=== PATIENT | male | born 1980 | race Asian ===

== ENCOUNTER 2018-05-13 06:58 | Inpatient (IN) | payer OTHER ==
[2018-05-13] MEDS ORDERED: SODIUM CHLORIDE 1,000 ML IV STA ×3 (07:19→11:41)
--- NOTE | 2018-05-13 07:23 | PDOC ---
History of Present Illness - General History Source: Patient Exam Limitations: No Limitations - History of Present Illness Initial Comments: 05/13/18 07:17 Patient is a 37 year old male with PMH of alcohol dependence presents to ED with complaints of right quadrant abdominal pain that radiates to the back. Pain started yesterday and got worse when the patient went to a birthday constitution party. The pain is associated with vomiting and nausea is sharp and constant. He denies fever, chills, diarrhea, constipation, dysuria, chest pain. Patient says "everything is fine, just give me something for the pain". He denies drinking alcohol prior to presentation. His last drink was 3 weeks ago. He has been taking Advil and ibuprofen for pain. He had a similar pain in the past but it was never this intense PMH: alcohol dependence PSH: none Meds: Ibuprofen, advil Allergies: none Social: last drink was 3 weeks ago, denies tobacco use, denies marijuana, denies IV drug use <Gale Blankenship - Last Filed: 05/13/18 09:59> <Jennifer Garcia - Last Filed: 05/13/18 13:13> - General Chief Complaint: Nausea/Vomiting Stated Complaint: NAUSEA,VOMITING Time Seen by Provider: 05/13/18 07:05 Past History - Past Medical History Anemia: No Asthma: Yes (Not on medication) Cardiac Disorders: No CVA: No COPD: No CHF: No Diabetes: No GI Disorders: No Disorders: No HTN: No Hypercholesterolemia: No Kidney Stones: No Liver Disease: No Seizures: No Thyroid Disease: No - Surgical History Abdominal Surgery: No Appendectomy: No Cardiac Surgery: No Cholecystectomy: No Lung Surgery: No Neurologic Surgery: No Orthopedic Surgery: No - Reproductive History Testicular Surgery: No - Suicide/Smoking/Psychosocial Hx Smoking History: Never smoked Have you smoked in the past 12 months: No Information on smoking cessation initiated: No Hx Alcohol Use: No Drug/Substance Use Hx: No Substance Use Type: Alcohol Hx Substance Use Treatment: Yes ([facility]) <Gale Blankenship - Last Filed: 05/13/18 09:59> <Jennifer Garcia - Last Filed: 05/13/18 13:13> - Past Medical History Allergies/Adverse Reactions: Allergies Allergy/AdvReac Type Severity Reaction Status Date / Time No Known Allergies Allergy Verified 05/13/18 07:05 Home Medications: Ambulatory Orders Albuterol Sulfate Inhaler - [Ventolin Hfa Inhaler -] 2 inh PO Q6H 08/12/15 Review of Systems - Review of Systems Able to Perform ROS?: Yes Constitutional: No: Chills, Fever HEENTM: No: Nose Congestion, Difficulty Swallowing Respiratory: No: Cough, Shortness of Breath Cardiac (ROS): No: Chest Pain ABD/GI: Yes: See HPI, Nausea, Vomiting, Abdominal cramping (Right sided abdominal pain) : Yes: Flank Pain. No: Dysuria, Hematuria Musculoskeletal: Yes: Back Pain. No: Joint Pain, Muscle Pain <Gale Blankenship - Last Filed: 05/13/18 09:59> *Physical Exam - Vital Signs Last Vital Signs Temp Pulse Resp BP Pulse Ox 97.6 F 77 18 154/72 99 05/13/18 07:05 05/13/18 07:05 05/13/18 07:05 05/13/18 07:05 05/13/18 07:05 - Physical Exam General Appearance: Yes: Appropriately Dressed, Mild Distress (Patient sitting in bed holding abdomen) HEENT: positive: EOMI, CHRIST, Normal Voice. negative: Pharyngeal Erythema, Tonsillar Exudate, Tonsillar Erythema Neck: positive: Trachea midline, Supple Respiratory/Chest: positive: Lungs Clear, Normal Breath Sounds. negative: Crackles, Rales, Wheezing Cardiovascular: positive: Regular Rhythm, Regular Rate, S1, S2. negative: JVD, Murmur Gastrointestinal/Abdominal: positive: Normal Bowel Sounds, Soft. negative: Guarding, Rebound, Tenderness Musculoskeletal: negative: CVA Tenderness, Vertebral Tenderness Extremity: positive: Normal Capillary Refill Neurologic: positive: loom checker II-XII NML intact, Fully Oriented, Alert, Normal Mood/ Affect, Normal Response <Gale Blankenship - Last Filed: 05/13/18 09:59> - Vital Signs Last Vital Signs Temp Pulse Resp BP Pulse Ox 98.0 F 68 18 159/104 100 05/13/18 12:44 05/13/18 12:44 05/13/18 07:05 05/13/18 12:44 05/13/18 12:44 <Jennifer Garcia - Last Filed: 05/13/18 13:13> Procedures - Bedside Ultrasound Bedside Ultrasound: Gallbladder Other: Kidney, bladder Remarks: 05/13/18 08:34 GB: normal in size, no wall thickening, no stones. Duct normal in size. Kidney: Hyperechoic focus in R kidney pelvis; possible stone will get spiral CT. L kidney normal in size. No hydronephrosis in R or L kidney. Bladder: Bladder is full. Hyperechoic focus in prostatic urethra; possible stone <Gale Blankenship - Last Filed: 05/13/18 09:59> ED Treatment Course - LABORATORY CBC & Chemistry Diagram: 05/13/18 08:00 05/13/18 08:00 <Gale Blankenship - Last Filed: 05/13/18 09:59> - LABORATORY CBC & Chemistry Diagram: 05/13/18 08:00 05/13/18 09:48 - ADDITIONAL ORDERS Additional order review: Laboratory Results 05/13/18 05/13/18 05/13/18 11:36 09:48 09:48 Sodium Potassium Chloride Carbon Dioxide Anion Gap BUN Creatinine Creat Clearance w eGFR Random Glucose Lactic Acid 2.1 H Calcium Total Bilirubin AST ALT Alkaline Phosphatase Total Protein Albumin Lipase Cancelled Urine Color Urine Appearance Urine pH Ur Specific [place] Urine Protein Urine Glucose (UA) Urine Ketones Urine Blood Urine Nitrite Urine Bilirubin Urine Urobilinogen Ur Leukocyte Esterase Opiates Screen Methadone Screen Barbiturate Screen Phencyclidine Screen Ur Amphetamines Screen MDMA (Ecstasy) Screen Benzodiazepines Screen Cocaine Screen U Marijuana (THC) Screen Alcohol, Quantitative < 5.0 05/13/18 05/13/18 05/13/18 09:48 09:48 09:48 Sodium 134 L Potassium 3.7 Chloride 102 Carbon Dioxide 22 D Anion Gap 10 BUN 17 Creatinine 0.9 Creat Clearance w eGFR > 60 Random Glucose 163 H D Lactic Acid Calcium 8.9 Total Bilirubin 0.4 AST 17 D ALT 39 D Alkaline Phosphatase 76 Total Protein 7.8 Albumin 4.2 Lipase 135 Urine Color Yellow Urine Appearance Clear Urine pH 8.0 Ur Specific [place] 1.024 Urine Protein Negative Urine Glucose (UA) 2+ H Urine Ketones 1+ H Urine Blood Negative Urine Nitrite Negative Urine Bilirubin Negative Urine Urobilinogen Negative Ur Leukocyte Esterase Negative Opiates Screen Negative Methadone Screen Negative Barbiturate Screen Negative Phencyclidine Screen Negative Ur Amphetamines Screen Negative MDMA (Ecstasy) Screen Negative Benzodiazepines Screen Negative Cocaine Screen Negative U Marijuana (THC) Screen Negative Alcohol, Quantitative 05/13/18 05/13/18 05/13/18 08:15 08:00 08:00 Sodium Potassium Chloride Carbon Dioxide Anion Gap BUN Creatinine Creat Clearance w eGFR Random Glucose Lactic Acid 2.8 H* Calcium Total Bilirubin AST ALT Alkaline Phosphatase Total Protein Albumin Lipase Cancelled Urine Color Urine Appearance Urine pH Ur Specific [place] Urine Protein Urine Glucose (UA) Urine Ketones Urine Blood Urine Nitrite Urine Bilirubin Urine Urobilinogen Ur Leukocyte Esterase Opiates Screen Methadone Screen Barbiturate Screen Phencyclidine Screen Ur Amphetamines Screen MDMA (Ecstasy) Screen Benzodiazepines Screen Cocaine Screen U Marijuana (THC) Screen Alcohol, Quantitative Cancelled 05/13/18 08:00 Sodium Cancelled Potassium Cancelled Chloride Cancelled Carbon Dioxide Cancelled Anion Gap Cancelled BUN Cancelled Creatinine Cancelled Creat Clearance w eGFR Cancelled Random Glucose Cancelled Lactic Acid Calcium Cancelled Total Bilirubin Cancelled AST Cancelled ALT Cancelled Alkaline Phosphatase Cancelled Total Protein Cancelled Albumin Cancelled Lipase Cancelled Urine Color Urine Appearance Urine pH Ur Specific [place] Urine Protein Urine Glucose (UA) Urine Ketones Urine Blood Urine Nitrite Urine Bilirubin Urine Urobilinogen Ur Leukocyte Esterase Opiates Screen Methadone Screen Barbiturate Screen Phencyclidine Screen Ur Amphetamines Screen MDMA (Ecstasy) Screen Benzodiazepines Screen Cocaine Screen U Marijuana (THC) Screen Alcohol, Quantitative 05/13/18 08:00 RBC 4.84 MCV 86.3 MCHC 34.1 RDW 14.3 MPV 8.2 Neutrophils % 89.5 H Lymphocytes % 7.4 L Monocytes % 2.6 L Eosinophils % 0.0 Basophils % 0.5 - Medications Given in the ED: ED Medications Discontinued Medications Generic Name Dose Route Start Last Admin Trade Name Zahida PRN Reason Stop Dose Admin Acetaminophen 1,000 mg 05/13/18 07:52 05/13/18 08:10 Ofirmev Injection - IVPB 05/13/18 07:53 1,000 mg ONCE ONE Administration Al Hydroxide/Mg Hydroxide 30 ml 05/13/18 07:52 05/13/18 08:49 Mylanta Oral Suspension - PO 05/13/18 07:53 30 ml ONCE ONE Administration Diphenhydramine HCl 25 mg 05/13/18 12:21 05/13/18 12:33 Benadryl Injection - IVPUSH 05/13/18 12:22 25 mg ONCE ONE Administration Sodium Chloride 1,000 mls @ 1,000 mls/hr 05/13/18 07:19 05/13/18 08:00 Normal Saline - IV 05/13/18 08:18 1,000 mls/hr ASDIR STA Administration Famotidine/Sodium Chloride 20 mg in 50 mls @ 100 mls/hr 05/13/18 07:53 08:10 Pepcid 20 Mg Premixed Ivpb - IVPB 05/13/18 08:22 100 mls/hr ONCE ONE Administration Sodium Chloride 1,000 mls @ 1,000 mls/hr 05/13/18 09:42 05/13/18 09:52 Normal Saline - IV 05/13/18 10:41 1,000 mls/hr ASDIR STA Administration Sodium Chloride 1,000 mls @ 1,000 mls/hr 05/13/18 11:41 05/13/18 12:12 Normal Saline - IV 05/13/18 12:40 1,000 mls/hr ASDIR STA Administration Famotidine/Sodium Chloride 20 mg in 50 mls @ 100 mls/hr 05/13/18 11:42 12:12 Pepcid 20 Mg Premixed Ivpb - IVPB 05/13/18 12:11 100 mls/hr ONCE ONE Administration Piperacillin Sod/Tazobactam 50 mls @ 100 mls/hr 05/13/18 11:47 05/13/18 12:33 Sod 3.375 gm/ Dextrose IVPB 05/13/18 12:16 100 mls/hr ONCE ONE Administration Protocol Morphine Sulfate 4 mg 05/13/18 09:43 05/13/18 09:54 Morphine Injection - IVPUSH 05/13/18 09:44 4 mg ONCE ONE Administration Morphine Sulfate 4 mg 05/13/18 11:42 05/13/18 12:12 Morphine Injection - IVPUSH 05/13/18 11:43 4 mg ONCE ONE Administration Ondansetron HCl 4 mg 05/13/18 07:52 05/13/18 08:10 Zofran Injection IVPUSH 05/13/18 07:53 4 mg ONCE ONE Administration <Jennifer Garcia - Last Filed: 05/13/18 13:13> Medical Decision Making - Medical Decision Making 05/13/18 08:06 Patient is a 37 year old male with PMH of alcohol dependence presenting to ED with complaints of R sided abdominal pain and vomiting. DDX: pancreatitis, appendicitis, cholecystitis, nephrolithiasis, gastritis, PUD CBC, CMP, lipase, alcohol level, UA and Uds ordered. Patient was given a bolus of NS and Tylenol for pain control. Elevated WBC at 13. Lactate elevated at 2.8 Ultrasound done at bedside. Gallbladder appeared normal in size, no stones. No ductal dilatation. Kidney: no hydronephrosis of R or L kidney. Possible stone in R kidney ( hyperechoic focus) Bladder: hyperechoic focus in prostatic urethra Can rule out cholecystitis. Spiral CT: <Gale Blankenship - Last Filed: 05/13/18 09:59> *DC/Admit/Observation/Transfer <Gale Blankenship - Last Filed: 05/13/18 09:59> - Discharge Dispostion Decision to Admit order: Yes Decision to Admit order Date/Time: Decision to Admit Order Category Date Time Status Decision to Admit to Hospital Routine Admission 05/13/18 11:46 Active <Jennifer Garcia - Last Filed: 05/13/18 13:13> Diagnosis at time of Disposition: Appendicitis
[2018-05-13] MEDS ORDERED: MAG HYDROX/AL HYDROX/SIMETH 30 ML UNIT-DOSE CUP PO ONE (07:52)
[2018-05-13] MEDS ORDERED: ACETAMINOPHEN 1000 MG/100 ML VIAL (NON FORMULARY) IVPB ONE (07:52)
[2018-05-13] MEDS ORDERED: ONDANSETRON 4 MG/2 ML VIAL IVPUSH ONE (07:52)
[2018-05-13] MEDS ORDERED: FAMOTIDINE 20 MG/50 ML IVPB 20 MG/50 ML MG IVPB ONE ×4 (07:53→12:01)
[2018-05-13] MEDS ORDERED: ONDANSETRON 4 MG/2 ML VIAL ONE (08:06)
[2018-05-13] MEDS ORDERED: ACETAMINOPHEN INJECTION 100 ML IVPB ONE (08:06)
[2018-05-13] MEDS ORDERED: MAG HYDROX/AL HYDROX/SIMETH 30 ML UNIT-DOSE CUP ONE (08:06)
[2018-05-13 08:29] LABS: BASO % 0.5 % (0-2.0); HEMATOCRIT 41.8 % (35.4-49); HEMOGLOBIN 14.2 GM/dL (11.7-16.9); LYMPH % 7.4 % (8-40); MCH 29.5 pg (25.7-33.7); MCHC 34.1 g/dl (32.0-35.9); MEAN CELL VOLUME 86.3 fl (80-96); MEAN PLT VOLUME 8.2 fl (7.5-11.1); MONO % 2.6 % (3.8-10.2); NEUT % 89.5 % (42.8-82.8); PLATELET COUNT 320 K/MM3 (134-434); RBC 4.84 M/mm3 (4.00-5.60); RDW 14.3 % (11.9-15.9); WHITE BLOOD COUNT 13.6 K/mm3 (4.0-10.0)
--- NOTE | 2018-05-13 08:44 | PDOC ---
Attending Attestation - HPI HPI: 05/13/18 08:55 The patient is a 37 year old male with a significant past medical history of alcohol dependence who presents to the emergency department for evaluation of a 1 day history of abdominal pain. The patient reports moderate right sided abdominal pain since yesterday evening. Pt describes the right sided pain as severe, radiating to the lower abdomen and back. He reports associated symptoms of decreased PO intake and 11 episodes of non-bloody emesis since last night. Pt states his abdominal pain worsened after vomiting secondary to eating food at a birthday republican. He endorses 1 episode of the aforementioned symptoms several months ago. The patient states his last alcohol consumption was 3 weeks ago. Of note, the patient reports taking advil this morning with alleviation to his symptoms. The patient denies history of gallstones, abdominal surgeries, chest pain, shortness of breath, headache, fever, chills, diarrhea, and constipation. Denies urinary frequency/urgency, dysuria, and hematuria. Allergies: NKDA Social History: Hx of alcohol dependence. No reported cigarette or drug use. Surgical History: Pt denies. <Мария Carranza - Last Filed: 05/13/18 08:55> - Resident Resident Name: Gale Blankenship - ED Attending Attestation I have performed the following: I have examined & evaluated the patient, The case was reviewed & discussed with the resident, I agree w/resident's findings & plan, Exceptions are as noted - Physicial Exam PE: 05/13/18 08:38 awake alert lungs clear bilaterally. heart rrr no mrg. abd soft mild ruq ttp. neg pierce's no rebound no guarding. no cva tenderness.ext wwp no edema. skin warm and dry. nuero alert oriented x 3. - Medical Decision Making 05/13/18 08:44 37 yo male with h/o etoh abuse. here with right upper quadrant pain, no mod factors. n/v. vomiting several times since yesterday. last etoh was 3 weeks ago. denies any other drug use. differential cholelithiasis, renal colic, gastritois, pancreatitis. plan zofran , fliuds, pain control. bedside us ruq and renal. possible ct if nondiagnostic. 05/13/18 09:57 focused ED ultrasound renal indication: flank right upper quad abd pain bilateral kidneys scanned in two planes. no hydronephrosis noted. intrarenal calcification/ hyperechoic focus noted possible calculus. bladder distended. impressions: right kidney with hyperechoic focus possible stone, no hydronephrosis. full bladder. focused ED ultrasound abd gallbladder, indication ruq pain gallbladder scanned in two planes. no cholelithiasis, normal wall no edema. no pericholecystic fluid, neg pierce's. cbd normal ( <4mm) impression: normal gallbladder. plan ct a/p r/o stone. pt still with pain, given morphine 4 mg. <Jennifer Garcia - Last Filed: 05/13/18 12:22> Heart Score/ECG Review #1 General ECG Interpretation: Sinus Rhythm (68), Normal Rate, Normal Intervals, No acute ischemic changes <Jennifer Garcia - Last Filed: 05/13/18 12:22> Attestations - Attestations Documentation prepared by Мария Carranza, acting as diagnostic medical sonographer for Jennifer Garcia MD. <Мария Carranza - Last Filed: 05/13/18 08:55>
[2018-05-13] MEDS ORDERED: morphine CARPU-JECT 4 MG/1 ML DISP.SYRIN IVPUSH ONE ×2 (09:43→11:42)
[2018-05-13] MEDS ORDERED: morphine SULFATE 4 MG/ML VIAL ONE (09:53)
[2018-05-13 10:19] LABS: URINE APPEARANCE CLEAR; URINE BILIRUBIN NEGATIVE (<2.0 mg/dL); URINE COLOR YELLOW; URINE GLUCOSE (UA) 2+ (NEGATIVE); URINE KETONE 1+ (NEGATIVE); URINE LEUK ESTERASE NEGATIVE (NEGATIVE); URINE NITRITE NEGATIVE (NEGATIVE); URINE PROTEIN NEGATIVE (NEGATIVE); URINE UROBILINOGEN NEGATIVE mg/dL (0.2-1.0)
[2018-05-13 10:46] LABS: ALBUMIN 4.2 g/dl (3.4-5.0); ALK PHOS 76 U/L (45-117); ANION GAP 10 (8-16); BILIRUBIN,TOTAL 0.4 mg/dL (0.2-1.0); BLOOD UREA NITROGEN 17 mg/dL (7-18); CALCIUM 8.9 mg/dL (8.5-10.1); CHLORIDE 102 mmol/L (98-107); CO2 22 mmol/L (21-32); CREATININE 0.9 mg/dL (0.7-1.3); GLUCOSE,RANDOM 163 mg/dL (74-106); LIPASE 135 U/L (73-393); POTASSIUM 3.7 mmol/L (3.5-5.1); SGOT/AST 17 U/L (15-37); SGPT/ALT 39 U/L (12-78); SODIUM 134 mmol/L (136-145); TOT PROT 7.8 g/dl (6.4-8.2)
[2018-05-13 10:53] LABS: COCAINE, UR NEGATIVE ng/ml (CUTOFF=300); METHADONE, UR NEGATIVE ng/ml (CUTOFF=300); OPIATES, URI NEGATIVE ng/ml (CUTOFF=300); PHENCYCLIDINE,URINE NEGATIVE ng/ml (CUTOFF=25); URINE AMPHETAMINES NEGATIVE ng/ml (CUTOFF=500); URINE BARBITURATES NEGATIVE ng/ml (CUTOFF=200); URINE BENZODIAZEPINES NEGATIVE ng/ml (CUTOFF=200)
[2018-05-13] MEDS ORDERED: PIPERACILLIN/TAZOB 3.375 GM 3.375 GM in DEXTROSE 5%-WATER - 50 ML IVPB ONE (11:47)
[2018-05-13] MEDS ORDERED: PIPERACILLIN/TAZOB 3.375 GM 3.375 GM/50 ML BAG IVPB ONE (12:01)
[2018-05-13] MEDS ORDERED: MORPHINE SULFATE 2 MG/ML VIAL ONE (12:01)
[2018-05-13 13:13] LABS: INR 1.14 (0.82-1.09); PROTHROMBIN TIME (PATIENT) 12.9 SEC (9.7-13.0)
[2018-05-13 13:16] LABS: ACTIVATED PTT 32.6 SECONDS (25.2-36.5)
--- NOTE | 2018-05-13 13:34 | HP ---
Admitting History and Physical - Admission Chief Complaint: abdominal pain History of Present Illness: This is a 37 year old male with pmhx of heavy alcohol dependence, stopped 3 weeks ago, pre diabetes, asthma who presented to the ED with abdominal pain and vomiting. Pt reports pain started yesterday, RUQ and then he went to a democrat. He returned and started vomiting with pain referring to bilateral back. By 6am he decided to come to ED. Denies fever, chills, sob, chest pain, bloody emesis. History Source: Patient Limitations to Obtaining History: No Limitations - Past Medical History Pulmonary: Yes: Asthma Endocrine: Yes: Diabetes Mellitus - Smoking History Smoking history: Never smoked Have you smoked in the past 12 months: No - Alcohol/Substance Use Hx Alcohol Use: No History of Substance Use: reports: None - Social History Usual Living Arrangement: Yes: With Spouse ADL: Independent Occupation: CPA History of Recent Travel: No Home Medications - Allergies Allergies/Adverse Reactions: Allergies Allergy/AdvReac Type Severity Reaction Status Date / Time No Known Allergies Allergy Verified 05/13/18 07:05 - Home Medications Home Medications: Ambulatory Orders Albuterol Sulfate Inhaler - [Ventolin Hfa Inhaler -] 2 inh PO Q6H 08/12/15 Family Disease History - Family Disease History Family Disease History: CA: Mother (Breast Ca- ) Review of Systems - Review of Systems Constitutional: reports: No Symptoms Eyes: reports: No Symptoms HENT: reports: No Symptoms Neck: reports: No Symptoms Cardiovascular: reports: No Symptoms Respiratory: reports: No Symptoms Gastrointestinal: reports: Abdominal Pain, Vomiting Genitourinary: reports: No Symptoms Musculoskeletal: reports: Back Pain Integumentary: reports: No Symptoms Neurological: reports: No Symptoms Endocrine: reports: No Symptoms Hematology/Lymphatic: reports: No Symptoms Physical Examination Vital Signs: Vital Signs Temperature 98.0 F 05/13/18 12:44 Pulse Rate 68 05/13/18 12:44 Respiratory Rate 18 05/13/18 07:05 Blood Pressure 159/104 05/13/18 12:44 O2 Sat by Pulse Oximetry (%) 100 05/13/18 12:44 Constitutional: Yes: Well Nourished Eyes: Yes: Conjunctiva Clear HENT: Yes: Atraumatic Neck: Yes: Supple Cardiovascular: Yes: Regular Rate and Rhythm, S1, S2 Respiratory: Yes: Regular, CTA Bilaterally Gastrointestinal: Yes: Soft, Other (RUQ tenderness, RLQ tenderness to deep palpation) Renal/: Yes: WNL Musculoskeletal: Yes: Back Pain Extremities: Yes: WNL Edema: No Neurological: Yes: Alert, Oriented, Cran Nerves II-XII Intact Labs: CBC, BMP 05/13/18 08:00 05/13/18 09:48 Imaging - Results Cat Scan: Report Reviewed (acute early appendicitis) Problem List - Problems (1) Appendicitis Code(s): K37 - UNSPECIFIED APPENDICITIS Assessment/Plan Assessment: 37 year male admitted with abdominal pain Plan: 1. Acute appendicitis - NPO - Zosyn in ED - For OR today for appendectomy - Defer abx until discuss findings with surgery - Cont IVF 2. Lactic acidosis - Due to above - Continue IVF 3. Leukocytosis - Due to above vs vomiting 4. DVT - SCDS Visit type - Emergency Visit Emergency Visit: Yes Care time: The patient presented to the Emergency Department on the above date and was hospitalized for further evaluation of their emergent condition. - New Patient This patient is new to me today: Yes Date on this admission: 05/13/18 - Critical Care Critical Care patient: No Hospitalist Screening - Colonoscopy Questionnaire Colonoscopy Questionnaire: Colonoscopy Questionnaire - Patient: 50 - 75 years old and never had a screening colonoscopy: Unknown History of colon or rectal polyps, or CA: Unknown History of IBD, Crohn's disease or UC: Unknown History of abdominal radiation therapy as a child: Unknown - Relative: 1 with colon or rectal CA, or polyps at age 60 or younger: Unknown Colon or rectal CA diagnosed at age 45 or younger: Unknown Multiple relatives with colon or rectal CA: Unknown - Outcome: Screening Result: Negative Screen
[2018-05-13] MEDS ORDERED: MIDAZOLAM HCL 2 MG/2 ML SINGLE DOSE VIAL ONE (13:40)
[2018-05-13] MEDS ORDERED: ROCURONIUM BROMIDE 50 MG/5 ML VIAL ONE (13:41)
[2018-05-13] MEDS ORDERED: LIDOCAINE HCL/PF 2% SDV 5ML VIAL ONE (13:41)
[2018-05-13] MEDS ORDERED: PROPOFOL 20 ML ONE (13:41)
[2018-05-13] MEDS ORDERED: BUPIVACAINE HCL/PF 0.5% (5MG/ML) 10 ML VIAL ONE (13:46)
[2018-05-13] MEDS ORDERED: morphine CARPU-JECT 2 MG/1 ML DISP.SYRIN IVPUSH PRN (13:48)
[2018-05-13] MEDS ORDERED: ONDANSETRON 4 MG/2 ML VIAL IVPUSH PRN ×3 (13:49→15:44)
[2018-05-13] MEDS ORDERED: MORPHINE SULFATE 2 MG/ML VIAL IVPUSH PRN (13:50)
[2018-05-13] MEDS ORDERED: PROMETHAZINE HCL 25 MG/1 ML VIAL IVPUSH PRN (13:51)
[2018-05-13] MEDS ORDERED: LACTATED RINGERS SOLUTION 1,000 ML IV SCH (14:00)
[2018-05-13] MEDS ORDERED: SODIUM CHLORIDE 1,000 ML IV SCH (14:00)
[2018-05-13] MEDS ORDERED: DEXAMETHASONE SOD PHOSPHATE 4 MG/1 ML VIAL ONE (14:24)
[2018-05-13] MEDS ORDERED: BUPIVACAINE HCL/PF 0.5% (5MG/ML) 10 ML VIAL IJ ONE ×2 (14:38)
[2018-05-13] MEDS ORDERED: GLYCOPYRROLATE 0.2 MG/1 ML VIAL ONE (14:50)
[2018-05-13] MEDS ORDERED: KETOROLAC TROMETHAMINE 30 MG/1 ML VIAL ONE (14:50)
[2018-05-13] MEDS ORDERED: NEOSTIGMINE METHYLSULFATE 0.5 MG/ML - 10 ML MDV ONE (14:51)
[2018-05-13] MEDS ORDERED: oxyCODONE HCL 5 MG TABLET PO PRN (15:30)
[2018-05-13] MEDS ORDERED: ALBUTEROL SO4 8 GM HFA INHALER IH PRN (15:31)
--- NOTE | 2018-05-13 15:33 | OP ---
Operative Note - Note: Operative Date: 05/13/18 Pre-Operative Diagnosis: acute appendicitis Operation: lap appendectomy Findings: acute appendicitis Post-Operative Diagnosis: Same as Pre-op Surgeon: Kalpesh Godwin Field Operations Supervisor: Latisha Arteaga Anesthesiologist/AIR PURIFIER SERVICER: Del Chambers Anesthesia: General Specimens Removed: appendix Estimated Blood Loss (mls): 20 Drains & Tubes with Location: 10 mm LOBO
--- NOTE | 2018-05-13 15:34 | SURG ---
Surgery Lighting Specialist Note Lighting Specialist: Latisha Arteaga PA-C Date of Service: 05/13/18 Diagnosis: acute appendicitis Procedure: laparoscopic appendectomy I was present for the entirety of the operative procedure. For further detail, please refer to operative report. Visit type - Case Type Case Type: ED Admission - Emergency Emergency Visit: Yes Care time: The patient presented to the Emergency Department on the above date and was hospitalized for further evaluation of their emergent condition. - New patient This patient is new to me today: Yes Date on this admission: 05/13/18
[2018-05-13] MEDS: LACTATED RINGERS SOLUTION 1,000 ML IV SCH (15:56)
[2018-05-13] MEDS: ACETAMINOPHEN 325 MG TABLET (FP) PO SCH (18:34)
[2018-05-13 19:34] VITALS: BMI 27.3
[2018-05-13] MEDS: HEPARIN NA (PORCINE) 5,000 UNITS/ML 1ML VIAL SQ SCH (22:23)
[2018-05-13] MEDS ORDERED: KETOROLAC TROMETHAMINE 30 MG/1 ML VIAL IVPUSH PRN (22:28)
[2018-05-14] MEDS: ACETAMINOPHEN 325 MG TABLET (FP) PO SCH ×4 (00:11→12:33)
[2018-05-14] MEDS: oxyCODONE HCL 5 MG TABLET PO PRN ×5 (00:31→22:12)
[2018-05-14] MEDS: LACTATED RINGERS SOLUTION 1,000 ML IV SCH (01:08)
[2018-05-14 08:34] LABS: BASO % 0.1 % (0-2.0); HEMATOCRIT 36.9 % (35.4-49); HEMOGLOBIN 12.6 GM/dL (11.7-16.9); LYMPH % 5.9 % (8-40); MCH 29.2 pg (25.7-33.7); MCHC 34.2 g/dl (32.0-35.9); MEAN CELL VOLUME 85.4 fl (80-96); MEAN PLT VOLUME 7.8 fl (7.5-11.1); MONO % 5.6 % (3.8-10.2); NEUT % 88.4 % (42.8-82.8); PLATELET COUNT 274 K/MM3 (134-434); RBC 4.32 M/mm3 (4.00-5.60); RDW 14.2 % (11.9-15.9); WHITE BLOOD COUNT 19.5 K/mm3 (4.0-10.0)
--- NOTE | 2018-05-14 08:35 | EKG ---
Test Reason : Blood Pressure : / mmHG Vent. Rate : 068 BPM Atrial Rate : 068 BPM P-R Int : 126 ms QRS Dur : 108 ms QT Int : 406 ms P-R-T Axes : 046 059 040 degrees QTc Int : 431 ms NORMAL SINUS RHYTHM NORMAL ECG WHEN COMPARED WITH ECG OF 20-APR-2018 21:36, VENT. RATE HAS DECREASED BY 42 BPM Confirmed by RACHEL ALBERTO MD ([id number]) on 05/14/2018 8:34:53 AM Referred By: Confirmed By:RACHEL ALBERTO MD
[2018-05-14 09:05] LABS: CHLORIDE 99 mmol/L (98-107); POTASSIUM 3.5 mmol/L (3.5-5.1); SODIUM 133 mmol/L (136-145)
--- NOTE | 2018-05-14 09:13 | PN ---
Progress Note, Physician Chief Complaint: day #1 s/p lap AP - Current Medication List Current Medications: Active Medications Acetaminophen (Tylenol -) 650 mg PO Q6H [facility] Stop: 05/14/18 12:01 Last Admin: 05/14/18 06:46 Dose: 650 mg Albuterol Sulfate (Ventolin Hfa Inhaler -) 2 puff IH Q6H PRN PRN Reason: SHORT OF BREATH/WHEEZING Heparin Sodium (Porcine) (Heparin -) 5,000 unit SQ BID PAUL Last Admin: 05/13/18 22:23 Dose: 5,000 unit Sodium Chloride (Normal Saline -) 1,000 mls @ 83 mls/hr IV ASDIR PAUL Ondansetron HCl (Zofran Injection) 4 mg IVPUSH Q6H PRN PRN Reason: NAUSEA Oxycodone HCl (Roxicodone -) 5 mg PO Q6H PRN PRN Reason: PAIN LEVEL 1-5 Last Admin: 05/13/18 18:32 Dose: 5 mg Oxycodone HCl (Roxicodone -) 10 mg PO Q6H PRN PRN Reason: PAIN LEVEL 6-10 Last Admin: 05/14/18 06:23 Dose: 10 mg - Objective Vital Signs: Vital Signs Temperature 98.9 F 05/14/18 09:05 Pulse Rate 104 H 05/14/18 09:05 Respiratory Rate 20 05/14/18 09:05 Blood Pressure 107/55 05/14/18 09:05 O2 Sat by Pulse Oximetry (%) 97 05/14/18 09:06 Labs: CBC, BMP 05/14/18 07:58 INR, PTT INR 1.14 (0.82-1.09) 05/13/18 12:46 Assessment/Plan No anesthetic issues; pain well controlled, no N/V, ambulating well. Minor c/o urinary frequency, pt to discuss w/ surgical team
[2018-05-14] MEDS ORDERED: SODIUM CHLORIDE 1,000 ML IV SCH ×2 (09:15→11:47)
[2018-05-14 09:17] LABS: ALBUMIN 3.8 g/dl (3.4-5.0); ALK PHOS 63 U/L (45-117); ANION GAP 9 (8-16); BILIRUBIN,TOTAL 0.8 mg/dL (0.2-1.0); BLOOD UREA NITROGEN 11 mg/dL (7-18); CALCIUM 8.9 mg/dL (8.5-10.1); CO2 25 mmol/L (21-32); CREATININE 1.1 mg/dL (0.7-1.3); GLUCOSE,RANDOM 126 mg/dL (74-106); MAGNESIUM 1.9 mg/dL (1.8-2.4); PHOSPHOROUS 2.8 mg/dL (2.5-4.9); SGOT/AST 14 U/L (15-37); SGPT/ALT 32 U/L (12-78); TOT PROT 7.4 g/dl (6.4-8.2)
[2018-05-14] MEDS: HEPARIN NA (PORCINE) 5,000 UNITS/ML 1ML VIAL SQ SCH ×2 (09:18→17:44)
--- NOTE | 2018-05-14 11:23 | PN ---
Progress Note (short form) - Note Progress Note: Attending Surgeon POD#1 No c/o; tolerated clear liquids; ambulating and voiding VSS T max 101.9 abdo-soft and non tender; port sites c/d/i LOBO-seropurulent WBC 19.2 IMP: s/p lap appendectomy PLAN. Continue present tx.; will start antibiotics given presence of fecalith at time of surgery(transection of the appendix) and sero purulent drainageg and elevated WBBC; will get ID Consult as well. Kalpesh Godwin MD FACS
[2018-05-14] MEDS ORDERED: CEFTRIAXONE 2 GM in DEXTROSE 5%-WATER 100 ML IVPB ONE (11:45)
--- NOTE | 2018-05-14 11:54 | PN ---
Physical Exam: SUBJECTIVE: Patient seen and examined. He has abdominal tenderness, has no passed gas, is urinating. Per RN states he has urinary hesitancy, no pain. OBJECTIVE: Vital Signs Period Temp Pulse Resp BP Sys/Farfan Pulse Ox Last 24 Hr 98 F-101.7 F 68-112 18-20 103-159/55-104 97-100 PE Neuro: alert, awake, cn 2-12intact Pulm: diminished basilar crackles CV: s1 s2 rrr no mrg Abd: distended, LLQ drain cloudy drainage, lower pubic site tenderness x3 incision sites cdi Ext: warm, no le edema Laboratory Results - last 24 hr 05/13/18 05/13/18 05/13/18 11:36 12:46 12:50 WBC RBC Hgb Hct MCV MCH MCHC RDW Plt Count MPV Absolute Neuts (auto) Neutrophils % Lymphocytes % Monocytes % Eosinophils % Basophils % Nucleated RBC % PT with INR 12.90 INR 1.14 PTT (Actin FS) 32.6 Sodium Potassium Chloride Carbon Dioxide Anion Gap BUN Creatinine Creat Clearance w eGFR Random Glucose Lactic Acid 2.1 H Calcium Phosphorus Magnesium Total Bilirubin AST ALT Alkaline Phosphatase Total Protein Albumin Blood Type A POSITIVE Antibody Screen Negative 05/14/18 05/14/18 05/14/18 07:58 07:58 07:58 WBC 19.5 H RBC 4.32 Hgb 12.6 Hct 36.9 MCV 85.4 MCH 29.2 MCHC 34.2 RDW 14.2 Plt Count 274 MPV 7.8 Absolute Neuts (auto) 17.3 Neutrophils % 88.4 H Lymphocytes % 5.9 L D Monocytes % 5.6 D Eosinophils % 0.0 Basophils % 0.1 Nucleated RBC % 0 PT with INR INR PTT (Actin FS) Sodium 133 L Potassium 3.5 Chloride 99 Carbon Dioxide 25 Anion Gap 9 BUN 11 Creatinine 1.1 Creat Clearance w eGFR > 60 Random Glucose 126 H D Lactic Acid 1.6 Calcium 8.9 Phosphorus 2.8 Magnesium 1.9 Total Bilirubin 0.8 AST 14 L ALT 32 Alkaline Phosphatase 63 D Total Protein 7.4 Albumin 3.8 Blood Type Antibody Screen Active Medications Generic Name Dose Route Start Last Admin Trade Name Freq PRN Reason Stop Dose Admin Acetaminophen 650 mg 05/13/18 18:00 05/14/18 06:46 Tylenol - PO 05/14/18 12:01 650 mg Q6H PAUL Administration Albuterol Sulfate 2 puff 05/13/18 15:31 Ventolin Hfa Inhaler - IH Q6H PRN SHORT OF BREATH/WHEEZING Heparin Sodium (Porcine) 5,000 unit 05/14/18 14:00 Heparin - SQ TID PAUL Ceftriaxone Sodium 2 gm/ 100 mls @ 200 mls/hr 05/14/18 11:45 Dextrose IVPB 05/14/18 12:14 ONCE ONE Metronidazole 500 mg in 100 mls @ 100 mls/hr 05/14/18 18:00 Flagyl 500mg Premixed Ivpb - IVPB Q8H-IV PAUL Sodium Chloride 1,000 mls @ 60 mls/hr 05/14/18 11:47 Normal Saline - IV ASDIR PAUL Ceftriaxone Sodium 2 gm/ 50 mls @ 100 mls/hr 05/15/18 10:00 Dextrose IVPB DAILY APUL Ondansetron HCl 4 mg 05/13/18 15:44 Zofran Injection IVPUSH Q6H PRN NAUSEA Oxycodone HCl 5 mg 05/13/18 15:30 05/13/18 18:32 Roxicodone - PO 5 mg Q6H PRN Administration PAIN LEVEL 1-5 Oxycodone HCl 10 mg 05/13/18 15:30 05/14/18 06:23 Roxicodone - PO 10 mg Q6H PRN Administration PAIN LEVEL 6-10 Assessment: 37 year male admitted with abdominal pain Plan: 1. Acute appendicitis - s/p appendectomy 05/13, fecaliths found - Maintain drain - Start Ceftriaxone 2mg daily, flagyl q8hr - Clear liquid diet - Continue gentle hydration - Obtain blood cx if persistent fever - D/w surgery 2. Lactic acidosis - Resolved 3. Leukocytosis - See above 4. DVT - Heparin sq Problem List - Problems (1) Appendicitis Code(s): K37 - UNSPECIFIED APPENDICITIS Visit type - Emergency Visit Emergency Visit: Yes Care time: The patient presented to the Emergency Department on the above date and was hospitalized for further evaluation of their emergent condition. - New Patient This patient is new to me today: No - Critical Care Critical Care patient: No
[2018-05-14] MEDS ORDERED: DEXTROSE 5%-WATER 100 ML IVPB ONE (11:58)
--- NOTE | 2018-05-14 12:13 | OP ---
DATE OF OPERATION: 05/13/2018 PREOPERATIVE DIAGNOSIS: Acute appendicitis. POSTOPERATIVE DIAGNOSIS: Acute appendicitis. PROCEDURE: Laparoscopic appendectomy. SURGEON: Kalpesh Godwin MD ACCOUNTING ASSOCIATE: PANKAJ Gleason ANESTHESIA: General. OPERATIVE FINDINGS: Acute suppurative appendicitis. The rest of the findings are unremarkable. PROCEDURE: The patient was placed on the operating room table in supine position. After the induction of general anesthesia, the patient's abdomen was prepped with ChloraPrep and draped in sterile fashion. Pneumoperitoneum was established above the umbilicus using a Veress needle to an intraabdominal pressure of 15 mmHg. A 5-mm port was placed at the umbilicus and laparoscopy carried out. The previously-noted findings were observed. An additional 12-mm suprapubic and left lower quadrant 5-mm port were placed. The appendix was identified and grasped and the mesoappendix serially divided using the LigaSure device. Additional blunt dissection was carried out to identify the base of the appendix at the convergence of the 3 tinea. At this point, a 60-mm purple load EndoGIA was fired across the base of the appendix. The appendix was then placed in an EndoCatch and brought out through the suprapubic port. Pneumoperitoneum was reestablished and copious irrigation carried out with normal saline. There was some purulent fluid in the right lower quadrant, which was suctioned as well. Staple line was noted to be hemostatic and then a 10-mm Varun-Hodge drain was placed in the right lower quadrant and brought out through the left lower quadrant 5-mm port site. The drain was secured to the skin with 2-0 silk suture and connected to bulb suction. Pneumoperitoneum was released after all port sites were removed under laparoscopic vision without evidence of bleeding from the port sites. All port sites were infiltrated with 0.5% Marcaine and the defect in the suprapubic fascia was closed with a single 0 Vicryl [id number] suture. The skin incisions were closed with 4-0 Vicryl in a subcuticular fashion, followed by Steri-Strips and dry sterile dressings. The procedure was terminated at this point and the patient aroused from general anesthesia and transferred to the postanesthesia care unit in stable condition, awake and alert. ESTIMATED BLOOD LOSS: 15 mL. REPLACEMENTS: Crystalloid. DRAINS: One 10-mm Varun-Hodge. SPECIMEN: Appendix to pathology. I, Kalpesh Godwin, was physically present in the operating room from the time the patient was placed on the operating room table until he was transferred to the postanesthesia care unit in my company. MD IDRIS Smith/[id number] MTDD
[2018-05-14] MEDS ORDERED: oxyCODONE HCL 5 MG TABLET PO PRN (12:33)
[2018-05-14] MEDS: SODIUM CHLORIDE 1,000 ML IV SCH (13:01)
[2018-05-14 13:56] LABS: URINE APPEARANCE CLEAR; URINE BILIRUBIN NEGATIVE (<2.0 mg/dL); URINE COLOR STRAW; URINE GLUCOSE (UA) 1+ (NEGATIVE); URINE KETONE NEGATIVE (NEGATIVE); URINE LEUK ESTERASE NEGATIVE (NEGATIVE); URINE NITRITE NEGATIVE (NEGATIVE); URINE PROTEIN NEGATIVE (NEGATIVE); URINE UROBILINOGEN NEGATIVE mg/dL (0.2-1.0)
[2018-05-14] MEDS ORDERED: HEPARIN NA (PORCINE) 5,000 UNITS/ML 1ML VIAL SQ SCH (14:00)
[2018-05-14] MEDS: ACETAMINOPHEN 1000 MG/100 ML VIAL (NON FORMULARY) IVPB PRN (18:44)
[2018-05-15] MEDS: ACETAMINOPHEN 1000 MG/100 ML VIAL (NON FORMULARY) IVPB PRN (00:55)
[2018-05-15] MEDS: HEPARIN NA (PORCINE) 5,000 UNITS/ML 1ML VIAL SQ SCH ×3 (02:32→17:45)
[2018-05-15] MEDS: oxyCODONE HCL 5 MG TABLET PO PRN ×4 (02:33→21:45)
[2018-05-15] MEDS: SODIUM CHLORIDE 1,000 ML IV SCH ×2 (05:28→17:45)
[2018-05-15 07:15] LABS: BASO % 0.4 % (0-2.0); EOS % 0.1 % (0-4.5); HEMATOCRIT 34.5 % (35.4-49); HEMOGLOBIN 11.6 GM/dL (11.7-16.9); LYMPH % 10.4 % (8-40); MCH 29.1 pg (25.7-33.7); MCHC 33.6 g/dl (32.0-35.9); MEAN CELL VOLUME 86.7 fl (80-96); MEAN PLT VOLUME 7.9 fl (7.5-11.1); MONO % 6.1 % (3.8-10.2); PLATELET COUNT 215 K/MM3 (134-434); RBC 3.98 M/mm3 (4.00-5.60); RDW 14.5 % (11.9-15.9); WHITE BLOOD COUNT 15.1 K/mm3 (4.0-10.0)
[2018-05-15 07:52] LABS: ALBUMIN 3.1 g/dl (3.4-5.0); ALK PHOS 53 U/L (45-117); ANION GAP 6 (8-16); BILIRUBIN,TOTAL 0.9 mg/dL (0.2-1.0); BLOOD UREA NITROGEN 7 mg/dL (7-18); CALCIUM 8.2 mg/dL (8.5-10.1); CHLORIDE 101 mmol/L (98-107); CO2 29 mmol/L (21-32); GLUCOSE,RANDOM 108 mg/dL (74-106); POTASSIUM 3.2 mmol/L (3.5-5.1); SGOT/AST 12 U/L (15-37); SGPT/ALT 24 U/L (12-78); SODIUM 136 mmol/L (136-145); TOT PROT 6.3 g/dl (6.4-8.2)
[2018-05-15] MEDS ORDERED: DEXTROSE 5%-WATER 100 ML IVPB ONE (09:02)
[2018-05-15] MEDS ORDERED: cefTRIAXone SODIUM 1 GM VIAL ONE (09:02)
[2018-05-15] MEDS: ACETAMINOPHEN 325 MG TABLET (FP) PO PRN ×2 (09:10→17:46)
[2018-05-15] MEDS ORDERED: CEFTRIAXONE 2 GM in DEXTROSE 5%-WATER 100 ML IVPB SCH (10:00)
--- NOTE | 2018-05-15 10:03 | PN ---
Progress Note (short form) - Note Progress Note: POD #2 Alert. Doing well. Ambulating unassisted. Voiding spontaneously. Tolerating clears. Using his incentive spirometer as directed. Had Tm 101F at 1:10AM. Denies n/v/c, CP or SOB. Last Vital Signs Temp Pulse Resp BP Pulse Ox 98.5 F 97 H 20 97/54 97 05/15/18 06:00 05/15/18 06:00 05/15/18 06:00 05/15/18 06:00 05/14/18 21:00 WBC TREND 05/13/18 05/14/18 05/15/18 08:00 07:58 06:10 WBC 13.6 H 19.5 H 15.1 H BMP 05/15/18 06:10 Gen: alert. nad Abd: softly distended. All surgical ports intact No hematoma. LOBO 155mL/24hr ( seropurulent). BSx4 LE: soft. nt bilat Problem List - Problems (1) Appendicitis Assessment/Plan: POD #2 s/p Lap appy (during surgery, noted that appendocolith present during stapling off base of appendix. Cont oob and ambulate Monitor LOBO output and consistency Hypokalemic --> replete K Advance diet as tolerated Pain management PRN f/u cultures Tylenol 650mg PO for fever > 100.3F Code(s): K37 - UNSPECIFIED APPENDICITIS
[2018-05-15] MEDS ORDERED: PIPERACILLIN/TAZOB 3.375 GM 3.375 GM in DEXTROSE 5%-WATER - 50 ML IVPB SCH (12:45)
[2018-05-15] MEDS ORDERED: POTASSIUM CHLORIDE ORAL LIQUID 20 MEQ/15 ML PO ONE (13:00)
[2018-05-15] MEDS ORDERED: PIPERACILLIN/TAZOBACTAM 3.375 GM VIAL IVPB ONE ×2 (13:03→17:33)
[2018-05-15] MEDS ORDERED: DEXTROSE 5%-WATER - 50 ML IVPB ONE ×2 (13:03→17:33)
--- NOTE | 2018-05-15 14:24 | CON.ID ---
Consult Consult Specialty:: infectious diseases Reason for Consultation:: fevers - History of Present Illness Chief Complaint: abd distension History of Present Illness: 37 year old male with pmhx of heavy alcohol dependence, stopped 3 weeks ago, pre diabetes, asthma who presented admitted with abdominal pain and vomiting which was associated with vomiting . Denies fever, chills, sob, chest pain, bloody emesis. patient was seen by surgery and patient underwent lap jada and drainage tube present post op patient having abd distension and has not passed any gases and spiking fevers which inspite of ceftriaxone and flagyl not being controlled currently he has abd distension and pain with fevers - History Source History Provided By: Patient Limitations to Obtaining History: No Limitations - Past Medical History Pulmonary: Yes: Asthma Endocrine: Yes: Diabetes Mellitus - Alcohol/Substance Use Hx Alcohol Use: No History of Substance Use: reports: None - Smoking History Smoking history: Never smoked Have you smoked in the past 12 months: No - Social History ADL: Independent Occupation: CPA History of Recent Travel: No Home Medications - Allergies Allergies/Adverse Reactions: Allergies Allergy/AdvReac Type Severity Reaction Status Date / Time No Known Allergies Allergy Verified 05/13/18 07:05 - Home Medications Home Medications: Ambulatory Orders Albuterol Sulfate Inhaler - [Ventolin Hfa Inhaler -] 2 inh PO Q6H 08/12/15 Family Disease History - Family Disease History Family Disease History: CA: Mother (Breast Ca- ) Review of Systems - Review of Systems Constitutional: reports: No Symptoms Eyes: reports: No Symptoms HENT: reports: No Symptoms Neck: reports: No Symptoms Cardiovascular: reports: No Symptoms Respiratory: reports: No Symptoms Gastrointestinal: reports: Abdominal Pain, Bloating, Other (hig pitched bowel sounds) Genitourinary: reports: No Symptoms Musculoskeletal: reports: No Symptoms Integumentary: reports: No Symptoms Neurological: reports: No Symptoms Endocrine: reports: No Symptoms Hematology/Lymphatic: reports: No Symptoms Psychiatric: reports: No Symptoms Physical Exam Vital Signs: Vital Signs Temperature 101.8 F H 05/15/18 10:00 Pulse Rate 123 H 05/15/18 10:00 Respiratory Rate 20 05/15/18 10:00 Blood Pressure 130/75 05/15/18 10:00 O2 Sat by Pulse Oximetry (%) 100 05/15/18 09:00 Constitutional: Yes: Well Nourished, Calm, Mild Distress Eyes: Yes: Conjunctiva Clear HENT: Yes: Atraumatic, Normocephalic Neck: Yes: Supple, Trachea Midline Cardiovascular: Yes: Regular Rate and Rhythm Respiratory: Yes: Regular, Poor Air Entry (bases) Gastrointestinal: Yes: Distention, Hyperactive Bowel Sounds, Tenderness, Other Musculoskeletal: Yes: WNL Extremities: Yes: WNL Wound/Incision: Yes: Clean/Dry, Other (drain in place) Neurological: Yes: Alert, Oriented Psychiatric: Yes: Alert, Oriented Labs: CBC, BMP 05/15/18 06:10 05/15/18 06:10 Imaging - Results Chest X-ray: Report Reviewed, Image Reviewed Cat Scan: Report Reviewed, Image Reviewed Assessment/Plan 1. Acute appendicitis 2. Lactic acidosis 3. Leukocytosis 4 fever plan imaging studies will change abx to zosyn npo iv fluids monitor symptomatically
--- NOTE | 2018-05-15 15:23 | PN ---
Physical Exam: SUBJECTIVE: Patient seen and examined. Pt reports pain at incision site, + BM, no flatulence, abdominal distention. Denies rigors today. Events: - Febrile t max 102.9 - Blood cx pending , UA negative OBJECTIVE: Vital Signs Period Temp Pulse Resp BP Sys/Farfan Pulse Ox Last 24 Hr 98.3 F-102.9 F 93-123 20-24 97-130/52-75 97-100 PE Neuro: alert, awake, cn 2-12intact Pulm: diminished CV: s1 s2 rrr no mrg Abd: distended, firm, LLQ drain cloudy drainage, abdominal tenderness x3 incision sites cdi , hyperactive bowel sounds RUQ/LUQ Ext: warm, no le edema Laboratory Results - last 24 hr 05/15/18 05/15/18 05/15/18 06:10 06:10 06:10 WBC 15.1 H RBC 3.98 L Hgb 11.6 L Hct 34.5 L MCV 86.7 MCH 29.1 MCHC 33.6 RDW 14.5 Plt Count 215 D MPV 7.9 Absolute Neuts (auto) 12.6 Neutrophils % 83.0 H Lymphocytes % 10.4 D Monocytes % 6.1 Eosinophils % 0.1 D Basophils % 0.4 D Nucleated RBC % 0 Sodium 136 Potassium 3.2 L Chloride 101 Carbon Dioxide 29 Anion Gap 6 L BUN 7 Creatinine 1.0 Creat Clearance w eGFR > 60 Random Glucose 108 H Lactic Acid 0.8 Calcium 8.2 L Total Bilirubin 0.9 AST 12 L ALT 24 D Alkaline Phosphatase 53 D Total Protein 6.3 L Albumin 3.1 L Active Medications Generic Name Dose Route Start Last Admin Trade Name Zahida PRN Reason Stop Dose Admin Acetaminophen 1,000 mg 05/14/18 18:28 05/15/18 00:55 Ofirmev Injection - IVPB 1,000 mg Q6H PRN Administration FEVER Acetaminophen 650 mg 05/14/18 18:29 05/15/18 09:10 Tylenol - PO 650 mg Q6H PRN Administration PAIN LEVEL 1 - 3 Albuterol Sulfate 2 puff 05/13/18 15:31 Ventolin Hfa Inhaler - IH Q6H PRN SHORT OF BREATH/WHEEZING Heparin Sodium (Porcine) 5,000 unit 05/14/18 15:28 05/15/18 09:07 Heparin - SQ 5,000 unit Q8H-IV PAUL Administration Ceftriaxone Sodium 2 gm/ 100 mls @ 200 mls/hr 05/15/18 10:00 05/15/18 09:07 Dextrose IVPB 200 mls/hr DAILY PAUL Administration Metronidazole 500 mg in 100 mls @ 100 mls/hr 05/14/18 13:00 05/15/18 09:09 Flagyl 500mg Premixed Ivpb - IVPB 100 mls/hr Q8H-IV PAUL Administration Sodium Chloride 1,000 mls @ 100 mls/hr 05/14/18 12:32 05/15/18 05:28 Normal Saline - IV 100 mls/hr ASDIR PAUL Administration Piperacillin Sod/Tazobactam 50 mls @ 100 mls/hr 05/15/18 19:00 Sod 3.375 gm/ Dextrose IVPB Q8H-IV PAUL Protocol Ondansetron HCl 4 mg 05/13/18 15:44 Zofran Injection IVPUSH Q6H PRN NAUSEA Oxycodone HCl 5 mg 05/14/18 12:33 05/15/18 06:58 Roxicodone - PO 5 mg Q4H PRN Administration PAIN LEVEL 4 - 6 Oxycodone HCl 10 mg 05/14/18 17:09 05/15/18 13:08 Roxicodone - PO 10 mg Q4H PRN Administration PAIN LEVEL 7 - 10 Assessment: 37 year male admitted with abdominal pain Plan: 1. Sepsis due to acute appendicitis - s/p appendectomy 05/13, fecaliths found - Maintain drain - Concern for intra abdominal obstruction, obtain flat and upright abd xray per surgery - Broaden abx to zosyn - Continue IVF - Discussed with ID 2. Lactic acidosis - WNL 3. Leukocytosis - Improving 4. Hypokalemia - Replete 40meq kcl 5. DVT - Heparin sq Problem List - Problems (1) Appendicitis Code(s): K37 - UNSPECIFIED APPENDICITIS Visit type - Emergency Visit Emergency Visit: Yes ED Registration Date: 05/13/18 Care time: The patient presented to the Emergency Department on the above date and was hospitalized for further evaluation of their emergent condition. - New Patient This patient is new to me today: No - Critical Care Critical Care patient: No
[2018-05-15] MEDS: PIPERACILLIN/TAZOB 3.375 GM 3.375 GM in DEXTROSE 5%-WATER - 50 ML IVPB SCH (19:57)
[2018-05-16] MEDS ORDERED: DEXTROSE 5%-WATER - 50 ML IVPB ONE ×3 (01:47→16:57)
[2018-05-16] MEDS ORDERED: PIPERACILLIN/TAZOBACTAM 3.375 GM VIAL IVPB ONE ×3 (01:47→16:56)
[2018-05-16] MEDS: HEPARIN NA (PORCINE) 5,000 UNITS/ML 1ML VIAL SQ SCH ×3 (02:01→17:16)
[2018-05-16] MEDS: ACETAMINOPHEN 325 MG TABLET (FP) PO PRN ×2 (02:02→10:20)
[2018-05-16] MEDS: oxyCODONE HCL 5 MG TABLET PO PRN ×3 (02:02→10:20)
[2018-05-16] MEDS: PIPERACILLIN/TAZOB 3.375 GM 3.375 GM in DEXTROSE 5%-WATER - 50 ML IVPB SCH ×3 (02:02→17:17)
--- NOTE | 2018-05-16 07:58 | PN ---
Progress Note (short form) - Note Progress Note: POD #3 Alert. Doing well. Ambulating unassisted. Voiding spontaneously. States he feels much better today compared to yesterday. AXR yesterday showed possible LEFT colon obstruction. Reverted back to NPO. This morning had 1 episode of diarrhea (non-bloody) and passing a lot of flatus. Denies n/v/f/c, CP or SOB. Last Vital Signs Temp Pulse Resp BP Pulse Ox 97.9 F 62 20 143/71 99 05/16/18 05:55 05/16/18 05:55 05/16/18 05:55 05/16/18 05:55 05/15/18 21:00 Microbiology 05/14/18 13:43 Blood - Peripheral Venous Blood Culture - Preliminary NO GROWTH AFTER 24 HOURS, INCUBATION TO CONT PE Gen: alert. nad. ABD: Softly distended. All surgical ports c/d/i. Typmpanic throughout. No rebound/guarding. LOBO 60mL seropurulent/24hrs LE: SCDs bilat. Soft. NT bilat Problem List - Problems (1) Appendicitis Assessment/Plan: POD #3 s/p Lap appy Cont NPO / IVF Cont OOB and ambulate IVABX per ID f/u UA Repeat AXR ordered (comparative study) f/u repeat K to see if hypokalemia resolved from yesterday Tylenol for fever > 100.3F Incentive spirometer Surgery Team to cont following. Code(s): K37 - UNSPECIFIED APPENDICITIS
[2018-05-16 08:16] LABS: BASO % 0.3 % (0-2.0); EOS % 0.2 % (0-4.5); HEMATOCRIT 36.1 % (35.4-49); HEMOGLOBIN 11.9 GM/dL (11.7-16.9); LYMPH % 10.8 % (8-40); MCH 28.8 pg (25.7-33.7); MCHC 32.9 g/dl (32.0-35.9); MEAN CELL VOLUME 87.4 fl (80-96); MONO % 7.1 % (3.8-10.2); NEUT % 81.6 % (42.8-82.8); PLATELET COUNT 269 K/MM3 (134-434); RBC 4.12 M/mm3 (4.00-5.60); RDW 14.5 % (11.9-15.9); WHITE BLOOD COUNT 15.1 K/mm3 (4.0-10.0)
[2018-05-16 08:37] LABS: ANION GAP 9 (8-16); BLOOD UREA NITROGEN 9 mg/dL (7-18); CALCIUM 8.8 mg/dL (8.5-10.1); CHLORIDE 103 mmol/L (98-107); CO2 26 mmol/L (21-32); CREATININE 0.9 mg/dL (0.7-1.3); GLUCOSE,RANDOM 108 mg/dL (74-106); POTASSIUM 3.5 mmol/L (3.5-5.1); SODIUM 138 mmol/L (136-145)
[2018-05-16] MEDS ORDERED: PIPERACILLIN/TAZOB 3.375 GM 3.375 GM in DEXTROSE 5%-WATER - 50 ML IVPB SCH (10:00)
--- NOTE | 2018-05-16 11:09 | PN ---
Physical Exam: SUBJECTIVE: Patient seen and examined at bedside. Passing gas. Watery BM this morning. Pain well-controlled with PO meds. Hungry. OBJECTIVE: Vital Signs Period Temp Pulse Resp BP Sys/Farfan Pulse Ox Last 24 Hr 97.9 F-102.4 F 11-111 16-20 108-143/60-81 99 GENERAL: The patient is awake, alert, and fully oriented, in no acute distress. LUNGS: Breath sounds equal, clear to auscultation bilaterally, no wheezes, no crackles, no accessory muscle use. HEART: Regular rate and rhythm, S1, S2 ABDOMEN: Soft, mildly distended, diffusely tender, hypoactive bowel sounds; gauze covering trochanter sites with scant sanguinous drainage; LOBO drain with ~ 25 serous drainage EXTREMITIES: 2+ pulses, warm, well-perfused, no edema. NEUROLOGICAL: Cranial nerves II through XII grossly intact. Normal speech, gait not observed. Laboratory Results - last 24 hr 05/16/18 05/16/18 07:15 07:15 WBC 15.1 H RBC 4.12 Hgb 11.9 Hct 36.1 MCV 87.4 MCH 28.8 MCHC 32.9 RDW 14.5 Plt Count 269 D MPV 8.0 Absolute Neuts (auto) 12.3 Neutrophils % 81.6 Lymphocytes % 10.8 Monocytes % 7.1 Eosinophils % 0.2 D Basophils % 0.3 Nucleated RBC % 0 Sodium 138 Potassium 3.5 Chloride 103 Carbon Dioxide 26 Anion Gap 9 BUN 9 Creatinine 0.9 Creat Clearance w eGFR > 60 Random Glucose 108 H Calcium 8.8 Active Medications Generic Name Dose Route Start Last Admin Trade Name Zahida PRN Reason Stop Dose Admin Acetaminophen 1,000 mg 05/14/18 18:28 05/15/18 00:55 Ofirmev Injection - IVPB 1,000 mg Q6H PRN Administration FEVER Acetaminophen 650 mg 05/14/18 18:29 05/16/18 10:20 Tylenol - PO 650 mg Q6H PRN Administration PAIN LEVEL 1 - 3 Albuterol Sulfate 2 puff 05/13/18 15:31 Ventolin Hfa Inhaler - IH Q6H PRN SHORT OF BREATH/WHEEZING Heparin Sodium (Porcine) 5,000 unit 05/14/18 15:28 05/16/18 10:21 Heparin - SQ 5,000 unit Q8H-IV PAUL Administration Sodium Chloride 1,000 mls @ 100 mls/hr 05/14/18 12:32 05/15/18 17:45 Normal Saline - IV 100 mls/hr ASDIR PAUL Administration Piperacillin Sod/Tazobactam 50 mls @ 100 mls/hr 05/15/18 19:00 05/16/18 10:57 Sod 3.375 gm/ Dextrose IVPB 100 mls/hr Q8H-IV PAUL Administration Protocol Ondansetron HCl 4 mg 05/13/18 15:44 Zofran Injection IVPUSH Q6H PRN NAUSEA Oxycodone HCl 5 mg 05/14/18 12:33 05/15/18 06:58 Roxicodone - PO 5 mg Q4H PRN Administration PAIN LEVEL 4 - 6 Oxycodone HCl 10 mg 05/14/18 17:09 05/16/18 10:20 Roxicodone - PO 10 mg Q4H PRN Administration PAIN LEVEL 7 - 10 ASSESSMENT/PLAN: 37 year-old male with no significant PMH admitted for acute appendicitis. Sepsis due to acute appendicitis, s/p lap appy 05/13 --Tm 101.5, leukocytosis persists --continue Zosyn --xray today again shows dilated colon, possible distal left obstruction; surgery aware --ID following Lactic acidosis --resolved Hypokalemia --resolved FEN Fluids: NS @ 100mL/hr Electrolytes: replete as indicated Nutrition: NPO DVT prophylaxis: subq heparin, oob, ambulation Dispo: continues to require inpatient care. Full code. Visit type - Emergency Visit Emergency Visit: Yes ED Registration Date: 05/13/18 Care time: The patient presented to the Emergency Department on the above date and was hospitalized for further evaluation of their emergent condition. - New Patient This patient is new to me today: Yes Date on this admission: 05/16/18 - Critical Care Critical Care patient: No
[2018-05-16] MEDS: SODIUM CHLORIDE 1,000 ML IV SCH ×2 (13:15→18:25)
--- NOTE | 2018-05-16 14:22 | PN ---
Progress Note, Physician History of Present Illness: still spiking fevers abd distension less less discomfort - Current Medication List Current Medications: Active Medications Acetaminophen (Ofirmev Injection -) 1,000 mg IVPB Q6H PRN PRN Reason: FEVER Last Admin: 05/15/18 00:55 Dose: 1,000 mg Acetaminophen (Tylenol -) 650 mg PO Q6H PRN PRN Reason: PAIN LEVEL 1 - 3 Last Admin: 05/16/18 10:20 Dose: 650 mg Albuterol Sulfate (Ventolin Hfa Inhaler -) 2 puff IH Q6H PRN PRN Reason: SHORT OF BREATH/WHEEZING Heparin Sodium (Porcine) (Heparin -) 5,000 unit SQ Q8H-IV PAUL Last Admin: 05/16/18 10:21 Dose: 5,000 unit Sodium Chloride (Normal Saline -) 1,000 mls @ 100 mls/hr IV ASDIR PAUL Last Admin: 05/16/18 13:15 Dose: Not Given Piperacillin Sod/Tazobactam (Sod 3.375 gm/ Dextrose) 50 mls @ 100 mls/hr IVPB Q8H-IV PAUL; Protocol Last Admin: 05/16/18 10:57 Dose: 100 mls/hr Morphine Sulfate (Morphine Sulfate) 4 mg IVPUSH Q4H PRN PRN Reason: PAIN LEVEL 6-10 Ondansetron HCl (Zofran Injection) 4 mg IVPUSH Q6H PRN PRN Reason: NAUSEA - Objective Vital Signs: Vital Signs Temperature 99.2 F 05/16/18 13:45 Pulse Rate 98 H 05/16/18 13:45 Respiratory Rate 18 05/16/18 13:45 Blood Pressure 122/76 05/16/18 13:45 O2 Sat by Pulse Oximetry (%) 97 05/16/18 10:00 Constitutional: Yes: Calm, Mild Distress Cardiovascular: Yes: Regular Rate and Rhythm Respiratory: Yes: Regular, CTA Bilaterally Gastrointestinal: Yes: Soft, Hypoactive Bowel Sounds Musculoskeletal: Yes: WNL Extremities: Yes: WNL Neurological: Yes: Alert, Oriented Psychiatric: Yes: Alert, Oriented Labs: CBC, BMP 05/16/18 07:15 05/16/18 07:15 INR, PTT INR 1.14 (0.82-1.09) 05/13/18 12:46 Assessment/Plan 1. Acute appendicitis 2. Lactic acidosis 3. Leukocytosis 4 fever plan continue abx still spiking fevers continue to monitor rest as per the team
[2018-05-16] MEDS: morphine SULFATE 4 MG/ML VIAL IVPUSH PRN ×2 (15:10→21:17)
[2018-05-16] MEDS: ACETAMINOPHEN 1000 MG/100 ML VIAL (NON FORMULARY) IVPB PRN (17:42)
[2018-05-17] MEDS ORDERED: DEXTROSE 5%-WATER - 50 ML IVPB ONE ×3 (02:03→17:33)
[2018-05-17] MEDS ORDERED: PIPERACILLIN/TAZOBACTAM 3.375 GM VIAL IVPB ONE ×3 (02:03→17:33)
[2018-05-17] MEDS: PIPERACILLIN/TAZOB 3.375 GM 3.375 GM in DEXTROSE 5%-WATER - 50 ML IVPB SCH ×3 (02:17→17:39)
[2018-05-17] MEDS: HEPARIN NA (PORCINE) 5,000 UNITS/ML 1ML VIAL SQ SCH ×3 (02:17→17:39)
[2018-05-17] MEDS: morphine SULFATE 4 MG/ML VIAL IVPUSH PRN ×3 (02:23→13:32)
[2018-05-17] MEDS: SODIUM CHLORIDE 1,000 ML IV SCH ×2 (05:09→13:34)
[2018-05-17 07:05] LABS: BASO % 0.3 % (0-2.0); EOS % 0.5 % (0-4.5); HEMATOCRIT 33.9 % (35.4-49); HEMOGLOBIN 11.5 GM/dL (11.7-16.9); LYMPH % 14.3 % (8-40); MCH 29.3 pg (25.7-33.7); MCHC 33.9 g/dl (32.0-35.9); MEAN CELL VOLUME 86.6 fl (80-96); MEAN PLT VOLUME 7.8 fl (7.5-11.1); NEUT % 76.9 % (42.8-82.8); PLATELET COUNT 278 K/MM3 (134-434); RBC 3.91 M/mm3 (4.00-5.60); RDW 14.2 % (11.9-15.9); WHITE BLOOD COUNT 12.5 K/mm3 (4.0-10.0)
[2018-05-17 07:26] LABS: ANION GAP 9 (8-16); BLOOD UREA NITROGEN 11 mg/dL (7-18); CALCIUM 8.2 mg/dL (8.5-10.1); CHLORIDE 103 mmol/L (98-107); CO2 25 mmol/L (21-32); GLUCOSE,RANDOM 105 mg/dL (74-106); MAGNESIUM 2.2 mg/dL (1.8-2.4); POTASSIUM 3.3 mmol/L (3.5-5.1); SODIUM 137 mmol/L (136-145)
[2018-05-17 07:31] LABS: ALK PHOS 59 U/L (45-117); BILIRUBIN,TOTAL 0.6 mg/dL (0.2-1.0); CREATININE 0.8 mg/dL (0.7-1.3); SGOT/AST 11 U/L (15-37); SGPT/ALT 20 U/L (12-78); TOT PROT 6.8 g/dl (6.4-8.2)
--- NOTE | 2018-05-17 12:40 | PATH ---
Surgical Pathology Report Patient Name: MIC ROBERTS [facility]. Rec. #: [id number] /Age/Gender: 1980 (Age: 37) / M Account: [id number] Location: [address] [place] [address]/[facility] Taken: 05/13/2018 Received: 05/15/2018 Reported: 05/17/2018 Physicians: Kalpesh Godwin MD Specimen(s) Received APPENDIX Clinical History Acute appendicitis Final Diagnosis APPENDIX, APPENDECTOMY: ACUTE APPENDICITIS AND PERIAPPENDICITIS. Electronically Signed Tatiana Noel M.D. Gross Description Received in formalin, labeled "appendix," is a 5 cm. in length vermiform appendix with a stapled margin of resection and moderate attached fat. The serosa is pratt-preciado with focal exudate. Sectioning reveals brown fecal material within the lumen. The wall of the appendix averages 0.1 cm. in thickness. Snout Puller sections are submitted in one cassette. /05/15/2018 saudi/05/15/2018
--- NOTE | 2018-05-17 12:44 | PN ---
Progress Note, Physician History of Present Illness: patient starting to improve still low grade fevers xray seen and results noted starting to have some gi function scatter air filled loops - Current Medication List Current Medications: Active Medications Acetaminophen (Ofirmev Injection -) 1,000 mg IVPB Q6H PRN PRN Reason: FEVER Last Admin: 05/16/18 17:42 Dose: 1,000 mg Acetaminophen (Tylenol -) 650 mg PO Q6H PRN PRN Reason: PAIN LEVEL 1 - 3 Last Admin: 05/16/18 10:20 Dose: 650 mg Albuterol Sulfate (Ventolin Hfa Inhaler -) 2 puff IH Q6H PRN PRN Reason: SHORT OF BREATH/WHEEZING Heparin Sodium (Porcine) (Heparin -) 5,000 unit SQ Q8H-IV PAUL Last Admin: 05/17/18 09:32 Dose: 5,000 unit Sodium Chloride (Normal Saline -) 1,000 mls @ 100 mls/hr IV ASDIR PAUL Last Admin: 05/17/18 05:09 Dose: 100 mls/hr Piperacillin Sod/Tazobactam (Sod 3.375 gm/ Dextrose) 50 mls @ 100 mls/hr IVPB Q8H-IV PAUL; Protocol Last Admin: 05/17/18 09:31 Dose: 100 mls/hr Morphine Sulfate (Morphine Sulfate) 4 mg IVPUSH Q4H PRN PRN Reason: PAIN LEVEL 6-10 Last Admin: 05/17/18 07:39 Dose: 4 mg Ondansetron HCl (Zofran Injection) 4 mg IVPUSH Q6H PRN PRN Reason: NAUSEA - Objective Vital Signs: Vital Signs Temperature 97.0 F L 05/17/18 10:00 Pulse Rate 69 05/17/18 10:00 Respiratory Rate 20 05/17/18 10:00 Blood Pressure 160/77 05/17/18 10:00 O2 Sat by Pulse Oximetry (%) 97 05/16/18 21:00 Constitutional: Yes: No Distress, Calm Cardiovascular: Yes: Regular Rate and Rhythm Respiratory: Yes: Regular, CTA Bilaterally Gastrointestinal: Yes: Soft, Distention, Hypoactive Bowel Sounds Musculoskeletal: Yes: WNL Extremities: Yes: WNL Wound/Incision: Yes: Clean/Dry Neurological: Yes: Alert, Oriented Psychiatric: Yes: Alert, Oriented Labs: CBC, BMP 05/17/18 06:00 05/17/18 06:00 INR, PTT INR 1.14 (0.82-1.09) 05/13/18 12:46 Assessment/Plan 1. Acute appendicitis 2. Lactic acidosis 3. Leukocytosis 4 fever plan continue abx fevers trending down continue to monitor still not opened up rest as per the team
--- NOTE | 2018-05-17 14:27 | PN ---
Physical Exam: SUBJECTIVE: Patient seen and examined at bedside. Passing gas, has had 5 semi- formed stools. Hungry. OBJECTIVE: Vital Signs Period Temp Pulse Resp BP Sys/Farfan Pulse Ox Last 24 Hr 97.0 F-101.5 F 69-103 16-20 117-160/62-83 97 GENERAL: The patient is awake, alert, and fully oriented, in no acute distress. LUNGS: Breath sounds equal, clear to auscultation bilaterally, no wheezes, no crackles, no accessory muscle use. HEART: Regular rate and rhythm, S1, S2 ABDOMEN: Soft, not distended, hypoactive bowel sounds on left, normoactive on right; gauze covering trochanter sites with scant sanguinous drainage; LOBO drain with ~10 thin, serous drainage EXTREMITIES: 2+ pulses, warm, well-perfused, no edema. NEUROLOGICAL: Cranial nerves II through XII grossly intact. Normal speech, gait not observed. Laboratory Results - last 24 hr 05/17/18 05/17/18 06:00 06:00 WBC 12.5 H RBC 3.91 L Hgb 11.5 L Hct 33.9 L MCV 86.6 MCH 29.3 MCHC 33.9 RDW 14.2 Plt Count 278 MPV 7.8 Absolute Neuts (auto) 9.6 Neutrophils % 76.9 Lymphocytes % 14.3 D Monocytes % 8.0 Eosinophils % 0.5 D Basophils % 0.3 Nucleated RBC % 0 Sodium 137 Potassium 3.3 L Chloride 103 Carbon Dioxide 25 Anion Gap 9 BUN 11 Creatinine 0.8 Creat Clearance w eGFR > 60 Random Glucose 105 Calcium 8.2 L Magnesium 2.2 Total Bilirubin 0.6 AST 11 L ALT 20 Alkaline Phosphatase 59 Total Protein 6.8 Albumin 3.0 L Active Medications Generic Name Dose Route Start Last Admin Trade Name Freq PRN Reason Stop Dose Admin Acetaminophen 1,000 mg 05/14/18 18:28 05/16/18 17:42 Ofirmev Injection - IVPB 1,000 mg Q6H PRN Administration FEVER Acetaminophen 650 mg 05/14/18 18:29 05/16/18 10:20 Tylenol - PO 650 mg Q6H PRN Administration PAIN LEVEL 1 - 3 Albuterol Sulfate 2 puff 05/13/18 15:31 Ventolin Hfa Inhaler - IH Q6H PRN SHORT OF BREATH/WHEEZING Heparin Sodium (Porcine) 5,000 unit 05/14/18 15:28 05/17/18 09:32 Heparin - SQ 5,000 unit Q8H-IV PAUL Administration Sodium Chloride 1,000 mls @ 100 mls/hr 05/14/18 12:32 05/17/18 13:34 Normal Saline - IV 100 mls/hr ASDIR PAUL Administration Piperacillin Sod/Tazobactam 50 mls @ 100 mls/hr 05/15/18 19:00 05/17/18 09:31 Sod 3.375 gm/ Dextrose IVPB 100 mls/hr Q8H-IV PAUL Administration Protocol Morphine Sulfate 4 mg 05/16/18 12:30 05/17/18 13:32 Morphine Sulfate IVPUSH 4 mg Q4H PRN Administration PAIN LEVEL 6-10 Ondansetron HCl 4 mg 05/13/18 15:44 Zofran Injection IVPUSH Q6H PRN NAUSEA ASSESSMENT/PLAN 37 year-old male with no significant PMH admitted for acute appendicitis. Sepsis due to acute appendicitis, s/p lap appy 05/13 --Tm 100.1, WBC trending down --continue Zosyn --ID following r/o distal left obstruction --05/17: xray today again shows dilated colon, possible distal left obstruction --passing flatus, 5 semi-formed stools in past 24 hours --no vomiting --surgery aware Lactic acidosis --resolved Hypokalemia --repleted FEN Fluids: NS @ 100mL/hr Electrolytes: replete as indicated Nutrition: NPO DVT prophylaxis: subq heparin, oob, ambulation Dispo: continues to require inpatient care. Full code. Visit type - Emergency Visit Emergency Visit: Yes ED Registration Date: 05/13/18 Care time: The patient presented to the Emergency Department on the above date and was hospitalized for further evaluation of their emergent condition. - New Patient This patient is new to me today: No - Critical Care Critical Care patient: No
[2018-05-17] MEDS ORDERED: oxyCODONE HCL 5 MG TABLET PO PRN (14:29)
[2018-05-17] MEDS: POTASSIUM CHLORIDE TABS 20 MEQ TABLET.ER (FP) PO SCH ×2 (16:07→21:29)
[2018-05-17] MEDS ORDERED: KETOROLAC TROMETHAMINE 30 MG/1 ML VIAL IVPUSH PRN (16:51)
[2018-05-18] MEDS ORDERED: DEXTROSE 5%-WATER - 50 ML IVPB ONE ×3 (01:34→16:38)
[2018-05-18] MEDS ORDERED: PIPERACILLIN/TAZOBACTAM 3.375 GM VIAL IVPB ONE ×3 (01:34→16:38)
[2018-05-18] MEDS: PIPERACILLIN/TAZOB 3.375 GM 3.375 GM in DEXTROSE 5%-WATER - 50 ML IVPB SCH ×3 (02:19→17:30)
[2018-05-18] MEDS: HEPARIN NA (PORCINE) 5,000 UNITS/ML 1ML VIAL SQ SCH ×3 (02:19→17:31)
[2018-05-18] MEDS: SODIUM CHLORIDE 1,000 ML IV SCH ×2 (04:23→13:00)
[2018-05-18 07:37] LABS: BASO % 0.5 % (0-2.0); EOS % 0.9 % (0-4.5); HEMOGLOBIN 11.2 GM/dL (11.7-16.9); LYMPH % 12.7 % (8-40); MCH 29.3 pg (25.7-33.7); MEAN CELL VOLUME 86.1 fl (80-96); MEAN PLT VOLUME 7.7 fl (7.5-11.1); MONO % 10.2 % (3.8-10.2); NEUT % 75.7 % (42.8-82.8); PLATELET COUNT 285 K/MM3 (134-434); RBC 3.83 M/mm3 (4.00-5.60); RDW 14.2 % (11.9-15.9)
[2018-05-18 08:06] LABS: ANION GAP 12 (8-16); BLOOD UREA NITROGEN 11 mg/dL (7-18); CALCIUM 8.5 mg/dL (8.5-10.1); CHLORIDE 103 mmol/L (98-107); CO2 22 mmol/L (21-32); CREATININE 0.7 mg/dL (0.7-1.3); GLUCOSE,RANDOM 94 mg/dL (74-106); MAGNESIUM 2.1 mg/dL (1.8-2.4); POTASSIUM 3.6 mmol/L (3.5-5.1); SODIUM 137 mmol/L (136-145)
--- NOTE | 2018-05-18 09:53 | PN ---
Progress Note (short form) - Note Progress Note: Attending Surgeon POD #5 No c/o; passing flatus and more formed bowel movements VSS AF; no temp spikes abdo-soft; flat and non tender; LOBO serous WBC-trending down IMP: improving PLAN: Trial of clear liquids and continue present tx. Kalpesh Godwin MD FACS
--- NOTE | 2018-05-18 14:53 | PN ---
Physical Exam: SUBJECTIVE: Patient seen and examined at bedside. Pain is minimal. Continues to pass flatus. BMs are still watery with bits of formed stool. OBJECTIVE: Vital Signs Period Temp Pulse Resp BP Sys/Farfan Pulse Ox Last 24 Hr 98.8 F-99.6 F 84-93 18-20 109-147/66-89 97 GENERAL: The patient is awake, alert, and fully oriented, in no acute distress. LUNGS: Breath sounds equal, clear to auscultation bilaterally, no wheezes, no crackles, no accessory muscle use. HEART: Regular rate and rhythm, S1, S2 ABDOMEN: Soft, not distended, normoactive bowel sounds; LOBO drain with ~10cc serous fluid; trochanter site edges well-approximated, no bleeding, no erythema , no warmth EXTREMITIES: 2+ pulses, warm, well-perfused, no edema. NEUROLOGICAL: Cranial nerves II through XII grossly intact. Normal speech Laboratory Results - last 24 hr 05/18/18 05/18/18 06:40 06:40 WBC 11.0 H RBC 3.83 L Hgb 11.2 L Hct 33.0 L MCV 86.1 MCH 29.3 MCHC 34.0 RDW 14.2 Plt Count 285 MPV 7.7 Absolute Neuts (auto) 8.3 Neutrophils % 75.7 Lymphocytes % 12.7 Monocytes % 10.2 Eosinophils % 0.9 Basophils % 0.5 Nucleated RBC % 0 Sodium 137 Potassium 3.6 Chloride 103 Carbon Dioxide 22 Anion Gap 12 BUN 11 Creatinine 0.7 Creat Clearance w eGFR > 60 Random Glucose 94 Calcium 8.5 Magnesium 2.1 Active Medications Generic Name Dose Route Start Last Admin Trade Name Zahida PRN Reason Stop Dose Admin Acetaminophen 650 mg 05/14/18 18:29 05/16/18 10:20 Tylenol - PO 650 mg Q6H PRN Administration PAIN LEVEL 1 - 3 Albuterol Sulfate 2 puff 05/13/18 15:31 Ventolin Hfa Inhaler - IH Q6H PRN SHORT OF BREATH/WHEEZING Heparin Sodium (Porcine) 5,000 unit 05/14/18 15:28 05/18/18 10:02 Heparin - SQ 5,000 unit Q8H-IV PAUL Administration Sodium Chloride 1,000 mls @ 100 mls/hr 05/14/18 12:32 05/18/18 04:23 Normal Saline - IV 100 mls/hr ASDIR PAUL Administration Piperacillin Sod/Tazobactam 50 mls @ 100 mls/hr 05/15/18 19:00 05/18/18 10:02 Sod 3.375 gm/ Dextrose IVPB 100 mls/hr Q8H-IV PAUL Administration Protocol Ketorolac Tromethamine 30 mg 05/17/18 16:51 Toradol Injection - IVPUSH 05/22/18 16:50 Q8H PRN PAIN LEVEL 1-5 Ondansetron HCl 4 mg 05/13/18 15:44 Zofran Injection IVPUSH Q6H PRN NAUSEA ASSESSMENT/PLAN 37 year-old male with no significant PMH admitted for acute appendicitis. Sepsis due to acute appendicitis, s/p lap appy 05/13 --afebrile >24 hours, WBC continues to trend down --continue Zosyn --ID following r/o distal left obstruction --05/17: xray shows dilated colon, possible distal left obstruction --passing flatus, watery stools --advanced to clears Lactic acidosis --resolved Hypokalemia --resolved FEN Fluids: NS @ 75 mL/hr Electrolytes: replete as indicated Nutrition: clears DVT prophylaxis: subq heparin, oob, ambulation Dispo: continues to require inpatient care. Full code. Visit type - Emergency Visit Emergency Visit: Yes ED Registration Date: 05/13/18 Care time: The patient presented to the Emergency Department on the above date and was hospitalized for further evaluation of their emergent condition. - New Patient This patient is new to me today: No - Critical Care Critical Care patient: No - Discharge Referral Referred to [facility] Med P.C.: No
--- NOTE | 2018-05-18 15:32 | PN ---
Progress Note, Physician History of Present Illness: stable still with distension has started on liquids improving wbc trending down - Current Medication List Current Medications: Active Medications Acetaminophen (Tylenol -) 650 mg PO Q6H PRN PRN Reason: PAIN LEVEL 1 - 3 Last Admin: 05/16/18 10:20 Dose: 650 mg Albuterol Sulfate (Ventolin Hfa Inhaler -) 2 puff IH Q6H PRN PRN Reason: SHORT OF BREATH/WHEEZING Heparin Sodium (Porcine) (Heparin -) 5,000 unit SQ Q8H-IV PAUL Last Admin: 05/18/18 10:02 Dose: 5,000 unit Sodium Chloride (Normal Saline -) 1,000 mls @ 100 mls/hr IV ASDIR PAUL Last Admin: 05/18/18 04:23 Dose: 100 mls/hr Piperacillin Sod/Tazobactam (Sod 3.375 gm/ Dextrose) 50 mls @ 100 mls/hr IVPB Q8H-IV PAUL; Protocol Last Admin: 05/18/18 10:02 Dose: 100 mls/hr Ketorolac Tromethamine (Toradol Injection -) 30 mg IVPUSH Q8H PRN PRN Reason: PAIN LEVEL 1-5 Stop: 05/22/18 16:50 Ondansetron HCl (Zofran Injection) 4 mg IVPUSH Q6H PRN PRN Reason: NAUSEA - Objective Vital Signs: Vital Signs Temperature 99.6 F 05/18/18 14:16 Pulse Rate 84 05/18/18 14:16 Respiratory Rate 18 05/18/18 14:16 Blood Pressure 127/79 05/18/18 14:16 O2 Sat by Pulse Oximetry (%) 97 05/17/18 21:00 Constitutional: Yes: No Distress, Calm Cardiovascular: Yes: Regular Rate and Rhythm Respiratory: Yes: Regular, CTA Bilaterally Gastrointestinal: Yes: Soft, Hypoactive Bowel Sounds Musculoskeletal: Yes: WNL Extremities: Yes: WNL Neurological: Yes: Alert, Oriented Psychiatric: Yes: Alert, Oriented Labs: CBC, BMP 05/18/18 06:40 05/18/18 06:40 INR, PTT INR 1.14 (0.82-1.09) 05/13/18 12:46 Assessment/Plan 1. Acute appendicitis 2. Lactic acidosis 3. Leukocytosis 4 fever plan continue abx fevers trending down continue to monitor see if patient tolerates rest as per the team
[2018-05-19] MEDS ORDERED: DEXTROSE 5%-WATER - 50 ML IVPB ONE ×2 (00:54→09:34)
[2018-05-19] MEDS ORDERED: PIPERACILLIN/TAZOBACTAM 3.375 GM VIAL IVPB ONE ×3 (00:54→16:00)
[2018-05-19] MEDS: HEPARIN NA (PORCINE) 5,000 UNITS/ML 1ML VIAL SQ SCH ×3 (01:58→17:46)
[2018-05-19] MEDS: PIPERACILLIN/TAZOB 3.375 GM 3.375 GM in DEXTROSE 5%-WATER - 50 ML IVPB SCH ×3 (01:58→17:45)
[2018-05-19] MEDS: SODIUM CHLORIDE 1,000 ML IV SCH ×2 (01:58→13:05)
[2018-05-19 07:20] LABS: BASO % 0.6 % (0-2.0); EOS % 1.5 % (0-4.5); HEMATOCRIT 34.9 % (35.4-49); HEMOGLOBIN 11.9 GM/dL (11.7-16.9); LYMPH % 15.6 % (8-40); MCH 29.4 pg (25.7-33.7); MCHC 34.1 g/dl (32.0-35.9); MEAN CELL VOLUME 86.2 fl (80-96); MEAN PLT VOLUME 7.7 fl (7.5-11.1); MONO % 10.5 % (3.8-10.2); NEUT % 71.8 % (42.8-82.8); PLATELET COUNT 336 K/MM3 (134-434); RBC 4.05 M/mm3 (4.00-5.60); RDW 14.3 % (11.9-15.9); WHITE BLOOD COUNT 11.6 K/mm3 (4.0-10.0)
[2018-05-19 08:18] LABS: ALK PHOS 64 U/L (45-117); ANION GAP 12 (8-16); BILIRUBIN,TOTAL 0.7 mg/dL (0.2-1.0); BLOOD UREA NITROGEN 9 mg/dL (7-18); CALCIUM 8.4 mg/dL (8.5-10.1); CHLORIDE 105 mmol/L (98-107); CO2 24 mmol/L (21-32); CREATININE 0.8 mg/dL (0.7-1.3); GLUCOSE,RANDOM 109 mg/dL (74-106); MAGNESIUM 2.2 mg/dL (1.8-2.4); POTASSIUM 3.7 mmol/L (3.5-5.1); SGOT/AST 31 U/L (15-37); SGPT/ALT 46 U/L (12-78); SODIUM 141 mmol/L (136-145); TOT PROT 6.9 g/dl (6.4-8.2)
--- NOTE | 2018-05-19 12:56 | PN ---
Physical Exam: SUBJECTIVE: Patient seen and examined. Wants to eat. Passing flatus, BMs still watery. OBJECTIVE: Vital Signs Period Temp Pulse Resp BP Sys/Farfan Pulse Ox Last 24 Hr 98.5 F-99.9 F 81-90 18-20 124-133/64-81 98 GENERAL: The patient is awake, alert, and fully oriented, in no acute distress. LUNGS: Breath sounds equal, clear to auscultation bilaterally, no wheezes, no crackles, no accessory muscle use. HEART: Regular rate and rhythm, S1, S2 ABDOMEN: Soft, not distended, normoactive bowel sounds; LOBO drain with ~10cc seropurulent fluid; trochanter site edges well-approximated, no bleeding, no erythema, no warmth EXTREMITIES: 2+ pulses, warm, well-perfused, no edema. NEUROLOGICAL: Cranial nerves II through XII grossly intact. Normal speech Laboratory Results - last 24 hr 05/19/18 05/19/18 06:30 06:30 WBC 11.6 H RBC 4.05 Hgb 11.9 Hct 34.9 L MCV 86.2 MCH 29.4 MCHC 34.1 RDW 14.3 Plt Count 336 MPV 7.7 Absolute Neuts (auto) 8.3 Neutrophils % 71.8 Lymphocytes % 15.6 D Monocytes % 10.5 H Eosinophils % 1.5 Basophils % 0.6 Nucleated RBC % 0 Sodium 141 Potassium 3.7 Chloride 105 Carbon Dioxide 24 Anion Gap 12 BUN 9 Creatinine 0.8 Creat Clearance w eGFR > 60 Random Glucose 109 H Calcium 8.4 L Magnesium 2.2 Total Bilirubin 0.7 AST 31 D ALT 46 D Alkaline Phosphatase 64 Total Protein 6.9 Albumin 3.0 L Active Medications Generic Name Dose Route Start Last Admin Trade Name Freq PRN Reason Stop Dose Admin Acetaminophen 650 mg 05/14/18 18:29 05/16/18 10:20 Tylenol - PO 650 mg Q6H PRN Administration PAIN LEVEL 1 - 3 Albuterol Sulfate 2 puff 05/13/18 15:31 Ventolin Hfa Inhaler - IH Q6H PRN SHORT OF BREATH/WHEEZING Heparin Sodium (Porcine) 5,000 unit 05/14/18 15:28 05/19/18 09:52 Heparin - SQ 5,000 unit Q8H-IV PAUL Administration Sodium Chloride 1,000 mls @ 100 mls/hr 05/14/18 12:32 05/19/18 01:58 Normal Saline - IV 100 mls/hr ASDIR PAUL Administration Piperacillin Sod/Tazobactam 50 mls @ 100 mls/hr 05/15/18 19:00 05/19/18 09:52 Sod 3.375 gm/ Dextrose IVPB 100 mls/hr Q8H-IV PAUL Administration Protocol Ketorolac Tromethamine 30 mg 05/17/18 16:51 Toradol Injection - IVPUSH 05/22/18 16:50 Q8H PRN PAIN LEVEL 1-5 Ondansetron HCl 4 mg 05/13/18 15:44 Zofran Injection IVPUSH Q6H PRN NAUSEA ASSESSMENT/PLAN 37 year-old male with no significant PMH admitted for acute appendicitis. Sepsis due to acute appendicitis, s/p lap appy 05/13 --afebrile >24 hours, WBC 11.6k --continue Zosyn --ID following r/o distal left obstruction --today's abdominal xray improved --passing flatus, watery stools --advanced to full liquids Lactic acidosis --resolved Hypokalemia --resolved FEN Fluids: PO intake adequate Electrolytes: replete as indicated Nutrition: full liquids DVT prophylaxis: subq heparin, oob, ambulation Dispo: continues to require inpatient care. Full code. Visit type - Emergency Visit Emergency Visit: Yes ED Registration Date: 05/13/18 Care time: The patient presented to the Emergency Department on the above date and was hospitalized for further evaluation of their emergent condition. - New Patient This patient is new to me today: No - Critical Care Critical Care patient: No
--- NOTE | 2018-05-19 13:16 | PN ---
Progress Note, Physician History of Present Illness: starting to feel better abd distension decreasing flatus started still with some discomfort - Current Medication List Current Medications: Active Medications Acetaminophen (Tylenol -) 650 mg PO Q6H PRN PRN Reason: PAIN LEVEL 1 - 3 Last Admin: 05/16/18 10:20 Dose: 650 mg Albuterol Sulfate (Ventolin Hfa Inhaler -) 2 puff IH Q6H PRN PRN Reason: SHORT OF BREATH/WHEEZING Heparin Sodium (Porcine) (Heparin -) 5,000 unit SQ Q8H-IV PAUL Last Admin: 05/19/18 09:52 Dose: 5,000 unit Piperacillin Sod/Tazobactam (Sod 3.375 gm/ Dextrose) 50 mls @ 100 mls/hr IVPB Q8H-IV PAUL; Protocol Last Admin: 05/19/18 09:52 Dose: 100 mls/hr Ketorolac Tromethamine (Toradol Injection -) 30 mg IVPUSH Q8H PRN PRN Reason: PAIN LEVEL 1-5 Stop: 05/22/18 16:50 Ondansetron HCl (Zofran Injection) 4 mg IVPUSH Q6H PRN PRN Reason: NAUSEA - Objective Vital Signs: Vital Signs Temperature 100.1 F H 05/19/18 13:07 Pulse Rate 89 05/19/18 13:07 Respiratory Rate 17 05/19/18 13:07 Blood Pressure 123/80 05/19/18 13:07 O2 Sat by Pulse Oximetry (%) 98 05/19/18 09:00 Constitutional: Yes: Calm, Mild Distress Cardiovascular: Yes: Regular Rate and Rhythm Respiratory: Yes: Regular, CTA Bilaterally Gastrointestinal: Yes: Soft, Hypoactive Bowel Sounds, Tenderness Musculoskeletal: Yes: WNL Extremities: Yes: WNL Neurological: Yes: Alert, Oriented Psychiatric: Yes: Alert, Oriented Labs: CBC, BMP 05/19/18 06:30 05/19/18 06:30 INR, PTT INR 1.14 (0.82-1.09) 05/13/18 12:46 Assessment/Plan 1. Acute appendicitis 2. Lactic acidosis 3. Leukocytosis 4 fever plan continue abx fevers trending down continue to monitor see if patient tolerates rest as per the team wbc still on the higher side
[2018-05-19] MEDS: LACTOBACILLUS ACIDOPHILUS 1 TABLET PO SCH (16:11)
[2018-05-20] MEDS ORDERED: PIPERACILLIN/TAZOBACTAM 3.375 GM VIAL IVPB ONE ×2 (01:15→10:10)
[2018-05-20] MEDS ORDERED: DEXTROSE 5%-WATER - 50 ML IVPB ONE ×2 (01:15→10:10)
[2018-05-20] MEDS: HEPARIN NA (PORCINE) 5,000 UNITS/ML 1ML VIAL SQ SCH ×2 (01:53→10:38)
[2018-05-20] MEDS: PIPERACILLIN/TAZOB 3.375 GM 3.375 GM in DEXTROSE 5%-WATER - 50 ML IVPB SCH ×2 (01:53→10:39)
--- NOTE | 2018-05-20 05:16 | PN ---
Progress Note, Physician Chief Complaint: Abdominal pain History of Present Illness: 37 yo male with PMH alcohol dependence, pre diabetes, asthma who presented to the ED with abdominal pain and vomiting. He reports diarrhea is resolved. having normal bowel movements and passing flatus. Abdominal pain is managable and tolerating diet. He reports minor skeletal aches and pains. - Current Medication List Current Medications: Active Medications Acetaminophen (Tylenol -) 650 mg PO Q6H PRN PRN Reason: PAIN LEVEL 1 - 3 Last Admin: 05/16/18 10:20 Dose: 650 mg Albuterol Sulfate (Ventolin Hfa Inhaler -) 2 puff IH Q6H PRN PRN Reason: SHORT OF BREATH/WHEEZING Heparin Sodium (Porcine) (Heparin -) 5,000 unit SQ Q8H-IV PAUL Last Admin: 05/20/18 01:53 Dose: 5,000 unit Piperacillin Sod/Tazobactam (Sod 3.375 gm/ Dextrose) 50 mls @ 100 mls/hr IVPB Q8H-IV PAUL; Protocol Last Admin: 05/20/18 01:53 Dose: 100 mls/hr Ketorolac Tromethamine (Toradol Injection -) 30 mg IVPUSH Q8H PRN PRN Reason: PAIN LEVEL 1-5 Stop: 05/22/18 16:50 Lactobacillus Acidophilus (Bacid -) 1 tab PO DAILY PAUL Last Admin: 05/19/18 16:11 Dose: 1 tab Ondansetron HCl (Zofran Injection) 4 mg IVPUSH Q6H PRN PRN Reason: NAUSEA - Objective Vital Signs: Vital Signs Temperature 98.7 F 05/20/18 02:00 Pulse Rate 78 05/20/18 02:00 Respiratory Rate 18 05/20/18 02:00 Blood Pressure 128/64 05/20/18 02:00 O2 Sat by Pulse Oximetry (%) 98 05/19/18 21:00 Vital Signs Period Temp Pulse Resp BP Sys/Farfan Pulse Ox Last 24 Hr 98.0 F-100.1 F 78-89 17-18 105-136/64-82 98 Intake & Output 05/19/18 05/20/18 05/20/18 23:59 07:59 15:59 Intake Total 1050 50 480 Output Total 10 10 Balance 1040 40 480 Weight 179 lb 0.6 oz Intake: IV 1000 Normal Saline - 1,000 ml 1000 @ 100 mls/hr IV ASDIR PAUL Rx#:[id number] IVPB 50 50 Oral 480 Output: Drainage 10 10 Left Abdomen 10 10 Other: Voiding Method Toilet Toilet Toilet # Unmeasured Voids Void 1 1 Bowel Movement Yes No # Bowel Movements 1 Weight Measurement Method Standing Scale Constitutional: Yes: Well Nourished, No Distress, Calm Eyes: Yes: Conjunctiva Clear, EOM Intact HENT: Yes: Atraumatic, Normocephalic Neck: Yes: Supple, Trachea Midline Cardiovascular: Yes: Regular Rate and Rhythm, S1, S2 Respiratory: Yes: Regular, CTA Bilaterally Gastrointestinal: Yes: Normal Bowel Sounds, Soft, Other (LLQ drain, serous output). No: Tenderness, Tenderness, Epigastrium Genitourinary: No: CVA Tenderness - Left, CVA Tenderness - Right Extremities: No: Cool, Cyanosis Edema: No Peripheral Pulses WNL: Yes Peripheral Pulses: Left Doralis Pedis: 2+, Right Dorsalis Pedis: 2+ Integumentary: No: Jaundice Wound/Incision: Yes: Clean/Dry, Well Approximated, Steri Strips, Open to air Neurological: Yes: Alert, Oriented Psychiatric: Yes: Alert, Oriented Labs: CBC, BMP 05/19/18 06:30 05/19/18 06:30 INR, PTT INR 1.14 (0.82-1.09) 05/13/18 12:46 Problem List - Problems (1) Postoperative ileus Assessment/Plan: 37 yo male POD#7 s/p laparoscopic appendectomy, resolved postoperative ileus, tolerating diet, ambulating, passing usual BM and flatus, no more diarrhea. low grade temp 100. Reported feeling much better. encouraged probiotic LOBO Teaching Augmentin PO per ID Discharge planning f/u in 1 week to [address] Godwin Code(s): K91.89 - OTH POSTPROCEDURAL COMPLICATIONS AND DISORDERS OF DGSTV SYS; K56.7 - ILEUS, UNSPECIFIED (2) Appendicitis Code(s): K37 - UNSPECIFIED APPENDICITIS Qualifiers: Appendicitis type: acute appendicitis (3) EtOH dependence Code(s): F10.20 - ALCOHOL DEPENDENCE, UNCOMPLICATED (4) Bronchial asthma Code(s): J45.909 - UNSPECIFIED ASTHMA, UNCOMPLICATED Qualifiers: Asthma severity: mild (5) Depression Code(s): F32.9 - MAJOR DEPRESSIVE DISORDER, SINGLE EPISODE, UNSPECIFIED Qualifiers: Depression Type: unspecified Qualified Code(s): F32.9 - Major depressive disorder, single episode, unspecified
--- NOTE | 2018-05-20 10:15 | PN ---
Physical Exam: SUBJECTIVE: Patient seen and examined OBJECTIVE: Vital Signs Period Temp Pulse Resp BP Sys/Farfan Pulse Ox Last 24 Hr 98.1 F-100.1 F 78-89 17-18 111-136/64-82 98 GENERAL: The patient is awake, alert, and fully oriented, in no acute distress. HEAD: Normal with no signs of trauma. EYES: PERRL, extraocular movements intact, sclera anicteric, conjunctiva clear. No ptosis. ENT: Ears normal, nares patent, oropharynx clear without exudates, moist mucous membranes. NECK: Trachea midline, full range of motion, supple. LUNGS: Breath sounds equal, clear to auscultation bilaterally, no wheezes, no crackles, no accessory muscle use. HEART: Regular rate and rhythm, S1, S2 without murmur, rub or gallop. ABDOMEN: Soft, nontender, nondistended, normoactive bowel sounds, no guarding, no rebound, no hepatosplenomegaly, no masses. EXTREMITIES: 2+ pulses, warm, well-perfused, no edema. NEUROLOGICAL: Cranial nerves II through XII grossly intact. Normal speech, gait not observed. PSYCH: Normal mood, normal affect. SKIN: Warm, dry, normal turgor, no rashes or lesions noted Active Medications Generic Name Dose Route Start Last Admin Trade Name Freq PRN Reason Stop Dose Admin Acetaminophen 650 mg 05/14/18 18:29 05/16/18 10:20 Tylenol - PO 650 mg Q6H PRN Administration PAIN LEVEL 1 - 3 Albuterol Sulfate 2 puff 05/13/18 15:31 Ventolin Hfa Inhaler - IH Q6H PRN SHORT OF BREATH/WHEEZING Heparin Sodium (Porcine) 5,000 unit 05/14/18 15:28 05/20/18 01:53 Heparin - SQ 5,000 unit Q8H-IV PAUL Administration Piperacillin Sod/Tazobactam 50 mls @ 100 mls/hr 05/15/18 19:00 05/20/18 01:53 Sod 3.375 gm/ Dextrose IVPB 100 mls/hr Q8H-IV PAUL Administration Protocol Ketorolac Tromethamine 30 mg 05/17/18 16:51 Toradol Injection - IVPUSH 05/22/18 16:50 Q8H PRN PAIN LEVEL 1-5 Lactobacillus Acidophilus 1 tab 05/19/18 15:45 05/19/18 16:11 Bacid - PO 1 tab DAILY PAUL Administration Ondansetron HCl 4 mg 05/13/18 15:44 Zofran Injection IVPUSH Q6H PRN NAUSEA ASSESSMENT/PLAN:
[2018-05-20 10:32] VITALS: BP 105/70; PULSE 88; TEMP 98
[2018-05-20] MEDS: LACTOBACILLUS ACIDOPHILUS 1 TABLET PO SCH (10:39)
--- NOTE | 2018-05-20 14:52 | DS ---
Physical Exam: SUBJECTIVE: Patient seen and examined OBJECTIVE: Vital Signs Period Temp Pulse Resp BP Sys/Farfan Pulse Ox Last 24 Hr 98.0 F-99.0 F 78-88 18-18 105-136/64-82 98-100 PHYSICAL EXAM GENERAL: The patient is awake, alert, and fully oriented, in no acute distress. HEAD: Normal with no signs of trauma. EYES: PERRL, extraocular movements intact, sclera anicteric, conjunctiva clear. ENT: Ears normal, nares patent, oropharynx clear without exudates, moist mucous membranes. NECK: Trachea midline, full range of motion, supple. LUNGS: Breath sounds equal, clear to auscultation bilaterally, no wheezes, no crackles, no accessory muscle use. HEART: Regular rate and rhythm, S1, S2 without murmur, rub or gallop. ABDOMEN: Soft, nontender, nondistended, normoactive bowel sounds, no guarding, no rebound, no hepatosplenomegaly, no masses. EXTREMITIES: 2+ pulses, warm, well-perfused, no edema. NEUROLOGICAL: Cranial nerves II through XII grossly intact. Normal speech, gait not observed. PSYCH: Normal mood, normal affect. SKIN: Warm, dry, normal turgor, no rashes or lesions noted. LABS HOSPITAL COURSE: Date of Admission:05/13/18 Date of Discharge: 05/20/18 Minutes to complete discharge: 35 Discharge Summary Reason For Visit: APPENDICITIS Condition: Improved - Instructions Diet, Activity, Other Instructions: Dr. Godwin Discharge Instructions Dear MIC ROBERTS, Post Operative Instructions Physical activity Resume your normal everyday activity as tolerated no heavy lifting or exercise until seen by your surgeon. You may walk unlimited amounts of and climb stairs. You may resume driving the car when you feel safe and comfortable behind the wheel. Wound care If you have a bandage, leave it on, and keep dry for 48 - 72 hours. After that time discard the outer bandage. If there are tapes on the skin under the outer bandage, leave them in place. They will peel off in the next 7 to 10 days. Do Not peel them off. You may shower 2 days after surgery. If there are tapes present on the skin, they can get wet. Diet There are no dietary restrictions. Eat healthy, high-fiber foods. Drink 6 to 8 glasses of liquid each day. This will assist in keeping your bowels are regular. Pain management You may take Tylenol or acetaminophen or Ibuprofen (for example, Motrin, Advil etc.) Any pain prescription medication ordered should be taken as prescribed for moderate to severe pain. Call Dr. Godwin for any of the following: Severe pain not relieved by medication Fever of 101 or higher Excessive bleeding or drainage on dressing Inability to urinate Call the office at [phone] for a post operative appointment on May 23. Referrals: Kalpesh Godwin MD [Staff Physician] - Disposition: HOME - Home Medications Comprehensive Discharge Medication List: Ambulatory Orders Amoxicillin/Potassium Clav [Augmentin 875-125 Tablet] 1 each PO BID #14 tablet 05/20/18 This patient is new to me today: No Emergency Visit: No Critical Care patient: No - Discharge Referral Referred to [facility] Med P.C.: No
== END 2018-05-20 14:30 | disposition home or self-care (01) | DRG 710 ==
LOC: JER 06:58 → JERBED 11:46 → UNDOADMIN 11:46 → JASUSAT 13:48 → SUATTDRO 13:48 → J5S 18:11 → JASUSAT 18:12 → J5S 18:12
PROVIDERS: ADMIT Hospitalist; ATTEND Nurse Practitioner Acute Care
PROC: 0DTJ4ZZ Resection of Appendix, Percutaneous Endoscopic Approach (ICD-10-PCS; principal; 2018-05-13 13:38)
DX: A41.9 Sepsis, unspecified organism (principal); K35.80 Unspecified acute appendicitis; E87.2 Acidosis; D72.829 Elevated white blood cell count, unspecified; K91.89 Other postprocedural complications and disorders of digestive system; K56.7 Ileus, unspecified; Y83.9 Surgical procedure, unspecified as the cause of abnormal reaction of the patient, or of later complication, without mention of misadventure at the time of the procedure; F10.20 Alcohol dependence, uncomplicated; F32.9 Major depressive disorder, single episode, unspecified; J45.909 Unspecified asthma, uncomplicated; R50.9 Fever, unspecified; E87.6 Hypokalemia; R10.9 Unspecified abdominal pain
CPT/HCPCS: 36415; 71045-TC-FY; 74019-TC-FY; 74176; 80048; 80053; 80307; 81003; 83605; 83690; 83735; 84100; 85025; 85610; 85730; 86850; 86900; 86901; 87040; 87324; 87449; 88304-TC; 93005; 93010; 94010; 94760; 99283-25; J0131; J1644; J7030

== ENCOUNTER 2018-07-31 17:48 | Inpatient (IN) | payer OTHER ==
[2018-07-31 18:02] VITALS: BMI 25.8
--- NOTE | 2018-07-31 20:18 | HP ---
CIWA Score - CIWA Score Nausea/Vomitin Muscle Tremors: 3 Anxiety: 3 Agitation: 1-Slight > Activity Paroxysmal Sweats: 2 Orientation: 1-Uncertain about Date (no distress) Tacttile Disturbances: 1-Very Mild Itch/Numbness Auditory Disturbances: 0-None Visual Disturbances: 0-None Headache: 0-None Present CIWA-Ar Total Score: 13 Admission ROS BHS - HPI Chief Complaint: "I need a drink to control the shakes" alcohol withdrawal symptoms Allergies/Adverse Reactions: Allergies Allergy/AdvReac Type Severity Reaction Status Date / Time No Known Allergies Allergy Verified 07/31/18 18:23 History of Present Illness: 37 yo male with hx of alcohol dependence is here seeking detox, this is one of multiple admissions. Last detox [facility] 04/20/18. Longest period of sobriety 2 years. PMHX: Asthma and depression. Denies hx of seizures or blackouts. Denies suicidal / homicidal ideation Exam Limitations: No Limitations - Ebola screening Have you traveled outside of the country in the last 21 days: No (N) Have you had contact with anyone from an Ebola affected area: No Have you been sick,other than usual withdrawal symptoms: No Do you have a fever: No - Review of Systems Constitutional: Chills, Loss of Appetite, Changes in sleep EENT: reports: No Symptoms Reported Respiratory: reports: No Symptoms reported Cardiac: reports: No Symptoms Reported GI: reports: Poor Appetite, Poor Fluid Intake : reports: No Symptoms Reported Musculoskeletal: reports: No Symptoms Reported Integumentary: reports: No Symptoms Reported Neuro: reports: Tremors Endocrine: reports: Increased Thirst Hematology: reports: No Symptoms Reported Psychiatric: reports: Orientated x3, Anxious Other Systems: Reviewed and Negative Patient History - Patient Medical History Hx Anemia: No Hx Asthma: Yes Hx Chronic Obstructive Pulmonary Disease (COPD): No Hx Cancer: No Hx Cardiac Disorders: No Hx Congestive Heart Failure: No Hx Hypertension: No Hx Hypercholesterolemia: No Hx Pacemaker: No HX Cerebrovascular Accident: No Hx Seizures: No Hx Dementia: No Hx Diabetes: No Hx Gastrointestinal Disorders: No Hx Liver Disease: No Hx Genitourinary Disorders: No Hx Sexually Transmitted Disorders: No Hx Renal Disease (ESRD): No Hx Thyroid Disease: No Hx Human Immunodeficiency Virus (HIV): No (Negative 2013) Hx Hepatitis C: No Hx Depression: Yes (Not on medication) Hx Suicide Attempt: No Hx Bipolar Disorder: No Hx Schizophrenia: No - Patient Surgical History Past Surgical History: No Hx Neurologic Surgery: No Hx Cataract Extraction: No Hx Cardiac Surgery: No Hx Lung Surgery: No Hx Breast Surgery: No Hx Breast Biopsy: No Hx Abdominal Surgery: No Hx Appendectomy: No Hx Cholecystectomy: No Hx Genitourinary Surgery: No Hx Section: No Hx Orthopedic Surgery: No Anesthesia Reaction: No - PPD History Previous Implant?: No (NEG 04/2018) Documented Results: Negative w/proof Implanted On Prior [facility] Admission?: No PPD to be Administered?: No - Smoking Cessation Smoking history: Never smoked Have you smoked in the past 12 months: No Hx Chewing Tobacco Use: No Initiated information on smoking cessation: No - Substance & Tx. History Hx Alcohol Use: Yes Hx Substance Use: Yes Substance Use Type: Alcohol Hx Substance Use Treatment: Yes ([facility] 04/20/18) - Substances Abused Alcohol Route: Oral Frequency: 1-2 times per week Amount used: 3 BOTTLE Age of first use: 16 Date of Last Use: 07/31/18 Family Disease History - Family Disease History Family Disease History: CA: Mother (Breast Ca- ) Admission Physical Exam S - Vital Signs Vital Signs: Vital Signs - 24 hr 07/31/18 17:59 Temperature 97.7 F Pulse Rate 110 H Respiratory 18 Rate Blood Pressure 145/75 - Physical General Appearance: Yes: Disheveled, Mild Distress, Alcohol on Breath, Sweating , Anxious HEENTM: Yes: EOMI, Hearing grossly Normal, Normal ENT Inspection, Normocephalic , Normal Voice, CHRIST, Pharynx Normal, Tm's normal, Other (cheilithis) Respiratory: Yes: Chest Non-Tender, Lungs Clear, Normal Breath Sounds, No Respiratory Distress, No Accessory Muscle Use Neck: Yes: Within Normal Limits Breast: Yes: Breast Exam Deferred Cardiology: Yes: Regular Rhythm, Tachycardia Abdominal: Yes: Normal Bowel Sounds, Non Tender, Flat, Soft Genitourinary: Yes: Within Normal Limits Back: Yes: Normal Inspection Musculoskeletal: Yes: full range of Motion, Gait Steady, Pelvis Stable Extremities: Yes: Normal Capillary Refill, Normal Inspection, Normal Range of Motion, Non-Tender Neurological: Yes: labor specialist II-XII NML intact, Fully Oriented, Alert, Motor Strength 5/5, Depressed Affect Integumentary: Yes: Normal Color, Warm, Clammy Lymphatic: Yes: Within Normal Limits - Diagnostic (1) Alcohol dependence with uncomplicated withdrawal Current Visit: Yes Status: Chronic (2) Depression Current Visit: Yes Status: Suspected Qualifiers: Depression Type: unspecified Qualified Code(s): F32.9 - Major depressive disorder, single episode, unspecified (3) Bronchial asthma Current Visit: Yes Status: Chronic Qualifiers: Asthma severity: mild Cleared for Admission S - Detox or Rehab [facility] Level of Care: Medically Managed Detox Regimen/Protocol: Valium S Breath Alcohol Content Breath Alcohol Content: 0.330 Urine Drug Screen - Results Drug Screen Negative: Yes
[2018-07-31] MEDS ORDERED: LOPERAMIDE HCL 2 MG CAPSULE PO PRN (20:27)
[2018-07-31] MEDS ORDERED: MAG HYDROX/AL HYDROX/SIMETH 30 ML UNIT-DOSE CUP PO PRN (20:27)
[2018-07-31] MEDS ORDERED: guaiFENesin/D-METHORPHAN HB 10 ML UNIT-DOSE CUPS PO PRN (20:27)
[2018-07-31] MEDS ORDERED: MENTHOL/PHENOL 1 EACH UD MM PRN (20:27)
[2018-07-31] MEDS ORDERED: diazePAM 5 MG TABLET PO ONE (20:27)
[2018-07-31] MEDS ORDERED: MAGNESIUM CITRATE 300 ML BOTTLE PO PRN (20:27)
[2018-07-31] MEDS ORDERED: P-EPHED 60MG/TRIPROLIDI 2.5MG TABLET PO PRN (20:27)
[2018-07-31] MEDS ORDERED: ACETAMINOPHEN 325 MG TABLET (FP) PO PRN (20:27)
[2018-07-31] MEDS ORDERED: IBUPROFEN 400 MG TABLET (FP) PO PRN (20:27)
[2018-07-31] MEDS ORDERED: MAGNESIUM HYDROX 2400MG/30ML ORAL SUSPENSION 30 ML CUP PO PRN (20:27)
[2018-07-31] MEDS: diazePAM 5 MG TABLET PO SCH (22:31)
[2018-07-31] MEDS: THIAMINE HCL 100 MG TABLET (FP) PO SCH (22:31)
[2018-07-31 23:53] LABS: URINE APPEARANCE CLEAR; URINE BILIRUBIN NEGATIVE (<2.0 mg/dL); URINE COLOR COLORLESS; URINE GLUCOSE (UA) NEGATIVE (NEGATIVE); URINE KETONE NEGATIVE (NEGATIVE); URINE LEUK ESTERASE NEGATIVE (NEGATIVE); URINE NITRITE NEGATIVE (NEGATIVE); URINE PROTEIN NEGATIVE (NEGATIVE); URINE UROBILINOGEN NEGATIVE mg/dL (0.2-1.0)
[2018-08-01] MEDS: diazePAM 5 MG TABLET PO PRN ×3 (00:29→18:59)
[2018-08-01] MEDS: MELATONIN 5 MG TABLETS PO PRN ×2 (00:37→22:20)
[2018-08-01] MEDS: diazePAM 5 MG TABLET PO SCH ×3 (05:27→22:20)
[2018-08-01] MEDS: hydrOXYzine PAMOATE 25 MG CAPSULE (FP) PO PRN (08:44)
--- NOTE | 2018-08-01 10:08 | PN ---
S CIWA - CIWA Score Nausea/Vomitin-No Nausea/No Vomiting Muscle Tremors: 4-Moderate,w/Arms Extend Anxiety: 3 Agitation: 3 Paroxysmal Sweats: 3 Orientation: 0-Oriented Tacttile Disturbances: 0-None Auditory Disturbances: 0-None Visual Disturbances: 0-None Headache: 1-Very Mild CIWA-Ar Total Score: 14 BHS Progress Note (SOAP) Subjective: sweats shakes interrupted sleep body aches headache Objective: 08/01/18 10:07 Vital Signs Temperature 99.7 F H 08/01/18 09:45 Pulse Rate 91 H 08/01/18 09:45 Respiratory Rate 20 08/01/18 09:45 Blood Pressure 123/76 08/01/18 09:45 O2 Sat by Pulse Oximetry (%) Laboratory Tests 07/31/18 22:43 Urine Color Colorless Urine Appearance Clear Urine pH 6.0 Ur Specific [place] 1.003 L Urine Protein Negative Urine Glucose (UA) Negative Urine Ketones Negative Urine Blood 1+ H Urine Nitrite Negative Urine Bilirubin Negative Urine Urobilinogen Negative Ur Leukocyte Esterase Negative Urine WBC (Auto) <1 Urine RBC (Auto) None rest of labs pending aaox3 ambulating no acute distress Assessment: 08/01/18 10:07 withdrawal sx Plan: continue detox increase fluids pending labs
[2018-08-01] MEDS: PRENATAL VITAMINS W/ FOLIC ACID TABLET (FP) PO SCH (10:41)
[2018-08-01 11:13] LABS: HEMATOCRIT 37.8 % (35.4-49); HEMOGLOBIN 12.1 GM/dL (11.7-16.9); MCH 26.6 pg (25.7-33.7); MEAN CELL VOLUME 83.1 fl (80-96); MEAN PLT VOLUME 7.4 fl (7.5-11.1); PLATELET COUNT 279 K/MM3 (134-434); RBC 4.54 M/mm3 (4.00-5.60); RDW 14.8 % (11.9-15.9); WHITE BLOOD COUNT 7.7 K/mm3 (4.0-10.0)
[2018-08-01 11:29] LABS: ALBUMIN 3.7 g/dl (3.4-5.0); ALK PHOS 78 U/L (45-117); ANION GAP 7 MMOL/L (8-16); BILIRUBIN,TOTAL 0.2 mg/dL (0.2-1); BLOOD UREA NITROGEN 15 mg/dL (7-18); CALCIUM 8.7 mg/dL (8.5-10.1); CHLORIDE 104 mmol/L (98-107); CO2 29 mmol/L (21-32); CREATININE 0.8 mg/dL (0.55-1.3); GLUCOSE,RANDOM 136 mg/dL (74-106); POTASSIUM 3.5 mmol/L (3.5-5.1); SGOT/AST 23 U/L (15-37); SGPT/ALT 38 U/L (13-61); SODIUM 141 mmol/L (136-145); TOT PROT 7.8 g/dl (6.4-8.2)
--- NOTE | 2018-08-01 11:48 | EKG ---
Test Reason : Blood Pressure : / mmHG Vent. Rate : 104 BPM Atrial Rate : 104 BPM P-R Int : 132 ms QRS Dur : 092 ms QT Int : 346 ms P-R-T Axes : 065 066 040 degrees QTc Int : 454 ms SINUS TACHYCARDIA OTHERWISE NORMAL ECG WHEN COMPARED WITH ECG OF 13-MAY-2018 12:14, VENT. RATE HAS INCREASED BY 36 BPM Confirmed by Lit Beauchamp MD ([id number]) on 08/01/2018 11:48:12 AM Referred By: Confirmed By:Lit Beauchamp MD
--- NOTE | 2018-08-01 11:48 | EKG ---
Test Reason : Blood Pressure : / mmHG Vent. Rate : 091 BPM Atrial Rate : 091 BPM P-R Int : 124 ms QRS Dur : 102 ms QT Int : 364 ms P-R-T Axes : 064 057 040 degrees QTc Int : 447 ms NORMAL SINUS RHYTHM NORMAL ECG WHEN COMPARED WITH ECG OF 31-JUL-2018 21:58, NO SIGNIFICANT CHANGE WAS FOUND Confirmed by Lit Beauchamp MD ([id number]) on 08/01/2018 11:48:09 AM Referred By: Confirmed By:Lit Beauchamp MD
--- NOTE | 2018-08-01 16:37 | CONSULT ---
[facility] Psychiatric Consult - Data Date of interview: 08/01/18 Admission source: [facility] Identifying data: Patient is a 37 year old male, engaged, without children, unemployed, domiciled, and is supported by scholarships and school loans. He is currently a student at [employer]. Patient admitted to for alcohol dependence. Substance Abuse History: - Smoking Cessation. Smoking history: Never smoked. Have you smoked in the past 12 months: No. Hx Chewing Tobacco Use: No. Initiated information on smoking cessation: No. - Substance & Tx. History. Hx Alcohol Use: Yes. Hx Substance Use: Yes. Substance Use Type: Alcohol. Hx Substance Use Treatment: Yes ([facility] 04/20/18). - Substances Abused. Alcohol. Route: Oral. Frequency: 1-2 times per week. Amount used: 3 BOTTLE. Age of first use: 16. Date of Last Use: 07/31/18 Medical History: Asthma Psychiatric History: Patient denies h/o psychiatric hospitalization, outpatient care, and suicide attempt. Patient's only psychiatric contact was at detox/ rehab facilites. Physical/Sexual Abuse/Trauma History: denies. Mental Status Exam - Mental Status Exam Alert and Oriented to: Time, Place, Person Cognitive Function: Good Patient Appearance: Well Groomed Mood: Hopeful, Euthymic Affect: Appropriate, Mood Congruent Patient Behavior: Appropriate, Cooperative Speech Pattern: Clear, Appropriate Voice Loudness: Normal Thought Process: Intact, Goal Oriented Thought Disorder: Not Present Hallucinations: Denies Suicidal Ideation: Denies Homicidal Ideation: Denies Insight/Judgement: Poor Sleep: Fair Appetite: Fair Muscle strength/Tone: Normal Gait/Station: Normal Psychiatric Findings - Problem List ([place] 1, 2,3) (1) Alcohol dependence with uncomplicated withdrawal Current Visit: Yes Status: Acute - Initial Treatment Plan Initial Treatment Plan: Psychoeducation provided. Detoxification in progress. Observation,.
[2018-08-01] MEDS: THIAMINE HCL 100 MG TABLET (FP) PO SCH (22:20)
--- NOTE | 2018-08-02 09:29 | PN ---
BHS Progress Note Note: pt is feeling better and wants to have his detox regimen decreased. Pt wants to leave tomorrow because he has to attend school tomorrow evening. Pt regimen decreased as per pt request.
--- NOTE | 2018-08-02 09:40 | PN ---
S CIWA - CIWA Score Nausea/Vomitin-No Nausea/No Vomiting Muscle Tremors: None Anxiety: 3 Agitation: 3 Paroxysmal Sweats: No Perspiration Orientation: 0-Oriented Tacttile Disturbances: 0-None Auditory Disturbances: 0-None Visual Disturbances: 0-None Headache: 0-None Present CIWA-Ar Total Score: 6 BHS Progress Note (SOAP) Subjective: mild anxiety feeling much better. Objective: 08/02/18 09:30 Vital Signs Temperature 97.9 F 08/02/18 07:19 Pulse Rate 83 08/02/18 07:19 Respiratory Rate 18 08/02/18 07:19 Blood Pressure 125/81 08/02/18 07:19 O2 Sat by Pulse Oximetry (%) Laboratory Tests 07/31/18 08/01/18 08/01/18 22:43 07:00 07:00 WBC 7.7 RBC 4.54 Hgb 12.1 Hct 37.8 MCV 83.1 MCH 26.6 MCHC 32.0 RDW 14.8 Plt Count 279 MPV 7.4 L Sodium 141 Potassium 3.5 Chloride 104 Carbon Dioxide 29 Anion Gap 7 L BUN 15 Creatinine 0.8 Creat Clearance w eGFR > 60 Random Glucose 136 H Calcium 8.7 Total Bilirubin 0.2 AST 23 ALT 38 Alkaline Phosphatase 78 Total Protein 7.8 Albumin 3.7 Urine Color Colorless Urine Appearance Clear Urine pH 6.0 Ur Specific [place] 1.003 L Urine Protein Negative Urine Glucose (UA) Negative Urine Ketones Negative Urine Blood 1+ H Urine Nitrite Negative Urine Bilirubin Negative Urine Urobilinogen Negative Ur Leukocyte Esterase Negative Urine WBC (Auto) <1 Urine RBC (Auto) None RPR Titer 08/01/18 07:00 WBC RBC Hgb Hct MCV MCH MCHC RDW Plt Count MPV Sodium Potassium Chloride Carbon Dioxide Anion Gap BUN Creatinine Creat Clearance w eGFR Random Glucose Calcium Total Bilirubin AST ALT Alkaline Phosphatase Total Protein Albumin Urine Color Urine Appearance Urine pH Ur Specific [place] Urine Protein Urine Glucose (UA) Urine Ketones Urine Blood Urine Nitrite Urine Bilirubin Urine Urobilinogen Ur Leukocyte Esterase Urine WBC (Auto) Urine RBC (Auto) RPR Titer Nonreactive aaox3 ambulating no acute distress Assessment: 08/02/18 09:32 slight withdrawal Plan: increase fluids continue detox d/c in am
[2018-08-02] MEDS: PRENATAL VITAMINS W/ FOLIC ACID TABLET (FP) PO SCH (10:28)
[2018-08-02] MEDS: diazePAM 5 MG TABLET PO SCH ×2 (10:30→22:27)
[2018-08-02] MEDS: THIAMINE HCL 100 MG TABLET (FP) PO SCH (22:27)
[2018-08-02] MEDS: hydrOXYzine PAMOATE 25 MG CAPSULE (FP) PO PRN (22:27)
[2018-08-02] MEDS: MELATONIN 5 MG TABLETS PO PRN (22:27)
[2018-08-03] MEDS ORDERED: diazePAM 5 MG TABLET PO ONE (06:00)
[2018-08-03 08:00] VITALS: TEMP 98.1
--- NOTE | 2018-08-03 08:45 | DS ---
[facility] Detox Discharge Summary Admission Date: 07/31/18 Discharge Date: 08/03/18 - History Present History: Alcohol Dependence - Physical Exam Results Vital Signs: Vital Signs Temperature 98.1 F 08/03/18 07:59 Pulse Rate 97 H 08/03/18 07:59 Respiratory Rate 20 08/03/18 07:59 Blood Pressure 139/83 08/03/18 07:59 O2 Sat by Pulse Oximetry (%) - Treatment Hospital Course: Detox Protocol Followed, Detoxed Safely, Responded well, Discharged Condition Good, Rehab Referral Accepted - Medication Discharge Medications: Ambulatory Orders NK [No Known Home Medication] 07/31/18 - Diagnosis (1) Alcohol dependence with uncomplicated withdrawal Current Visit: Yes Status: Acute (2) Bronchial asthma Current Visit: Yes Status: Chronic Qualifiers: Asthma severity: mild (3) Depression Current Visit: Yes Status: Suspected Qualifiers: Depression Type: unspecified Qualified Code(s): F32.9 - Major depressive disorder, single episode, unspecified (4) Alcohol-induced mood disorder Current Visit: No Status: Acute (5) Appendicitis Current Visit: No Status: Acute Qualifiers: Appendicitis type: acute appendicitis (6) EtOH dependence Current Visit: No Status: Acute (7) Postoperative ileus Current Visit: No Status: Acute (8) Anxiety Current Visit: No Status: Chronic - AMA Did Patient Leave Against Medical Advice: No
[2018-08-03 10:58] VITALS: BP 135/86; PULSE 106
[2018-08-04] MEDS ORDERED: diazePAM 5 MG TABLET PO SCH (10:00)
== END 2018-08-03 09:55 | disposition home or self-care (01) | DRG 775 ==
LOC: YASAS 17:48 → Y6N 18:29
PROC: HZ2ZZZZ Detoxification Services for Substance Abuse Treatment (ICD-10-PCS; principal; 2018-07-31)
DX: F10.230 Alcohol dependence with withdrawal, uncomplicated (principal); F10.24 Alcohol dependence with alcohol-induced mood disorder; F32.9 Major depressive disorder, single episode, unspecified; F41.9 Anxiety disorder, unspecified; J45.909 Unspecified asthma, uncomplicated; R00.0 Tachycardia, unspecified
CPT/HCPCS: 36415; 80053; 81003; 81015; 85027; 86593; 93005; 93010

== ENCOUNTER 2018-09-16 20:43 | Inpatient (IN) | payer OTHER ==
[2018-09-16 20:47] VITALS: BMI 25.9
--- NOTE | 2018-09-16 21:11 | PDOC ---
History of Present Illness - General Chief Complaint: Pain, Acute Stated Complaint: ABDOMINAL PAIN Time Seen by Provider: 09/16/18 20:58 History Source: Patient Exam Limitations: No Limitations - History of Present Illness Travel History: No Initial Comments: 09/16/18 21:35 Best Contact: PCP:None Pmhx: Patient states he was NIDDM for 1 month in 2014, renal colic Pshx: May 2018: Appendectomy/Dr. Godwin Allergies: NO KNOWN DRUG ALLERGIES FH: Denies Social Hx: Cigarettes/ denies Alcohol/ social Drugs/denies 37-year-old male presents to the ER complaining of right upper quadrant/right upper side pain 7 days. Pain is described as 6/10 dull nonradiating intermittent discomfort. The pain is exacerbated on positional and alleviated after taking Motrin. Patient endorses fever/Tmax 101 at approximately 1400 hrs. today. Patient initially took Motrin 200 mg by mouth which brought the temperature down to 100.4 then he took Motrin 400 mg by mouth at approximately 1600 hrs. which subsided the pain. Patient denies history of similar symptoms and also denies chills, headache, dizziness, lightheadedness, facial pains, neck stiffness/pain, back pain, chest pain, shortness of breath, flank pains, urinary symptoms: Frequency/urgency/hesitancy, burning upon urination or hematuria. Patient states eating does not change Past History - Past Medical History Allergies/Adverse Reactions: Allergies Allergy/AdvReac Type Severity Reaction Status Date / Time No Known Allergies Allergy Verified 09/16/18 20:47 Home Medications: Ambulatory Orders NK [No Known Home Medication] 07/31/18 Anemia: No Asthma: Yes Cancer: No Cardiac Disorders: No CVA: No COPD: No CHF: No Dementia: No Diabetes: No GI Disorders: No Disorders: No HTN: No Hypercholesterolemia: No Kidney Stones: No Liver Disease: No Seizures: No Thyroid Disease: No - Surgical History Abdominal Surgery: No Appendectomy: No Cardiac Surgery: No Cholecystectomy: No Lung Surgery: No Neurologic Surgery: No Orthopedic Surgery: No - Reproductive History Testicular Surgery: No - Suicide/Smoking/Psychosocial Hx Smoking History: Never smoked Have you smoked in the past 12 months: No Information on smoking cessation initiated: No Hx Alcohol Use: No Drug/Substance Use Hx: No Substance Use Type: Alcohol Hx Substance Use Treatment: Yes ([facility] 04/20/18) Abd/GI Specific PMHX - Complaint Specific PMHX Hepatitis: No Pancreatitis: No Review of Systems - Review of Systems Able to Perform ROS?: Yes Comments:: 09/16/18 21:34 CONSTITUTIONAL: Absent: fever, chills, diaphoresis, generalized weakness, malaise, loss of appetite HEENT: Absent: rhinorrhea, nasal congestion, throat pain, throat swelling, difficulty swallowing, mouth swelling, ear pain, eye pain, visual Changes CARDIOVASCULAR: Absent: chest pain, loss of consciousness, palpitations, irregular heart rate, peripheral edema RESPIRATORY: Absent: cough, shortness of breath, dyspnea with exertion, orthopnea, wheezing, stridor, hemoptysis GASTROINTESTINAL: +RUQ abd pain x7d Absent: abdominal distension, nausea, vomiting, diarrhea, constipation, melena , hematochezia GENITOURINARY: Absent: dysuria, frequency, urgency, hesitancy, hematuria, flank pain, genital pain MUSCULOSKELETAL: Absent: myalgia, arthralgia, joint swelling SKIN: Absent: rash, itching, pallor HEMATOLOGIC/IMMUNOLOGIC: Absent: easy bleeding, easy bruising, lymphadenopathy, frequent infections ENDOCRINE: Absent: unexplained weight gain, unexplained weight loss, heat intolerance, cold intolerance NEUROLOGIC: Absent: headache, focal weakness or paresthesias, dizziness, unsteady gait, seizure, mental status changes, bladder or bowel incontinence PSYCHIATRIC: Absent: anxiety, depression, suicidal or homicidal ideation, hallucinations. Is the patient limited German proficient: No *Physical Exam - Vital Signs Last Vital Signs Temp Pulse Resp BP Pulse Ox 98.7 F 93 H 16 114/72 100 09/16/18 20:45 09/16/18 20:45 09/16/18 20:45 09/16/18 20:45 09/16/18 20:45 - Physical Exam Comments: 09/16/18 21:34 GENERAL: Well developed, well nourished. Awake and alert. No acute distress. HEENT: Normocephalic, atraumatic. PERRLA, EOMI. No conjunctival pallor. Sclera are non- icteric. Moist mucous membranes. Oropharynx is clear. NECK: Supple. Full ROM. No JVD. Carotid pulses 2+ and symmetric, without bruits. No thyromegaly. No lymphadenopathy. CARDIOVASCULAR: Regular rate and rhythm. No murmurs, rubs, or gallops. Distal pulses are 2+ and symmetric. PULMONARY: No evidence of respiratory distress. Lungs clear to auscultation bilaterally. No wheezing, rales or rhonchi. ABDOMINAL: Soft. Non-tender. Non-distended. No rebound or guarding. No organomegaly. Normoactive bowel sounds. MUSCULOSKELETAL Normal range of motion at all joints. No bony deformities or tenderness. No CVA tenderness. EXTREMITIES: No cyanosis. No clubbing. No edema. No calf tenderness. SKIN: Warm and dry. Normal capillary refill. No rashes. No jaundice. NEUROLOGICAL: Alert, awake, appropriate. Cranial nerves 2-12 intact. No deficits to light touch and temperature in face, upper extremities and lower extremities. No motor deficits in the in face, upper extremities and lower extremities. Normoreflexic in the upper and lower extremities. Normal speech. Toes are down- going bilaterally. Gait is normal without ataxia. ED Treatment Course - LABORATORY CBC & Chemistry Diagram: 09/16/18 21:20 09/16/18 21:20 - RADIOLOGY Radiograph Interpretation: 09/16/18 21:35 US: abd limited: Mild prominent liver which could be due to a Meghann's lobe or mild hypertrophy. Otherwise unremarkable right upper quadrant abdominal sonogram CAT scan abdomen and pelvis with IV contrast shows heterogeneous masslike area within the posterior aspect of the right lobe of liver with extension through the liver into the adjacent diaphragmatic muscle. The parents fevers and hepatic abscess over a neoplastic process. Consider CT-guided biopsy/aspiration for further characterization. Progress Note - Progress Note Progress Note: 2338hrs: Called Dr. Velásquez/interventional radiologist [phone] Velásquez/ advised to admit to hospitalist and call Dr. Jose Friend early in the am for drainage of the liver 2341hrs: microblogged hospitalist *DC/Admit/Observation/Transfer Diagnosis at time of Disposition: Hepatic abscess - Discharge Dispostion Condition at time of disposition: Stable Decision to Admit order: Yes - Referrals Referrals: ON STAFF,NOT [Primary Care Provider] - - Patient Instructions - Post Discharge Activity
[2018-09-16 21:26] LABS: BASO % 0.6 % (0-2.0); EOS % 0.9 % (0-4.5); HEMATOCRIT 37.6 % (35.4-49); HEMOGLOBIN 13.1 GM/dL (11.7-16.9); MCH 28.1 pg (25.7-33.7); MCHC 34.8 g/dl (32.0-35.9); MEAN CELL VOLUME 80.6 fl (80-96); MEAN PLT VOLUME 7.2 fl (7.5-11.1); NEUT % 72.5 % (42.8-82.8); PLATELET COUNT 413 K/MM3 (134-434); RBC 4.66 M/mm3 (4.00-5.60); WHITE BLOOD COUNT 15.2 K/mm3 (4.0-10.0)
[2018-09-16 21:32] LABS: URINE APPEARANCE CLEAR; URINE BILIRUBIN NEGATIVE (<2.0 mg/dL); URINE COLOR YELLOW; URINE GLUCOSE (UA) NEGATIVE (NEGATIVE); URINE KETONE NEGATIVE (NEGATIVE); URINE LEUK ESTERASE NEGATIVE (NEGATIVE); URINE NITRITE NEGATIVE (NEGATIVE); URINE PROTEIN 1+ (NEGATIVE)
[2018-09-16 21:49] LABS: URINE MUCUS FEW
[2018-09-16 22:09] LABS: ALBUMIN 3.6 g/dl (3.4-5.0); ALK PHOS 95 U/L (45-117); ANION GAP 13 MMOL/L (8-16); BILIRUBIN,TOTAL 0.3 mg/dL (0.2-1); BLOOD UREA NITROGEN 22 mg/dL (7-18); CALCIUM 9.3 mg/dL (8.5-10.1); CHLORIDE 97 mmol/L (98-107); CO2 25 mmol/L (21-32); GLUCOSE,RANDOM 99 mg/dL (74-106); LIPASE 249 U/L (73-393); POTASSIUM 3.7 mmol/L (3.5-5.1); SGOT/AST 23 U/L (15-37); SGPT/ALT 35 U/L (13-61); SODIUM 134 mmol/L (136-145)
[2018-09-16] MEDS ORDERED: VANCOMYCIN 1,000 MG in DEXTROSE 5%-WATER - 250 ML IVPB ONE (23:49)
[2018-09-16] MEDS ORDERED: CEFTRIAXONE 1 GM in DEXTROSE 5%-WATER - 100 ML IVPB ONE (23:50)
[2018-09-17] MEDS ORDERED: VANCOMYCIN 1 GRAM (PRE-DOCKED) 1,000 MG/250 ML BAG IVPB ONE (00:03)
[2018-09-17] MEDS ORDERED: CEFTRIAXONE 1 GM/50 ML BAG ONE (00:04)
--- NOTE | 2018-09-17 00:21 | PN ---
Teaching Attending Note Name of Resident: Ya Antunez ATTENDING PHYSICIAN STATEMENT I saw and evaluated the patient. I reviewed the resident's note and discussed the case with the resident. I agree with the resident's findings and plan as documented. SUBJECTIVE: Patient is a 37 year old man with history of appendectomy, resolved DM?, asthma , alcohol abuse and renal colic who presents to the ER complaining of right upper quadrant/right upper side pain 7 days. Pain is described as 6/10 dull nonradiating intermittent discomfort. The pain is exacerbated on positional and alleviated after taking Motrin. Patient endorses fever/Tmax 101 at approximately 1400 hrs. today. Patient initially took Motrin 200 mg by mouth which brought the temperature down to 100.4 then he took Motrin 400 mg by mouth at approximately 1600 hrs. which subsided the pain. Says he had appendectomy 2 months ago and has had abdominal discomfort since then. Patient denies chills, headache, dizziness, lightheadedness, facial pains, neck stiffness/pain, back pain, chest pain, shortness of breath, flank pains or urinary symptoms. Patient states eating does not change the pain. Got analgesic and is now painfree. OBJECTIVE: Alert Vital Signs Period Temp Pulse Resp BP Sys/Farfan Pulse Ox Last 24 Hr 98.7 F 93 16 114/72 100 HEENT: No Jaundice, eye redness or discharge, PERRLA, EOMI. Normocephalic, atraumatic. External ears are normal and hearing is grossly intact. No nasal discharge. Neck: Supple, nontender. No palpable adenopathy or thyromegaly. No JVD Chest: Good effort. Clear to auscultation and percussion. Heart: Regular. No S3, rub or murmur Abdomen: Not distended, soft, nontender and no HSM. No rebound or guarding. Normoactive bowel sounds. Ext: Peripheral pulses intact. No leg edema. Skin: Warm and dry. No petechiae, rash or ecchymosis. Neuro: Alert. Oriented x3. CN 2-12 grossly intact. Sensation grossly intact in all four extremities and DTR are symmetric. Current Medications Generic Name Dose Route Start Last Admin Trade Name Freq PRN Reason Stop Dose Admin Vancomycin HCl 1,000 mg/ 250 mls @ 166.667 mls/hr 09/16/18 23:49 Dextrose IVPB 09/17/18 01:18 ONCE ONE Protocol Home Medications Medication Instructions Recorded NK [No Known Home Medication] 07/31/18 Abnormal Lab Results 09/16/18 09/16/18 09/16/18 21:20 21:20 21:20 WBC 15.2 H MPV 7.2 L Absolute Neuts (auto) 11.0 H Sodium 134 L Chloride 97 L BUN 22 H Total Protein 9.0 H Urine Protein 1+ H ASSESSMENT AND PLAN: 1. Hepatic abscess - Will get drainage/biopsy of hepatic lesion by IR. Treat with IV zosyn, keep him NPO and give IV NS. 2. Alcohol abuse - Implement [facility] alcohol withdrawal protocol, fall and aspiration precautions. Treat with thiamine and folic acid and monitor electrolytes (Ca,Mg,K,P). [employer] Architect patient about abstaining from alcohol and refer to alcohol detox upon discharge. 3. DVT prophylaxis - SCD, TEDs, Lovenox 40 mg SQ q 24 hours. 4. Advance directives - Full code
[2018-09-17] MEDS ORDERED: SODIUM CHLORIDE 1,000 ML IV SCH (02:15)
[2018-09-17] MEDS ORDERED: FOLIC ACID 5 MG/1 ML IVPB ONE (02:18)
[2018-09-17] MEDS ORDERED: PIPERACILLIN/TAZOB 3.375 GM 3.375 GM/50 ML BAG IVPB ONE ×2 (02:24→10:45)
--- NOTE | 2018-09-17 02:26 | HP ---
CHIEF COMPLAINT: RUQ pain for 7 days PCP: HISTORY OF PRESENT ILLNESS: 37 y/o male with PMH of asthma, previous DM (resolved with lifestyle modifications not on meds), alcohol dependence (multiple detox admissions), right kidney stone presents to the ED for RUQ pain for the past 7-8 days. Of note, patient had an appendectomy about 2.5 months ago and has had pain since. He states the pain feels better when he sits up a little but when he fully sits up the pain is worse and radiates to his back. the pain he describes is dull and he does get relief with ibuprofen. he has had nausea since yesterday and had a Tmax at home of 101.1. ER course was notable for: (1) WBC 15.2 (2)ab/pelvis CT shows RUL of liver: heterogenous hypoenhancing area with some focal hyperdense area concerning for a hepatic abcess with extrahepatic extension (3)given ceftriaxone and vancomycin Recent Travel: none PAST MEDICAL HISTORY: see above PAST SURGICAL HISTORY: appendectomy Social History: Smoking:denies Alcohol:drinks 1-2 times per week; 3 bottles with multiple admissions to detox Drugs: Family History: mother: from breast ca; also had DM Allergies No Known Allergies Allergy (Verified 09/16/18 20:47) HOME MEDICATIONS: Home Medications Medication Instructions Recorded NK [No Known Home Medication] 07/31/18 REVIEW OF SYSTEMS CONSTITUTIONAL: Absent: fever, chills, diaphoresis, generalized weakness, malaise, loss of appetite, weight change HEENT: Absent: rhinorrhea, nasal congestion, throat pain, throat swelling, difficulty swallowing, mouth swelling, ear pain, eye pain, visual changes CARDIOVASCULAR: Absent: chest pain, syncope, palpitations, irregular heart rate, lightheadedness , peripheral edema RESPIRATORY: Absent: cough, shortness of breath, dyspnea with exertion, orthopnea, wheezing, stridor, hemoptysis GASTROINTESTINAL: Present: abdominal pain,nausea, Absent: abdominal distension, vomiting, diarrhea, constipation, melena, hematochezia GENITOURINARY: Absent: dysuria, frequency, urgency, hesitancy, hematuria, flank pain, genital pain MUSCULOSKELETAL: Absent: myalgia, arthralgia, joint swelling, back pain, neck pain SKIN: Absent: rash, itching, pallor HEMATOLOGIC/IMMUNOLOGIC: Absent: easy bleeding, easy bruising, lymphadenopathy, frequent infections ENDOCRINE: Absent: unexplained weight gain, unexplained weight loss, heat intolerance, cold intolerance NEUROLOGIC: Absent: headache, focal weakness or paresthesias, dizziness, unsteady gait, seizure, mental status changes, bladder or bowel incontinence PSYCHIATRIC: Absent: anxiety, depression, suicidal or homicidal ideation, hallucinations. PHYSICAL EXAMINATION Vital Signs - 24 hr 09/16/18 20:45 Temperature 98.7 F Pulse Rate 93 H Respiratory 16 Rate Blood Pressure 114/72 O2 Sat by Pulse 100 Oximetry (%) GENERAL: Awake, alert, and fully oriented, in no acute distress. EYES:no scleral icterus NECK: no JVD, no lymphadenoapthy LUNGS: CTA B/L; no rales, rhonchi or wheezing HEART: Regular rate and rhythm, normal S1 and S2 without murmur, rub or gallop. ABDOMEN: Soft, nontender, not distended, normoactive bowel sounds, no guarding, no rebound, no masses. No hepatomegaly or splenomegaly. MUSCULOSKELETAL: Normal range of motion at all joints. No bony deformities or tenderness. No CVA tenderness. EXTREMITIES: warm; well-perfused, no clubbing/cyanosis or edema SKIN: Warm, dry, normal turgor, no rashes or lesions noted, normal capillary refill. Laboratory Results - last 24 hr 09/16/18 09/16/18 09/16/18 21:20 21:20 21:20 WBC 15.2 H RBC 4.66 Hgb 13.1 Hct 37.6 MCV 80.6 MCH 28.1 MCHC 34.8 RDW 15.0 Plt Count 413 D MPV 7.2 L Absolute Neuts (auto) 11.0 H Neutrophils % 72.5 Lymphocytes % 16.0 Monocytes % 10.0 Eosinophils % 0.9 Basophils % 0.6 Nucleated RBC % 0 PT with INR INR Sodium 134 L Potassium 3.7 Chloride 97 L Carbon Dioxide 25 Anion Gap 13 BUN 22 H Creatinine 1.0 Creat Clearance w eGFR > 60 Random Glucose 99 Lactic Acid Calcium 9.3 Total Bilirubin 0.3 AST 23 ALT 35 Alkaline Phosphatase 95 Total Protein 9.0 H Albumin 3.6 Lipase 249 Urine Color Yellow Urine Appearance Clear Urine pH 5.0 Ur Specific [place] 1.033 Urine Protein 1+ H Urine Glucose (UA) Negative Urine Ketones Negative Urine Blood Negative Urine Nitrite Negative Urine Bilirubin Negative Urine Urobilinogen 2.0 Ur Leukocyte Esterase Negative Urine WBC (Auto) 2 Urine RBC (Auto) 5 Urine Mucus Few 09/17/18 09/17/18 00:07 00:24 WBC RBC Hgb Hct MCV MCH MCHC RDW Plt Count MPV Absolute Neuts (auto) Neutrophils % Lymphocytes % Monocytes % Eosinophils % Basophils % Nucleated RBC % PT with INR Cancelled INR Cancelled Sodium Potassium Chloride Carbon Dioxide Anion Gap BUN Creatinine Creat Clearance w eGFR Random Glucose Lactic Acid 1.0 Calcium Total Bilirubin AST ALT Alkaline Phosphatase Total Protein Albumin Lipase Urine Color Urine Appearance Urine pH Ur Specific [place] Urine Protein Urine Glucose (UA) Urine Ketones Urine Blood Urine Nitrite Urine Bilirubin Urine Urobilinogen Ur Leukocyte Esterase Urine WBC (Auto) Urine RBC (Auto) Urine Mucus ASSESSMENT/PLAN: 37 y/o male with PMH of asthma, DM, alcohol depedence presents to the ED for RUQ pain for the past 7 days found to most likely have a hepatic abcess. #Hepatic Abcess possible hepatic abcess found on CT scan with extrahepatic extension -ED spoke with Dr Melvin and Dr Corona who will drain abcess in morning -Zosyn for abx coverage -NS @83mls/hr -NPO for now #Alcohol Use -thiamine and folate -monitor electrolytes -pastoral counselor about cessation/detox F/E/N NS @83mls/hr monitor electrolytes NPO DVT PPX: lovenox 40 SQ dispo: admit to med-surg
[2018-09-17] MEDS: PIPERACILLIN/TAZOB 3.375 GM 3.375 GM in DEXTROSE 5%-WATER - 50 ML IVPB SCH ×2 (03:01→11:07)
[2018-09-17 05:34] LABS: INR 1.3 (0.83-1.09); PROTHROMBIN TIME (PATIENT) 15.4 SEC (9.7-13.0)
[2018-09-17 07:50] LABS: ALK PHOS 76 U/L (45-117); ANION GAP 9 MMOL/L (8-16); BILIRUBIN,TOTAL 0.6 mg/dL (0.2-1); BLOOD UREA NITROGEN 17 mg/dL (7-18); CALCIUM 8.3 mg/dL (8.5-10.1); CHLORIDE 100 mmol/L (98-107); CO2 27 mmol/L (21-32); CREATININE 0.9 mg/dL (0.55-1.3); GLUCOSE,RANDOM 105 mg/dL (74-106); MAGNESIUM 2.3 mg/dL (1.8-2.4); PHOSPHOROUS 4.2 mg/dL (2.5-4.9); POTASSIUM 4.1 mmol/L (3.5-5.1); SGOT/AST 16 U/L (15-37); SGPT/ALT 27 U/L (13-61); SODIUM 136 mmol/L (136-145); TOT PROT 7.5 g/dl (6.4-8.2)
[2018-09-17 07:54] LABS: BASO % 0.3 % (0-2.0); EOS % 0.4 % (0-4.5); HEMOGLOBIN 11.7 GM/dL (11.7-16.9); LYMPH % 16.6 % (8-40); MCH 27.8 pg (25.7-33.7); MCHC 34.5 g/dl (32.0-35.9); MEAN CELL VOLUME 80.6 fl (80-96); MEAN PLT VOLUME 7.5 fl (7.5-11.1); MONO % 11.8 % (3.8-10.2); NEUT % 70.9 % (42.8-82.8); PLATELET COUNT 352 K/MM3 (134-434); RBC 4.22 M/mm3 (4.00-5.60)
[2018-09-17] MEDS ORDERED: ENOXAPARIN NA (PORCINE) 40 MG/0.4 ML DISP.SYRIN SQ SCH (10:00)
[2018-09-17] MEDS ORDERED: THIAMINE HCL 200 MG/2 ML VIAL IVPB SCH (10:00)
[2018-09-17] MEDS ORDERED: THIAMINE HCL 200 MG/2 ML VIAL ONE (10:28)
[2018-09-17] MEDS: DEXTROSE 5%-LACTATED RINGERS 1,000 ML IV SCH (10:58)
--- NOTE | 2018-09-17 11:26 | PN ---
Physical Exam: SUBJECTIVE: Patient seen and examined, still with abdominal pain, just got back from IR, feels anxious, asking for pain medications, overall pain with some improvement. OBJECTIVE: Vital Signs Period Temp Pulse Resp BP Sys/Farfan Pulse Ox Last 24 Hr 98.0 F-99.6 F 93-105 16-20 102-114/56-72 99-100 GENERAL: The patient is awake, alert, and fully oriented, in no acute distress. Neck: soft supple Chest: CTAB, no rales or wheezing Abdomen: soft, no RUQ elicited currently, however RUQ on examination of left abdomen, no voluntary or involuntary guarding or rigidity, positive bowel sounds , NT otherwise, no Right or left CVA tenderness Extremities: no edema Laboratory Results - last 24 hr 09/16/18 09/16/18 09/16/18 21:20 21:20 21:20 WBC 15.2 H RBC 4.66 Hgb 13.1 Hct 37.6 MCV 80.6 MCH 28.1 MCHC 34.8 RDW 15.0 Plt Count 413 D MPV 7.2 L Absolute Neuts (auto) 11.0 H Neutrophils % 72.5 Lymphocytes % 16.0 Monocytes % 10.0 Eosinophils % 0.9 Basophils % 0.6 Nucleated RBC % 0 PT with INR INR Sodium 134 L Potassium 3.7 Chloride 97 L Carbon Dioxide 25 Anion Gap 13 BUN 22 H Creatinine 1.0 Creat Clearance w eGFR > 60 Random Glucose 99 Lactic Acid Calcium 9.3 Phosphorus Magnesium Total Bilirubin 0.3 AST 23 ALT 35 Alkaline Phosphatase 95 Total Protein 9.0 H Albumin 3.6 Lipase 249 Urine Color Yellow Urine Appearance Clear Urine pH 5.0 Ur Specific [place] 1.033 Urine Protein 1+ H Urine Glucose (UA) Negative Urine Ketones Negative Urine Blood Negative Urine Nitrite Negative Urine Bilirubin Negative Urine Urobilinogen 2.0 Ur Leukocyte Esterase Negative Urine WBC (Auto) 2 Urine RBC (Auto) 5 Urine Mucus Few 09/17/18 09/17/18 09/17/18 00:07 00:24 06:36 WBC 12.0 H RBC 4.22 Hgb 11.7 Hct 34.0 L MCV 80.6 MCH 27.8 MCHC 34.5 RDW 15.0 Plt Count 352 MPV 7.5 Absolute Neuts (auto) 8.5 H Neutrophils % 70.9 Lymphocytes % 16.6 Monocytes % 11.8 H Eosinophils % 0.4 Basophils % 0.3 Nucleated RBC % 0 PT with INR 15.40 H INR 1.30 H Sodium Potassium Chloride Carbon Dioxide Anion Gap BUN Creatinine Creat Clearance w eGFR Random Glucose Lactic Acid 1.0 Calcium Phosphorus Magnesium Total Bilirubin AST ALT Alkaline Phosphatase Total Protein Albumin Lipase Urine Color Urine Appearance Urine pH Ur Specific [place] Urine Protein Urine Glucose (UA) Urine Ketones Urine Blood Urine Nitrite Urine Bilirubin Urine Urobilinogen Ur Leukocyte Esterase Urine WBC (Auto) Urine RBC (Auto) Urine Mucus 09/17/18 06:36 WBC RBC Hgb Hct MCV MCH MCHC RDW Plt Count MPV Absolute Neuts (auto) Neutrophils % Lymphocytes % Monocytes % Eosinophils % Basophils % Nucleated RBC % PT with INR INR Sodium 136 Potassium 4.1 Chloride 100 Carbon Dioxide 27 Anion Gap 9 BUN 17 Creatinine 0.9 Creat Clearance w eGFR > 60 Random Glucose 105 Lactic Acid Calcium 8.3 L Phosphorus 4.2 Magnesium 2.3 Total Bilirubin 0.6 AST 16 ALT 27 Alkaline Phosphatase 76 Total Protein 7.5 Albumin 3.0 L Lipase Urine Color Urine Appearance Urine pH Ur Specific [place] Urine Protein Urine Glucose (UA) Urine Ketones Urine Blood Urine Nitrite Urine Bilirubin Urine Urobilinogen Ur Leukocyte Esterase Urine WBC (Auto) Urine RBC (Auto) Urine Mucus Active Medications Generic Name Dose Route Start Last Admin Trade Name Freq PRN Reason Stop Dose Admin Acetaminophen 650 mg 09/17/18 11:06 Tylenol - PO Q6H PRN PAIN LEVEL 1-5 Piperacillin Sod/Tazobactam 50 mls @ 100 mls/hr 09/17/18 18:00 Sod 3.375 gm/ Dextrose IVPB Q8H-IV PAUL Protocol Dextrose/Lactated Ringer's 1,000 mls @ 100 mls/hr 09/17/18 08:00 09/17/18 10: 58 D5-Lr - IV 100 mls/hr ASDIR PAUL Administration Ketorolac Tromethamine 15 mg 09/17/18 11:06 Toradol Injection - IVPUSH 09/22/18 11:05 Q6H PRN PAIN LEVEL 6-10 Thiamine HCl 200 mg 09/17/18 10:00 09/17/18 10:45 Vitamin B1 Injection - IVPB 200 mg DAILY PAUL Administration ASSESSMENT/PLAN: 37 yom with PMhx of asthma, prior DM (reportedly resolved with lifestyle modifications), ETOH abuse s/p detox admitted with RUL hepatic mass suspicious for abscess. -RUL hepatic masses, suspicious for abscess -Recent appendectomy -ETOH abuse s/p detox -Prior reported DM -Asthma Plan: Discussed with Dr. Corona, s/p IR guided drain placement today. Thick brown fluid suspicious for abscess. Fluid studies/cultures sent, follow up. S/p zosyn/vancomycin in ED. Follow up blood cultures. ID input with Dr. Barton. Check A1c, HIV, hep panel (patient consented) Surgery consulted with Dr. Godwin. Pain control with tylenol/toradol. Drug screen. patient reports clean since detox, had few drinks on thanksgiving, none otherwise. Folate/thiamine, IVF, Monitor for withdrawal symptoms. DVTPPX lovenox Dispo pending clinical improvement. Plan discussed with patient and fiance at bedside in detail, all questions answered. Discussed with ED RN. Visit type - Emergency Visit Emergency Visit: Yes ED Registration Date: 09/16/18 Care time: The patient presented to the Emergency Department on the above date and was hospitalized for further evaluation of their emergent condition. - New Patient This patient is new to me today: Yes Date on this admission: 09/17/18 - Critical Care Critical Care patient: No - Discharge Referral Referred to [facility] Med [facility] No
[2018-09-17] MEDS ORDERED: KETOROLAC TROMETHAMINE 15 MG/ML VIAL ONE (11:33)
[2018-09-17] MEDS: KETOROLAC TROMETHAMINE 15 MG/ML VIAL IVPUSH PRN ×2 (11:33→19:37)
--- NOTE | 2018-09-17 14:45 | CON.ID ---
Consult Consult Specialty:: infectious diseases Reason for Consultation:: fever,liver abscess - History of Present Illness Chief Complaint: fever,abd pain History of Present Illness: 37 y/o male with PMH of asthma, DM , alcohol dependence (multiple detox admissions), right kidney stone admitted for RUQ pain for the past 7-8 days. patient had an appendectomy about 2.5 months ago and has had pain since. He states the pain feels better when he sits up a little but when he fully sits up the pain is worse and radiates to his back. the pain he describes is dull and he does get relief with ibuprofen. patient was spiking fevers and also was nauseous patient was worked up found to have liver abscess and was taken to the ir and the abscess was drained and now patient has a drainage tube in place patient now feels better - History Source History Provided By: Patient Limitations to Obtaining History: No Limitations - Past Medical History Pulmonary: Yes: Asthma Endocrine: Yes: Diabetes Mellitus - Alcohol/Substance Use Hx Alcohol Use: No History of Substance Use: reports: None - Smoking History Smoking history: Never smoked Have you smoked in the past 12 months: No - Social History ADL: Independent Occupation: CPA History of Recent Travel: No Home Medications - Allergies Allergies/Adverse Reactions: Allergies Allergy/AdvReac Type Severity Reaction Status Date / Time No Known Allergies Allergy Verified 09/16/18 20:47 - Home Medications Home Medications: Ambulatory Orders NK [No Known Home Medication] 07/31/18 Family Disease History - Family Disease History Family Disease History: CA: Mother (Breast Ca- ) Review of Systems - Review of Systems Constitutional: reports: Fever Eyes: reports: No Symptoms HENT: reports: No Symptoms Neck: reports: No Symptoms Cardiovascular: reports: No Symptoms Respiratory: reports: No Symptoms Gastrointestinal: reports: Abdominal Pain, Other (liver abscess) Genitourinary: reports: No Symptoms Musculoskeletal: reports: No Symptoms Integumentary: reports: No Symptoms Neurological: reports: No Symptoms Endocrine: reports: No Symptoms Hematology/Lymphatic: reports: No Symptoms Psychiatric: reports: No Symptoms Physical Exam Vital Signs: Vital Signs Temperature 98.2 F 09/17/18 12:15 Pulse Rate 93 H 09/17/18 14:12 Respiratory Rate 18 09/17/18 14:12 Blood Pressure 102/62 09/17/18 14:12 O2 Sat by Pulse Oximetry (%) 97 09/17/18 14:12 Constitutional: Yes: Well Nourished, No Distress, Calm Eyes: Yes: Conjunctiva Clear HENT: Yes: Atraumatic, Normocephalic Neck: Yes: Supple, Trachea Midline Cardiovascular: Yes: Regular Rate and Rhythm Respiratory: Yes: Regular, CTA Bilaterally Gastrointestinal: Yes: Normal Bowel Sounds, Soft, Other (driange tube in liver) Musculoskeletal: Yes: WNL Extremities: Yes: WNL Neurological: Yes: Alert, Oriented Psychiatric: Yes: Alert, Oriented Labs: CBC, BMP 09/17/18 06:36 09/17/18 06:36 Imaging - Results Cat Scan: Report Reviewed, Image Reviewed Ultrasound: Report Reviewed, Image Reviewed Assessment/Plan 37 yom with PMhx of asthma, prior DM (reportedly resolved with lifestyle modifications), ETOH abuse s/p detox admitted and drainage done RUL hepatic abscess asthma etoh abuse plan will start patient on zosyn monitor drainage and color in the bag await for cx reports rest as per the team
[2018-09-17] MEDS ORDERED: PNEUMOC 13-VAL CONJ-DIP CRM/PF 0.5 ML DISP.SYRIN IM ONE (15:39)
[2018-09-17] MEDS ORDERED: DEXTROSE 5%-WATER 100 ML IVPB ONE (18:00)
[2018-09-17] MEDS ORDERED: PNEUMOCOCCAL 23 VACCINE 0.5 ML VIAL IM ONE (18:00)
[2018-09-17] MEDS ORDERED: PIPERACILLIN/TAZOBACTAM 4.5 GM VIAL IVPB ONE (18:00)
[2018-09-17] MEDS ORDERED: PIPERACILLIN/TAZOB 3.375 GM 3.375 GM in DEXTROSE 5%-WATER - 50 ML IVPB SCH (18:00)
[2018-09-17] MEDS: PIPERACILLIN/TAZOB 4.5 GM 4.5 GM in DEXTROSE 5%-WATER 100 ML IVPB SCH (18:08)
[2018-09-18] MEDS: ACETAMINOPHEN 325 MG TABLET (FP) PO PRN ×2 (02:11→18:29)
[2018-09-18] MEDS ORDERED: DEXTROSE 5%-WATER 100 ML IVPB ONE ×2 (02:15→10:28)
[2018-09-18] MEDS ORDERED: PIPERACILLIN/TAZOBACTAM 4.5 GM VIAL IVPB ONE (02:15)
[2018-09-18] MEDS: PIPERACILLIN/TAZOB 4.5 GM 4.5 GM in DEXTROSE 5%-WATER 100 ML IVPB SCH (02:24)
[2018-09-18 07:19] LABS: BASO % 0.7 % (0-2.0); EOS % 2.1 % (0-4.5); HEMATOCRIT 36.5 % (35.4-49); HEMOGLOBIN 11.6 GM/dL (11.7-16.9); LYMPH % 27.8 % (8-40); MCH 26.1 pg (25.7-33.7); MCHC 31.8 g/dl (32.0-35.9); MEAN PLT VOLUME 7.2 fl (7.5-11.1); MONO % 10.3 % (3.8-10.2); NEUT % 59.1 % (42.8-82.8); PLATELET COUNT 299 K/MM3 (134-434); RBC 4.45 M/mm3 (4.00-5.60); WHITE BLOOD COUNT 8.4 K/mm3 (4.0-10.0)
[2018-09-18] MEDS: KETOROLAC TROMETHAMINE 15 MG/ML VIAL IVPUSH PRN ×2 (07:55→13:49)
[2018-09-18 08:08] LABS: ALBUMIN 2.8 g/dl (3.4-5.0); ALK PHOS 67 U/L (45-117); ANION GAP 7 MMOL/L (8-16); BILIRUBIN,TOTAL 0.6 mg/dL (0.2-1); BLOOD UREA NITROGEN 14 mg/dL (7-18); CALCIUM 8.4 mg/dL (8.5-10.1); CHLORIDE 104 mmol/L (98-107); CO2 27 mmol/L (21-32); CREATININE 0.9 mg/dL (0.55-1.3); GLUCOSE,RANDOM 116 mg/dL (74-106); MAGNESIUM 2.7 mg/dL (1.8-2.4); PHOSPHOROUS 4.5 mg/dL (2.5-4.9); SGOT/AST 16 U/L (15-37); SGPT/ALT 28 U/L (13-61); SODIUM 139 mmol/L (136-145)
--- NOTE | 2018-09-18 08:37 | PN ---
Progress Note (short form) - Note Progress Note: Pt is a 37 y/o M w/ PMhx asthma, prior DM (reportedly resolved with lifestyle modifications), ETOH abuse s/p detox admitted 09/16 with RUL hepatic mass, found to have perihepatic abscess, now s/p IR drainage. Pt reports feeling well today. States abdominal pain has greatly improved. Tolerating PO, voiding without issue. Has been oob. Denies cp, sob, n/v/d, calf pain/edema. Vital Signs Temp 98.1 F 09/18/18 05:55 Pulse 80 09/18/18 05:55 Resp 20 09/18/18 05:55 BP 113/72 09/18/18 05:55 Pulse Ox 97 09/17/18 21:00 Intake & Output 09/17/18 09/17/18 09/18/18 11:59 23:59 11:59 Intake Total 740 1200 Output Total 5 25 Balance 735 1175 Weight 181 lb Intake: IV 400 1100 D5-Lr - 1,000 ml @ 747 092 7112 mls/hr IV ASDIR PAUL Rx#: [id number] IVPB 100 100 Oral 240 Output: Drainage 5 25 Right Flank 5 25 Other: Voiding Method Toilet Toilet # Unmeasured Voids Void 3 Bowel Movement No Height 5 ft 10 in Body Mass Index (BMI) 25.9 CBC, BMP 09/18/18 06:30 09/18/18 06:30 Gen: awake, alert, nad Resp: unlabored Abdo: soft, nt/nd, Drain in place, dressing c/d/i. <5ml sersanguinous drainage in reservoir Plan: F/U cultures Continue abx per ID Attending consult to follow
--- NOTE | 2018-09-18 09:44 | PN ---
Progress Note, Physician History of Present Illness: patient stable wbc has trended down comfortable minimal drainage from the tube - Current Medication List Current Medications: Active Medications Acetaminophen (Tylenol -) 650 mg PO Q6H PRN PRN Reason: PAIN LEVEL 1-5 Last Admin: 09/18/18 02:11 Dose: 650 mg Folic Acid (Folic Acid -) 1 mg PO DAILY PAUL Dextrose/Lactated Ringer's (D5-Lr -) 1,000 mls @ 100 mls/hr IV ASDIR PAUL Last Admin: 09/17/18 10:58 Dose: 100 mls/hr Piperacillin Sod/Tazobactam (Sod 4.5 gm/ Dextrose) 100 mls @ 200 mls/hr IVPB Q8H-IV PAUL; Protocol Last Admin: 09/18/18 02:24 Dose: 200 mls/hr Ketorolac Tromethamine (Toradol Injection -) 15 mg IVPUSH Q6H PRN PRN Reason: PAIN LEVEL 6-10 Stop: 09/22/18 11:05 Last Admin: 09/18/18 07:55 Dose: 15 mg Multivitamins/Minerals/Vitamin C (Tab-A-Vit -) 1 tab PO DAILY PAUL Thiamine HCl (Vitamin B1 -) 100 mg PO DAILY PAUL - Objective Vital Signs: Vital Signs Temperature 98.3 F 09/18/18 08:53 Pulse Rate 88 09/18/18 08:53 Respiratory Rate 20 09/18/18 08:53 Blood Pressure 106/66 09/18/18 08:53 O2 Sat by Pulse Oximetry (%) 97 09/17/18 21:00 Constitutional: Yes: No Distress, Calm Cardiovascular: Yes: Regular Rate and Rhythm Respiratory: Yes: Regular, CTA Bilaterally Gastrointestinal: Yes: Normal Bowel Sounds, Soft, Other (drain in place) Musculoskeletal: Yes: WNL Extremities: Yes: WNL Neurological: Yes: Alert, Oriented Psychiatric: Yes: Alert, Oriented Labs: CBC, BMP 09/18/18 06:30 09/18/18 06:30 INR, PTT INR 1.30 (0.83-1.09) H 09/17/18 00:07 Assessment/Plan 37 yom with PMhx of asthma, prior DM (reportedly resolved with lifestyle modifications), ETOH abuse s/p detox admitted and drainage done RUL hepatic abscess asthma etoh abuse plan continue current abx await for cx report rest as per the team patient stable
[2018-09-18] MEDS ORDERED: PIPERACILLIN/TAZOB 3.375 GM 3.375 GM in DEXTROSE 5%-WATER 100 ML IVPB SCH (09:47)
[2018-09-18] MEDS: FOLIC ACID 1 MG TABLET (FP) PO SCH (09:56)
[2018-09-18] MEDS: THIAMINE HCL 100 MG TABLET (FP) PO SCH (09:56)
[2018-09-18] MEDS: MULTIVITAMINS (DAILY MVI) TABLET (FP) PO SCH (09:56)
[2018-09-18] MEDS ORDERED: PIPERACILLIN/TAZOBACTAM 3.375 GM VIAL IVPB ONE ×2 (10:28→17:24)
[2018-09-18] MEDS: PIPERACILLIN/TAZOB 3.375 GM 3.375 GM in DEXTROSE 5%-WATER - 50 ML IVPB SCH ×2 (10:32→17:30)
--- NOTE | 2018-09-18 13:10 | CONSULT ---
- Consultation REQUESTING PROVIDER: Raymundo LEON CONSULT REQUEST: We have been asked to surgically evaluate this patient for RUQ pain. PCP:Satinder Fonseca MD HISTORY OF PRESENT ILLNESS: 7 days of RUQ pain and fever; NOC; he came to the ER for evaluation; he had an uneventful lap jada 05/13/18 PMHx: ? asthma PSHx: lap ap 05/13/18 Home Medications Medication Instructions Recorded NK [No Known Home Medication] 07/31/18 Allergies Allergy/AdvReac Type Severity Reaction Status Date / Time No Known Allergies Allergy Verified 09/16/18 20:47 REVIEW OF SYSTEMS: CONSTITUTIONAL: Absent: fever, chills, diaphoresis, generalized weakness, malaise, loss of appetite, weight change CARDIOVASCULAR: Absent: chest pain, syncope, palpitations, irregular heart rate, lightheadedness , peripheral edema RESPIRATORY: Absent: cough, shortness of breath, dyspnea with exertion, wheezing, stridor, hemoptysis GASTROINTESTINAL: Absent: abdominal pain, abdominal distension, nausea, vomiting, diarrhea, constipation, melena, hematochezia GENITOURINARY: Absent: dysuria, frequency, urgency, hesitancy, hematuria, flank pain, genital pain MUSCULOSKELETAL: Absent: myalgia, arthralgia, joint swelling, back pain, neck pain SKIN: Absent: rash, itching, pallor HEMATOLOGIC/IMMUNOLOGIC: Absent: easy bleeding, easy bruising, lymphadenopathy NEUROLOGIC: Absent: headache, focal weakness, paresthesias, dizziness, unsteady gait, seizure, mental status changes, bladder or bowel incontinence PSYCHIATRIC: Absent: anxiety, depression, suicidal or homicidal ideation, hallucinations. PHYSICAL EXAM: GENERAL: Awake, alert, and fully oriented, in no acute distress. HEAD: Normal with no signs of trauma. EYES: PERRL, sclera anicteric, conjunctiva clear. NECK: Normal ROM, supple without lymphadenopathy, JVD, or masses. LUNGS: Clear to auscultation bilat anteriorly. No wheezes, and no crackles. No accessory muscle use. HEART: Regular rate and rhythm. No murmurs ABDOMEN: Softtender RUQ, not distended, normoactive bowel sounds, no guarding, no rebound, no masses. No organomegaly. healed port sites s/p lap ap; no hernias MUSCULOSKELETAL: Normal ROM at all joints. No bony deformities or tenderness. No CVA tenderness. UPPER EXTREMITIES: 2+ pulses, warm, well-perfused. No cyanosis. Cap refill <2 seconds. No peripheral edema. LOWER EXTREMITIES: 2+ pulses, warm, well-perfused. No calf tenderness. No peripheral edema. NEUROLOGICAL: Normal speech, gait not observed. PSYCH: Cooperative. Good eye contact. Appropriate mood and affect. SKIN: Warm, dry, normal turgor, no rashes or lesions noted. Vital Signs Temperature 98.3 F 09/18/18 08:53 Pulse Rate 88 09/18/18 08:53 Respiratory Rate 20 09/18/18 08:53 Blood Pressure 106/66 09/18/18 08:53 O2 Sat by Pulse Oximetry (%) 97 09/17/18 21:00 Lab Results WBC 8.4 K/mm3 (4.0-10.0) 09/18/18 06:30 RBC 4.45 M/mm3 (4.00-5.60) 09/18/18 06:30 Hgb 11.6 GM/dL (11.7-16.9) L 09/18/18 06:30 Hct 36.5 % (35.4-49) 09/18/18 06:30 MCV 82.0 fl (80-96) 09/18/18 06:30 MCHC 31.8 g/dl (32.0-35.9) L 09/18/18 06:30 RDW 15.0 % (11.9-15.9) 09/18/18 06:30 Plt Count 299 K/MM3 (134-434) 09/18/18 06:30 Sodium 139 mmol/L (136-145) 09/18/18 06:30 Potassium 4.0 mmol/L (3.5-5.1) 09/18/18 06:30 Chloride 104 mmol/L (98-107) 09/18/18 06:30 Carbon Dioxide 27 mmol/L (21-32) 09/18/18 06:30 Anion Gap 7 MMOL/L (8-16) L 09/18/18 06:30 BUN 14 mg/dL (7-18) 09/18/18 06:30 Creatinine 0.9 mg/dL (0.55-1.3) 09/18/18 06:30 Random Glucose 116 mg/dL (74-106) H 09/18/18 06:30 Calcium 8.4 mg/dL (8.5-10.1) L 09/18/18 06:30 INR 1.30 (0.83-1.09) H 09/17/18 00:07 CT/US -4eviewed IMP: hepatic abscess PLAN: IR drainage; IVAB's will f/u. Kalpesh Godwin MD FACS
[2018-09-18] MEDS: DEXTROSE 5%-LACTATED RINGERS 1,000 ML IV SCH (13:43)
--- NOTE | 2018-09-18 14:34 | PN ---
Teaching Attending Note Name of Resident: Ya Antunez ATTENDING PHYSICIAN STATEMENT I saw and evaluated the patient. I reviewed the resident's note and discussed the case with the resident. I agree with the resident's findings and plan as documented with exceptions below. SUBJECTIVE: Patient seen and examined. Denies any new fevers, chills, abdominal pain today. Tolerating diet well. OBJECTIVE: Vital Signs Period Temp Pulse Resp BP Sys/Farfan Pulse Ox Last 24 Hr 98 F-98.3 F 80-91 20-20 106-113/64-72 97-97 Intake & Output 09/15/18 09/16/18 09/17/18 09/18/18 23:59 23:59 23:59 23:59 Intake Total 740 1700 Output Total 5 25 Balance 735 1675 Weight 181 lb 181 lb General: lying in bed in no acute distress Abdomen:Soft, no tenderness throughout, no voluntary or involuntary guarding or rigidity, positive bowel sounds drain with sanguinous fluid Chest: CTAB, no rales or wheezing Extremities: no edema Active Medications Acetaminophen (Tylenol -) 650 mg PO Q6H PRN PRN Reason: PAIN LEVEL 1-5 Last Admin: 09/18/18 02:11 Dose: 650 mg Folic Acid (Folic Acid -) 1 mg PO DAILY [facility] Last Admin: 09/18/18 09:56 Dose: 1 mg Dextrose/Lactated Ringer's (D5-Lr -) 1,000 mls @ 100 mls/hr IV ASDIR PAUL Last Admin: 09/18/18 13:43 Dose: 100 mls/hr Piperacillin Sod/Tazobactam (Sod 3.375 gm/ Dextrose) 50 mls @ 100 mls/hr IVPB Q8H-IV PAUL; Protocol Last Admin: 09/18/18 10:32 Dose: 100 mls/hr Ketorolac Tromethamine (Toradol Injection -) 15 mg IVPUSH Q6H PRN PRN Reason: PAIN LEVEL 6-10 Stop: 09/22/18 11:05 Last Admin: 09/18/18 13:49 Dose: 15 mg Multivitamins/Minerals/Vitamin C (Tab-A-Vit -) 1 tab PO DAILY [facility] Last Admin: 09/18/18 09:56 Dose: 1 tab Thiamine HCl (Vitamin B1 -) 100 mg PO DAILY [facility] Last Admin: 09/18/18 09:56 Dose: 100 mg Laboratory Results - last 24 hr 09/18/18 09/18/18 06:30 06:30 WBC 8.4 RBC 4.45 Hgb 11.6 L Hct 36.5 MCV 82.0 MCH 26.1 MCHC 31.8 L RDW 15.0 Plt Count 299 MPV 7.2 L Absolute Neuts (auto) 5.0 Neutrophils % 59.1 Lymphocytes % 27.8 D Monocytes % 10.3 H Eosinophils % 2.1 D Basophils % 0.7 Nucleated RBC % 0 Sodium 139 Potassium 4.0 Chloride 104 Carbon Dioxide 27 Anion Gap 7 L BUN 14 Creatinine 0.9 Creat Clearance w eGFR > 60 Random Glucose 116 H Calcium 8.4 L Phosphorus 4.5 Magnesium 2.7 H Total Bilirubin 0.6 AST 16 ALT 28 Alkaline Phosphatase 67 Total Protein 7.0 Albumin 2.8 L Microbiology 09/17/18 07:53 Abscess Gram Stain - Final 09/17/18 07:53 Abscess Body Fluid Culture - Preliminary Lactose Fermenting Neg Bacilli Lactose Fermenting Neg Bacilli#2 09/17/18 09:53 Abscess TAMIKO Preparation - Preliminary 09/17/18 09:53 Abscess Fungal Culture - Preliminary 09/16/18 00:28 Blood - Peripheral Venous Blood Culture - Preliminary NO GROWTH OBTAINED AFTER 24 HOURS, INCUBATION TO CONTINUE FOR 4 DAYS. 09/16/18 00:28 Blood - Peripheral Venous Blood Culture - Preliminary NO GROWTH OBTAINED AFTER 24 HOURS, INCUBATION TO CONTINUE FOR 4 DAYS. ASSESSMENT AND PLAN: 37 yom with PMhx of asthma, prior DM (reportedly resolved with lifestyle modifications), ETOH abuse s/p detox,recent lap appendectomy admitted with RUL hepatic mass suspicious for abscess. -RUL hepatic abscess s/p IR guided drain placement 09/16 (initially drainage of thick brown fluid suggestive of pus, now sanguinous) -Recent laparoscopic appendectomy -ETOH abuse s/p detox -Prior reported DM -Asthma Plan: Markedly improved, tolerating diet well. D/c iVF Wound cultures with gnb. COntinue zosyn day 2. ID input noted. Surgery input noted. Pain control with tylenol/toradol. HIV screen neg. Follow up hep panel. Drug screen. Patient reports clean since detox, had few drinks on thanksgiving, none otherwise. Folate/thiamine, IVF, Monitor for withdrawal symptoms, none currently. DVTPPX lovenox Dispo pending clinical improvement. Plan discussed with patient in detail, all questions answered.
--- NOTE | 2018-09-18 14:37 | PN ---
Physical Exam: SUBJECTIVE: Patient seen and examined OBJECTIVE: Vital Signs Period Temp Pulse Resp BP Sys/Farfan Pulse Ox Last 24 Hr 98 F-98.3 F 80-91 20-20 106-113/64-72 97-97 GENERAL: The patient is awake, alert, and fully oriented, in no acute distress. HEAD: Normal with no signs of trauma. EYES: PERRL, extraocular movements intact, sclera anicteric, conjunctiva clear. No ptosis. ENT: Ears normal, nares patent, oropharynx clear without exudates, moist mucous membranes. NECK: Trachea midline, full range of motion, supple. LUNGS: Breath sounds equal, clear to auscultation bilaterally, no wheezes, no crackles, no accessory muscle use. HEART: Regular rate and rhythm, S1, S2 without murmur, rub or gallop. ABDOMEN: Soft, nontender, nondistended, normoactive bowel sounds, no guarding, no rebound, no hepatosplenomegaly, no masses. EXTREMITIES: 2+ pulses, warm, well-perfused, no edema. NEUROLOGICAL: Cranial nerves II through XII grossly intact. Normal speech, gait not observed. PSYCH: Normal mood, normal affect. SKIN: Warm, dry, normal turgor, no rashes or lesions noted Laboratory Results - last 24 hr 09/18/18 09/18/18 06:30 06:30 WBC 8.4 RBC 4.45 Hgb 11.6 L Hct 36.5 MCV 82.0 MCH 26.1 MCHC 31.8 L RDW 15.0 Plt Count 299 MPV 7.2 L Absolute Neuts (auto) 5.0 Neutrophils % 59.1 Lymphocytes % 27.8 D Monocytes % 10.3 H Eosinophils % 2.1 D Basophils % 0.7 Nucleated RBC % 0 Sodium 139 Potassium 4.0 Chloride 104 Carbon Dioxide 27 Anion Gap 7 L BUN 14 Creatinine 0.9 Creat Clearance w eGFR > 60 Random Glucose 116 H Calcium 8.4 L Phosphorus 4.5 Magnesium 2.7 H Total Bilirubin 0.6 AST 16 ALT 28 Alkaline Phosphatase 67 Total Protein 7.0 Albumin 2.8 L Active Medications Generic Name Dose Route Start Last Admin Trade Name Freq PRN Reason Stop Dose Admin Acetaminophen 650 mg 09/17/18 11:06 09/18/18 02:11 Tylenol - PO 650 mg Q6H PRN Administration PAIN LEVEL 1-5 Folic Acid 1 mg 09/18/18 10:00 09/18/18 09:56 Folic Acid - PO 1 mg DAILY [facility] Administration Dextrose/Lactated Ringer's 1,000 mls @ 100 mls/hr 09/17/18 08:00 09/18/18 13: 43 D5-Lr - IV 100 mls/hr ASDIR PAUL Administration Piperacillin Sod/Tazobactam 50 mls @ 100 mls/hr 09/18/18 10:31 09/18/18 10:32 Sod 3.375 gm/ Dextrose IVPB 100 mls/hr Q8H-IV PAUL Administration Protocol Ketorolac Tromethamine 15 mg 09/17/18 11:06 09/18/18 13:49 Toradol Injection - IVPUSH 09/22/18 11:05 15 mg Q6H PRN Administration PAIN LEVEL 6-10 Multivitamins/Minerals/Vitamin C 1 tab 09/18/18 10:00 09/18/18 09:56 Tab-A-Vit - PO 1 tab DAILY PA[facility] Administration Thiamine HCl 100 mg 09/18/18 10:00 09/18/18 09:56 Vitamin B1 - PO 100 mg DAILY PA[facility] Administration ASSESSMENT/PLAN: 37 y/o male with PMH of asthma, DM, alcohol depedence presents to the ED for RUQ pain for the past 7 days found to most likely have a hepatic abcess. #Hepatic Abcess hepatic abcess found on CT scan with extrahepatic extension -patient got abcess drained yesterday by IR -prelim cx growing lactose fermenting negative bacilli -fungal vc still pending -Zosyn for abx coverage -will re-image liver in 24 hours to see if there is a new abcess collection since bag is draining minimal amounts of thick brown liquid -tylenol/toradol for pain #Alcohol Use -thiamine and folate, multivitamin -monitor electrolytes -weight loss counselor about cessation/detox F/E/N LR @100mls/hr monitor electrolytes regular diet DVT PPX: lovenox 40 SQ Visit type - Emergency Visit Emergency Visit: Yes ED Registration Date: 09/16/18 Care time: The patient presented to the Emergency Department on the above date and was hospitalized for further evaluation of their emergent condition. - New Patient This patient is new to me today: No - Critical Care Critical Care patient: No
[2018-09-18 16:16] LABS: HEP.C VIRUS AB 0.2 s/co ratio (0.0-0.9)
[2018-09-18] MEDS ORDERED: DEXTROSE 5%-WATER - 50 ML IVPB ONE (17:24)
[2018-09-18 18:03] LABS: COCAINE, UR NEGATIVE ng/ml (CUTOFF=300); METHADONE, UR NEGATIVE ng/ml (CUTOFF=300); PHENCYCLIDINE,URINE NEGATIVE ng/ml (CUTOFF=25); URINE AMPHETAMINES NEGATIVE ng/ml (CUTOFF=500); URINE BARBITURATES NEGATIVE ng/ml (CUTOFF=200); URINE BENZODIAZEPINES NEGATIVE ng/ml (CUTOFF=200)
[2018-09-18 18:04] LABS: OPIATES, URI NEGATIVE ng/ml (CUTOFF=300)
[2018-09-19] MEDS: KETOROLAC TROMETHAMINE 15 MG/ML VIAL IVPUSH PRN ×3 (01:00→23:46)
[2018-09-19] MEDS ORDERED: DEXTROSE 5%-WATER - 50 ML IVPB ONE ×3 (01:48→16:47)
[2018-09-19] MEDS ORDERED: PIPERACILLIN/TAZOBACTAM 3.375 GM VIAL IVPB ONE ×3 (01:48→16:47)
[2018-09-19] MEDS: PIPERACILLIN/TAZOB 3.375 GM 3.375 GM in DEXTROSE 5%-WATER - 50 ML IVPB SCH ×3 (01:51→17:30)
[2018-09-19 07:15] LABS: HEMATOCRIT 32.8 % (35.4-49); HEMOGLOBIN 11.4 GM/dL (11.7-16.9); MCH 28.2 pg (25.7-33.7); MCHC 34.7 g/dl (32.0-35.9); MEAN CELL VOLUME 81.2 fl (80-96); MEAN PLT VOLUME 7.2 fl (7.5-11.1); PLATELET COUNT 344 K/MM3 (134-434); RBC 4.04 M/mm3 (4.00-5.60); RDW 14.8 % (11.9-15.9); WHITE BLOOD COUNT 7.8 K/mm3 (4.0-10.0)
[2018-09-19 07:39] LABS: ANION GAP 7 MMOL/L (8-16); BLOOD UREA NITROGEN 12 mg/dL (7-18); CALCIUM 8.6 mg/dL (8.5-10.1); CHLORIDE 104 mmol/L (98-107); CO2 28 mmol/L (21-32); CREATININE 0.9 mg/dL (0.55-1.3); GLUCOSE,RANDOM 108 mg/dL (74-106); MAGNESIUM 2.4 mg/dL (1.8-2.4); PHOSPHOROUS 4.6 mg/dL (2.5-4.9); POTASSIUM 4.1 mmol/L (3.5-5.1); SODIUM 139 mmol/L (136-145)
--- NOTE | 2018-09-19 09:16 | PN ---
Progress Note (short form) - Note Progress Note: Pt having referred pain to right shoulder. Unachaged from admission, it intermittently improves with oral medication. Vital Signs Period Temp Pulse Resp BP Sys/Farfan Pulse Ox Last 24 Hr 98.3 F-98.3 F 85-89 20-20 111-124/63-73 96 LOBO:13 ml light brown GEN: A&0x3, NAD ABD: soft, non-distended, non-tender CBC, BMP 09/19/18 06:30 09/19/18 06:30 Microbiology 09/17/18 07:53 Abscess Gram Stain - Final 09/17/18 07:53 Abscess Body Fluid Culture - Preliminary Lactose Fermenting Neg Bacilli Lactose Fermenting Neg Bacilli#2 09/16/18 00:28 Blood - Peripheral Venous Blood Culture - Preliminary NO GROWTH OBTAINED AFTER 48 HOURS, INCUBATION TO CONTINUE FOR 3 DAYS. 09/16/18 00:28 Blood - Peripheral Venous Blood Culture - Preliminary NO GROWTH OBTAINED AFTER 48 HOURS, INCUBATION TO CONTINUE FOR 3 DAYS. A/p: 37 yo male s/p IR drainage of right hepatic lobe abscess Continue drain to bile bag Awaiting culture sensitivity Diet as tolerated IV abx to oral as per ID Will need repeat CT scan in two days to evaluate the collection D/w Dr. Godwin
[2018-09-19] MEDS: FOLIC ACID 1 MG TABLET (FP) PO SCH (09:53)
[2018-09-19] MEDS: THIAMINE HCL 100 MG TABLET (FP) PO SCH (09:53)
[2018-09-19] MEDS: MULTIVITAMINS (DAILY MVI) TABLET (FP) PO SCH (09:53)
--- NOTE | 2018-09-19 11:20 | PN ---
Progress Note, Physician History of Present Illness: patient stable no new issues - Current Medication List Current Medications: Active Medications Acetaminophen (Tylenol -) 650 mg PO Q6H PRN PRN Reason: PAIN LEVEL 1-5 Last Admin: 09/18/18 18:29 Dose: 650 mg Folic Acid (Folic Acid -) 1 mg PO DAILY [facility] Last Admin: 09/19/18 09:53 Dose: 1 mg Piperacillin Sod/Tazobactam (Sod 3.375 gm/ Dextrose) 50 mls @ 100 mls/hr IVPB Q8H-IV PAUL; Protocol Last Admin: 09/19/18 09:53 Dose: 100 mls/hr Ketorolac Tromethamine (Toradol Injection -) 15 mg IVPUSH Q6H PRN PRN Reason: PAIN LEVEL 6-10 Stop: 09/22/18 11:05 Last Admin: 09/19/18 07:48 Dose: 15 mg Multivitamins/Minerals/Vitamin C (Tab-A-Vit -) 1 tab PO DAILY [facility] Last Admin: 09/19/18 09:53 Dose: 1 tab Thiamine HCl (Vitamin B1 -) 100 mg PO DAILY [facility] Last Admin: 09/19/18 09:53 Dose: 100 mg - Objective Vital Signs: Vital Signs Temperature 98.3 F 09/19/18 08:44 Pulse Rate 89 09/19/18 08:44 Respiratory Rate 20 09/19/18 08:44 Blood Pressure 111/63 09/19/18 08:44 O2 Sat by Pulse Oximetry (%) 96 09/19/18 09:00 Constitutional: Yes: No Distress, Calm Cardiovascular: Yes: Regular Rate and Rhythm Respiratory: Yes: Regular, CTA Bilaterally Gastrointestinal: Yes: Normal Bowel Sounds, Soft, Other (drainage tube present) Musculoskeletal: Yes: WNL Extremities: Yes: WNL Neurological: Yes: Alert, Oriented Psychiatric: Yes: Alert, Oriented Labs: CBC, BMP 09/19/18 06:30 09/19/18 06:30 INR, PTT INR 1.30 (0.83-1.09) H 09/17/18 00:07 Assessment/Plan 37 yom with PMhx of asthma, prior DM (reportedly resolved with lifestyle modifications), ETOH abuse s/p detox admitted and drainage done RUL hepatic abscess asthma etoh abuse plan continue current abx bacterial cx report noted await for other cx reports to be back rest as per the team patient stable
--- NOTE | 2018-09-19 13:04 | PN ---
Physical Exam: SUBJECTIVE: Patient seen and examined at bedside- no acute events overnight. patient is feeling well; he is not really having any abdominal pain but is having shoulder pain; drank put out 33ml of dark brown liquid overnight he denies any CP.SOB/N/V/abdominal pain or fevers OBJECTIVE: Vital Signs Period Temp Pulse Resp BP Sys/Farfan Pulse Ox Last 24 Hr 98.3 F-98.3 F 85-89 20-20 111-124/63-73 96-96 GENERAL: The patient is awake, alert, and fully oriented, in no acute distress. EYES: no scleral icterus. NECK: no JVD , no lymphadenopathy LUNGS: CTA B/L; no rales, rhonchi or wheezing HEART: Regular rate and rhythm, S1, S2 without murmur, rub or gallop. ABDOMEN: Soft, nontender, nondistended, normoactive bowel sounds, no guarding, no rebound, no hepatosplenomegaly, no masses. EXTREMITIES: 2+ pulses, warm, well-perfused, no edema. SKIN: Warm, dry, normal turgor, no rashes or lesions noted Laboratory Results - last 24 hr 09/17/18 09/18/18 09/19/18 11:53 16:54 06:30 WBC 7.8 RBC 4.04 Hgb 11.4 L Hct 32.8 L MCV 81.2 MCH 28.2 MCHC 34.7 RDW 14.8 Plt Count 344 MPV 7.2 L Sodium Potassium Chloride Carbon Dioxide Anion Gap BUN Creatinine Creat Clearance w eGFR Random Glucose Calcium Phosphorus Magnesium Opiates Screen Negative Methadone Screen Negative Barbiturate Screen Negative Phencyclidine Screen Negative Ur Amphetamines Screen Negative MDMA (Ecstasy) Screen Negative Benzodiazepines Screen Negative Cocaine Screen Negative U Marijuana (THC) Screen Negative Hepatitis A IgM Ab Negative Hep Bs Antigen Negative Hep B Core IgM Ab Negative Hepatitis C Antibody 0.2 09/19/18 06:30 WBC RBC Hgb Hct MCV MCH MCHC RDW Plt Count MPV Sodium 139 Potassium 4.1 Chloride 104 Carbon Dioxide 28 Anion Gap 7 L BUN 12 Creatinine 0.9 Creat Clearance w eGFR > 60 Random Glucose 108 H Calcium 8.6 Phosphorus 4.6 Magnesium 2.4 Opiates Screen Methadone Screen Barbiturate Screen Phencyclidine Screen Ur Amphetamines Screen MDMA (Ecstasy) Screen Benzodiazepines Screen Cocaine Screen U Marijuana (THC) Screen Hepatitis A IgM Ab Hep Bs Antigen Hep B Core IgM Ab Hepatitis C Antibody Active Medications Generic Name Dose Route Start Last Admin Trade Name Freq PRN Reason Stop Dose Admin Acetaminophen 650 mg 09/17/18 11:06 09/18/18 18:29 Tylenol - PO 650 mg Q6H PRN Administration PAIN LEVEL 1-5 Folic Acid 1 mg 09/18/18 10:00 09/19/18 09:53 Folic Acid - PO 1 mg DAILY PAUL Administration Piperacillin Sod/Tazobactam 50 mls @ 100 mls/hr 09/18/18 10:31 09/19/18 09:53 Sod 3.375 gm/ Dextrose IVPB 100 mls/hr Q8H-IV PAUL Administration Protocol Ketorolac Tromethamine 15 mg 09/17/18 11:06 09/19/18 07:48 Toradol Injection - IVPUSH 09/22/18 11:05 15 mg Q6H PRN Administration PAIN LEVEL 6-10 Multivitamins/Minerals/Vitamin C 1 tab 09/18/18 10:00 09/19/18 09:53 Tab-A-Vit - PO 1 tab DAILY [facility] Administration Thiamine HCl 100 mg 09/18/18 10:00 09/19/18 09:53 Vitamin B1 - PO 100 mg DAILY [facility] Administration ASSESSMENT/PLAN: 37 y/o male with PMH of asthma, DM, alcohol depedence presents to the ED for RUQ pain for the past 7 days found to most likely have a hepatic abcess. #Hepatic Abcess hepatic abcess found on CT scan with extrahepatic extension -patient got abcess drained by IR -cx growing E-Coli -cx pansensitive- -will re-image liver in 48 hours to see if there is a new abcess collection since bag is draining minimal amounts of thick brown liquid -tylenol/toradol for pain #Alcohol Use -thiamine and folate, multivitamin -monitor electrolytes -insurance counselor about cessation/detox F/E/N LR @100mls/hr monitor electrolytes regular diet DVT PPX: lovenox 40 SQ Problem List - Problems (1) Hepatic abscess Code(s): K75.0 - ABSCESS OF LIVER (2) Alcohol dependence with uncomplicated withdrawal Code(s): F10.230 - ALCOHOL DEPENDENCE WITH WITHDRAWAL, UNCOMPLICATED Visit type - Emergency Visit Emergency Visit: Yes ED Registration Date: 11/24/18 Care time: The patient presented to the Emergency Department on the above date and was hospitalized for further evaluation of their emergent condition. - New Patient This patient is new to me today: No - Critical Care Critical Care patient: No
--- NOTE | 2018-09-19 13:26 | PN ---
Teaching Attending Note Name of Resident: Ya Antunez ATTENDING PHYSICIAN STATEMENT I saw and evaluated the patient. I reviewed the resident's note and discussed the case with the resident. I agree with the resident's findings and plan as documented. SUBJECTIVE:asymptomatic. denies CP, SOB, fever, chills, N/V/C/D. states he was in normal state of health prior to arrival. did not have frequent infections. was born in [place] and came to the [facility] 16 years ago and has not been back since OBJECTIVE: Last Vital Signs Temp Pulse Resp BP Pulse Ox 98.3 F 89 20 111/63 96 09/19/18 08:44 09/19/18 08:44 09/19/18 08:44 09/19/18 08:44 09/19/18 09:00 General NAD CV S1 S2 RRR no murmur/rub/gallop Lungs CTA B/L no wheezing/rales/rhonchi Abdomen soft NT/ND +LOBO drain with minimal bile secretions ASSESSMENT AND PLAN: 37 yo M with PMhx of asthma, prior DM (reportedly resolved with lifestyle modifications), ETOH abuse s/p detox,recent lap appendectomy admitted with RUL hepatic mass suspicious for abscess. 1. RUL hepatic abscess- s/p IR guided drain placement 09/16. clinically improved. Cx is +. will await organism. On zosyn day 4. drain management per surgical team. will need repeat imaging to assess if abscess has fully resolved. eosinophils are low and will Cx growing bacterial would likely not need to investigate parasitic infection. hep panel negative. HIV negative 2. Recent laparoscopic appendectomy- spoke with surgeon. pathology showed appendix and surgery had no complications. low risk for relation to hepatic abscess 3. remote ETOH abuse- with recent detox. no sign of withdrawal here. cont AA and outpatient support 4. Prior reported DM- A1c 6.2. cont diet control. no need for medications at this time. 5. Asthma 6. DVT ppx- unclear why not on anticoagulation. start lovenox.
[2018-09-19] MEDS: ENOXAPARIN NA (PORCINE) 40 MG/0.4 ML DISP.SYRIN SQ SCH (14:37)
[2018-09-20] MEDS ORDERED: DEXTROSE 5%-WATER - 50 ML IVPB ONE ×3 (01:29→17:16)
[2018-09-20] MEDS ORDERED: PIPERACILLIN/TAZOBACTAM 3.375 GM VIAL IVPB ONE ×3 (01:29→17:16)
[2018-09-20] MEDS: PIPERACILLIN/TAZOB 3.375 GM 3.375 GM in DEXTROSE 5%-WATER - 50 ML IVPB SCH ×3 (01:41→17:44)
--- NOTE | 2018-09-20 07:59 | PN ---
Progress Note (short form) - Note Progress Note: Day #3 s/p IR drain placement 2/2 hepatic abscess Alert. States he's doing much better today compared to when admitted. Still c/o mild/intermittent right shoulder discofort but greatly improved since yesterday. He is up and OOB ambulating unassisted. Tolerating reg diet. Denies n/v/f/c, CP or SOB. Last Vital Signs Temp Pulse Resp BP Pulse Ox 98.3 F 76 20 109/62 97 09/20/18 05:50 09/20/18 05:50 09/20/18 05:50 09/20/18 05:50 09/19/18 21:00 Microbiology 09/16/18 00:28 Blood - Peripheral Venous Blood Culture - Prelim NO GROWTH OBTAINED AFTER 72hrs, INCUBATION TO CONT x2 days 09/16/18 00:28 Blood - Peripheral Venous Blood Culture - Prelim NO GROWTH OBTAINED AFTER 72hrs, INCUBATION TO CONT x2 days 09/17/18 07:53 Abscess Gram Stain - Final 09/17/18 07:53 Abscess Body Fluid Culture - Final Escherichia Coli 09/17/18 07:53 Abscess Anaerobic Culture - Prelim Pending PE Gen: nad ABD: soft. non-tender. non-distended. Right flank drain to bile bag (brown) LE: soft. non-teder. no edema Problem List - Problems (1) Hepatic abscess Assessment/Plan: 37 yo male s/p IR drainage of right hepatic lobe abscess 1. Cont drain to bile bag 2. Cont aggressive mobilization 3. Cont diet as tolerated 4. Awaiting ID recommendation to change abx from IV to PO 5. ABD CT ordered for 09/21/18 6. f/u morning labs Above plan discussed with Dr. Godwin and agrees. Code(s): K75.0 - ABSCESS OF LIVER
[2018-09-20 08:22] LABS: HEMATOCRIT 35.6 % (35.4-49); HEMOGLOBIN 11.7 GM/dL (11.7-16.9); MCH 26.7 pg (25.7-33.7); MCHC 32.9 g/dl (32.0-35.9); MEAN CELL VOLUME 81.2 fl (80-96); MEAN PLT VOLUME 7.2 fl (7.5-11.1); PLATELET COUNT 381 K/MM3 (134-434); RBC 4.38 M/mm3 (4.00-5.60); RDW 15.1 % (11.9-15.9); WHITE BLOOD COUNT 8.3 K/mm3 (4.0-10.0)
--- NOTE | 2018-09-20 08:42 | PN ---
Physical Exam: SUBJECTIVE: Patient seen and examined at bedside. no acute events overnight; patient is feeling better hes not ins any pain; he denies any CP/SOB/N/V fevers or chills. output from drain put out 8ml overnight. complains of an episode of dark stool- will do rectal exam OBJECTIVE: Vital Signs Period Temp Pulse Resp BP Sys/Farfan Pulse Ox Last 24 Hr 98.1 F-98.3 F 76-89 18-20 109-117/56-63 96-97 GENERAL: The patient is awake, alert, and fully oriented, in no acute distress. EYES: no scleral icterus NECK: no JVD, no lymphadenopathy LUNGS: CTA B/L; no rales, rhonchi or wheezing HEART: Regular rate and rhythm, S1, S2 without murmur, rub or gallop. ABDOMEN: Soft, nontender, nondistended, normoactive bowel sounds, no guarding, no rebound, no hepatosplenomegaly, no masses. RECTAL EXAM: no external hemorrhoids, +stool in rectal vault, no masses/lesions palpable EXTREMITIES: 2+ pulses, warm, well-perfused, no edema. . SKIN: Warm, dry, normal turgor, no rashes or lesions noted Laboratory Results - last 24 hr 09/20/18 07:18 WBC 8.3 RBC 4.38 Hgb 11.7 Hct 35.6 MCV 81.2 MCH 26.7 MCHC 32.9 RDW 15.1 Plt Count 381 MPV 7.2 L Active Medications Generic Name Dose Route Start Last Admin Trade Name Freq PRN Reason Stop Dose Admin Acetaminophen 650 mg 09/17/18 11:06 09/18/18 18:29 Tylenol - PO 650 mg Q6H PRN Administration PAIN LEVEL 1-5 Enoxaparin Sodium 40 mg 09/19/18 14:30 09/19/18 14:37 Lovenox - SQ 40 mg DAILY [facility] Administration Folic Acid 1 mg 09/18/18 10:00 09/19/18 09:53 Folic Acid - PO 1 mg DAILY [facility] Administration Piperacillin Sod/Tazobactam 50 mls @ 100 mls/hr 09/18/18 10:31 09/20/18 01:41 Sod 3.375 gm/ Dextrose IVPB 100 mls/hr Q8H-IV PAUL Administration Protocol Ketorolac Tromethamine 15 mg 09/17/18 11:06 09/19/18 23:46 Toradol Injection - IVPUSH 09/22/18 11:05 15 mg Q6H PRN Administration PAIN LEVEL 6-10 Multivitamins/Minerals/Vitamin C 1 tab 09/18/18 10:00 09/19/18 09:53 Tab-A-Vit - PO 1 tab DAILY [facility] Administration Thiamine HCl 100 mg 09/18/18 10:00 09/19/18 09:53 Vitamin B1 - PO 100 mg DAILY [facility] Administration ASSESSMENT/PLAN: 37 y/o male with PMH of asthma, DM, alcohol depedence presents to the ED for RUQ pain for the past 7 days found to most likely have a hepatic abcess. #Hepatic Abcess hepatic abcess found on CT scan with extrahepatic extension -patient got abcess drained by IR -one cx growing E-Coli; awaiting sensitivity of other bug -cx pansensitive- -will re-image liver tomorrow to see if there is a new abcess collection since bag is draining minimal amounts of thick brown liquid -tylenol/toradol for pain #Alcohol Use -thiamine and folate, multivitamin -monitor electrolytes -drug and alcohol counsellor about cessation/detox F/E/N LR @100mls/hr monitor electrolytes regular diet DVT PPX: lovenox 40 SQ Problem List - Problems (1) Hepatic abscess Code(s): K75.0 - ABSCESS OF LIVER (2) Alcohol dependence with uncomplicated withdrawal Code(s): F10.230 - ALCOHOL DEPENDENCE WITH WITHDRAWAL, UNCOMPLICATED Visit type - Emergency Visit Emergency Visit: Yes ED Registration Date: 09/16/18 Care time: The patient presented to the Emergency Department on the above date and was hospitalized for further evaluation of their emergent condition. - New Patient This patient is new to me today: No - Critical Care Critical Care patient: No
[2018-09-20 08:48] LABS: ALK PHOS 76 U/L (45-117); ANION GAP 8 MMOL/L (8-16); BILIRUBIN,TOTAL 0.2 mg/dL (0.2-1); BLOOD UREA NITROGEN 12 mg/dL (7-18); CALCIUM 8.9 mg/dL (8.5-10.1); CHLORIDE 102 mmol/L (98-107); CO2 28 mmol/L (21-32); CREATININE 1.1 mg/dL (0.55-1.3); GLUCOSE,RANDOM 113 mg/dL (74-106); MAGNESIUM 2.5 mg/dL (1.8-2.4); POTASSIUM 4.2 mmol/L (3.5-5.1); SGOT/AST 32 U/L (15-37); SGPT/ALT 70 U/L (13-61); SODIUM 138 mmol/L (136-145); TOT PROT 7.6 g/dl (6.4-8.2)
[2018-09-20] MEDS: ENOXAPARIN NA (PORCINE) 40 MG/0.4 ML DISP.SYRIN SQ SCH ×2 (10:29→10:33)
[2018-09-20] MEDS: THIAMINE HCL 100 MG TABLET (FP) PO SCH (10:30)
[2018-09-20] MEDS: MULTIVITAMINS (DAILY MVI) TABLET (FP) PO SCH (10:30)
[2018-09-20] MEDS: FOLIC ACID 1 MG TABLET (FP) PO SCH (10:30)
--- NOTE | 2018-09-20 12:11 | PN ---
Progress Note, Physician History of Present Illness: stable no new issues - Current Medication List Current Medications: Active Medications Acetaminophen (Tylenol -) 650 mg PO Q6H PRN PRN Reason: PAIN LEVEL 1-5 Last Admin: 09/18/18 18:29 Dose: 650 mg Enoxaparin Sodium (Lovenox -) 40 mg SQ DAILY [facility] Last Admin: 09/20/18 10:33 Dose: Not Given Folic Acid (Folic Acid -) 1 mg PO DAILY [facility] Last Admin: 09/20/18 10:30 Dose: 1 mg Piperacillin Sod/Tazobactam (Sod 3.375 gm/ Dextrose) 50 mls @ 100 mls/hr IVPB Q8H-IV PAUL; Protocol Last Admin: 09/20/18 10:29 Dose: 100 mls/hr Ketorolac Tromethamine (Toradol Injection -) 15 mg IVPUSH Q6H PRN PRN Reason: PAIN LEVEL 6-10 Stop: 09/22/18 11:05 Last Admin: 09/19/18 23:46 Dose: 15 mg Multivitamins/Minerals/Vitamin C (Tab-A-Vit -) 1 tab PO DAILY [facility] Last Admin: 09/20/18 10:30 Dose: 1 tab Thiamine HCl (Vitamin B1 -) 100 mg PO DAILY [facility] Last Admin: 09/20/18 10:30 Dose: 100 mg - Objective Vital Signs: Vital Signs Temperature 98.3 F 09/20/18 05:50 Pulse Rate 76 09/20/18 05:50 Respiratory Rate 20 09/20/18 05:50 Blood Pressure 109/62 09/20/18 05:50 O2 Sat by Pulse Oximetry (%) 97 09/19/18 21:00 Constitutional: Yes: No Distress, Calm Cardiovascular: Yes: Regular Rate and Rhythm Respiratory: Yes: Regular, CTA Bilaterally Gastrointestinal: Yes: Normal Bowel Sounds, Soft Musculoskeletal: Yes: WNL Extremities: Yes: WNL Labs: CBC, BMP 09/20/18 07:18 09/20/18 07:18 INR, PTT INR 1.30 (0.83-1.09) H 09/17/18 00:07 Assessment/Plan 37 yom with PMhx of asthma, prior DM (reportedly resolved with lifestyle modifications), ETOH abuse s/p detox admitted and drainage done RUL hepatic abscess asthma etoh abuse plan continue current abx bacterial cx report noted await for other cx reports to be back rest as per the team patient stable
--- NOTE | 2018-09-20 12:56 | PN ---
Teaching Attending Note Name of Resident: Ya Antunez ATTENDING PHYSICIAN STATEMENT I saw and evaluated the patient. I reviewed the resident's note and discussed the case with the resident. I agree with the resident's findings and plan as documented. SUBJECTIVE:asymptomatic. deneis CP, SOB, fever, chills, N/V/C/D OBJECTIVE: Last Vital Signs Temp Pulse Resp BP Pulse Ox 98.3 F 76 20 109/62 97 09/20/18 05:50 09/20/18 05:50 09/20/18 05:50 09/20/18 05:50 09/19/18 21:00 General NAD Abdomen soft NT/ND +LOBO drain with minimal bile secretions ASSESSMENT AND PLAN: 37 yo M with PMhx of asthma, prior DM (reportedly resolved with lifestyle modifications), ETOH abuse s/p detox,recent lap appendectomy admitted with RUL hepatic mass suspicious for abscess. 1. RUL hepatic abscess- s/p IR guided drain placement 09/16. clinically improved. polymicrobial. burger-sensitive Ecoli and awaiting 2nd organism. plan to repeat CT scan in AM with contrast to assess abscess size. cont zosyn till cx complete. Surgery and ID on board. 2. Recent laparoscopic appendectomy- spoke with surgeon. pathology showed appendix and surgery had no complications. low risk for relation to hepatic abscess 3. remote ETOH abuse- with recent detox. no sign of withdrawal here. cont AA and outpatient support 4. Prior reported DM- A1c 6.2. cont diet control. no need for medications at this time. 5. Asthma 6. DVT ppx- lovenox.
[2018-09-21] MEDS ORDERED: DEXTROSE 5%-WATER - 50 ML IVPB ONE ×3 (00:47→16:54)
[2018-09-21] MEDS ORDERED: PIPERACILLIN/TAZOBACTAM 3.375 GM VIAL IVPB ONE ×3 (00:47→16:54)
[2018-09-21] MEDS: PIPERACILLIN/TAZOB 3.375 GM 3.375 GM in DEXTROSE 5%-WATER - 50 ML IVPB SCH ×3 (00:59→17:24)
[2018-09-21 07:43] LABS: HEMATOCRIT 39.1 % (35.4-49); HEMOGLOBIN 12.6 GM/dL (11.7-16.9); MCH 26.4 pg (25.7-33.7); MCHC 32.2 g/dl (32.0-35.9); MEAN CELL VOLUME 82.1 fl (80-96); PLATELET COUNT 431 K/MM3 (134-434); RBC 4.76 M/mm3 (4.00-5.60); WHITE BLOOD COUNT 8.2 K/mm3 (4.0-10.0)
--- NOTE | 2018-09-21 07:55 | PN ---
Progress Note (short form) - Note Progress Note: No acute complaints per RN notes over past 24 hours. Pt continues to get oob and ambulate unassisted. Voiding & stooling spontaneously. Tolerating PO diet. Denies n/v/f/c AVSS. Afebrile Gen: nad Abd: soft. non-tender, non-distended, no rebound/guarding or rigidity. Bowel sounds x4. Bile bag nothing recorded for the past 24 hours per chart. Scant amount of brown liquid in bag Problem List - Problems (1) Hepatic abscess Assessment/Plan: RUL hepatic abscess --> s/p IR guided drain 09/16. Clinically, the patient has improved. Microbiology shows polymicrobial...burger-sensitive Ecoli and awaiting 2nd organism Repeat ABD CT scan ordered for today Cont ABX Cont OOB and ambulate Tylenol 650 mg for fever > 100.3F Pain management prn Above plan discussed with Dr. Godwin and Agrees Code(s): K75.0 - ABSCESS OF LIVER
[2018-09-21 08:27] LABS: ALBUMIN 3.3 g/dl (3.4-5.0); ALK PHOS 73 U/L (45-117); ANION GAP 9 MMOL/L (8-16); BILIRUBIN,TOTAL 0.2 mg/dL (0.2-1); BLOOD UREA NITROGEN 15 mg/dL (7-18); CALCIUM 9.2 mg/dL (8.5-10.1); CHLORIDE 102 mmol/L (98-107); CO2 26 mmol/L (21-32); GLUCOSE,RANDOM 112 mg/dL (74-106); MAGNESIUM 2.5 mg/dL (1.8-2.4); PHOSPHOROUS 4.7 mg/dL (2.5-4.9); POTASSIUM 4.6 mmol/L (3.5-5.1); SGOT/AST 22 U/L (15-37); SGPT/ALT 71 U/L (13-61); SODIUM 138 mmol/L (136-145); TOT PROT 8.1 g/dl (6.4-8.2)
[2018-09-21] MEDS: THIAMINE HCL 100 MG TABLET (FP) PO SCH (10:55)
[2018-09-21] MEDS: FOLIC ACID 1 MG TABLET (FP) PO SCH (10:55)
[2018-09-21] MEDS: ENOXAPARIN NA (PORCINE) 40 MG/0.4 ML DISP.SYRIN SQ SCH (10:55)
[2018-09-21] MEDS: MULTIVITAMINS (DAILY MVI) TABLET (FP) PO SCH (10:55)
--- NOTE | 2018-09-21 11:24 | PN ---
Physical Exam: SUBJECTIVE: Patient seen and examined at bedside- no acute events overnight. patient has not had anymore dark stools. he denies having anymore abdominal pain - he denies any CP/SOB/N/V fevers or chills OBJECTIVE: Vital Signs Period Temp Pulse Resp BP Sys/Farfan Pulse Ox Last 24 Hr 98.3 F-98.4 F 81-88 17-21 116-120/45-79 98 GENERAL: The patient is awake, alert, and fully oriented, in no acute distress. EYES: no scleral icterus NECK: no JVD, no lymphadenopathy LUNGS: CTA B/L; no rales, rhonchi or wheezing HEART: Regular rate and rhythm, S1, S2 without murmur, rub or gallop. ABDOMEN: soft; non-tender, non-distended +BS in all 4 quadrants EXTREMITIES:warm; well-perfused, no clubbing/cyanosis or edema. SKIN: Warm, dry, normal turgor, no rashes or lesions noted Laboratory Results - last 24 hr 09/20/18 09/21/18 09/21/18 08:42 07:10 07:10 WBC 8.2 RBC 4.76 Hgb 12.6 Hct 39.1 MCV 82.1 MCH 26.4 MCHC 32.2 RDW 15.0 Plt Count 431 MPV 7.0 L Sodium 138 Potassium 4.6 Chloride 102 Carbon Dioxide 26 Anion Gap 9 BUN 15 Creatinine 1.0 Creat Clearance w eGFR > 60 Random Glucose 112 H Calcium 9.2 Phosphorus 4.7 Magnesium 2.5 H Total Bilirubin 0.2 AST 22 ALT 71 H Alkaline Phosphatase 73 Total Protein 8.1 Albumin 3.3 L Stool Occult Blood Negative Active Medications Generic Name Dose Route Start Last Admin Trade Name Freq PRN Reason Stop Dose Admin Acetaminophen 650 mg 09/17/18 11:06 09/18/18 18:29 Tylenol - PO 650 mg Q6H PRN Administration PAIN LEVEL 1-5 Enoxaparin Sodium 40 mg 09/19/18 14:30 09/20/18 10:33 Lovenox - SQ Not Given DAILY PALU Folic Acid 1 mg 09/18/18 10:00 09/20/18 10:30 Folic Acid - PO 1 mg DAILY PAUL Administration Piperacillin Sod/Tazobactam 50 mls @ 100 mls/hr 09/18/18 10:31 09/21/18 09:38 Sod 3.375 gm/ Dextrose IVPB 100 mls/hr Q8H-IV PAUL Administration Protocol Ketorolac Tromethamine 15 mg 09/17/18 11:06 09/19/18 23:46 Toradol Injection - IVPUSH 09/22/18 11:05 15 mg Q6H PRN Administration PAIN LEVEL 6-10 Multivitamins/Minerals/Vitamin C 1 tab 09/18/18 10:00 09/20/18 10:30 Tab-A-Vit - PO 1 tab DAILY PAUL Administration Thiamine HCl 100 mg 09/18/18 10:00 09/20/18 10:30 Vitamin B1 - PO 100 mg DAILY PAUL Administration ASSESSMENT/PLAN: 37 y/o male with PMH of asthma, DM, alcohol depedence presents to the ED for RUQ pain for the past 7 days found to most likely have a hepatic abcess. #Hepatic Abcess hepatic abcess found on CT scan with extrahepatic extension -patient got abcess drained by IR -one cx growing E-Coli; the other is growing anaerobic gram neg bacilli; still waiting final sensitives to switch abx if necessary -patient getting repeat ab/pelvic CT today -toradol/tylenol for pain #Alcohol Use -thiamine and folate, multivitamin -monitor electrolytes -skilled nursing facility counselor about cessation/detox F/E/N LR @100mls/hr monitor electrolytes regular diet DVT PPX: lovenox 40 SQ Problem List - Problems (1) Hepatic abscess Code(s): K75.0 - ABSCESS OF LIVER (2) Alcohol dependence with uncomplicated withdrawal Code(s): F10.230 - ALCOHOL DEPENDENCE WITH WITHDRAWAL, UNCOMPLICATED Visit type - Emergency Visit Emergency Visit: Yes ED Registration Date: 09/16/18 Care time: The patient presented to the Emergency Department on the above date and was hospitalized for further evaluation of their emergent condition. - New Patient This patient is new to me today: No - Critical Care Critical Care patient: No
--- NOTE | 2018-09-21 12:59 | PN ---
Progress Note, Physician History of Present Illness: patient doing well has been afebrile still with quite a bit of drainage - Current Medication List Current Medications: Active Medications Acetaminophen (Tylenol -) 650 mg PO Q6H PRN PRN Reason: PAIN LEVEL 1-5 Last Admin: 09/18/18 18:29 Dose: 650 mg Enoxaparin Sodium (Lovenox -) 40 mg SQ DAILY [facility] Last Admin: 09/20/18 10:33 Dose: Not Given Folic Acid (Folic Acid -) 1 mg PO DAILY PAUL Last Admin: 09/20/18 10:30 Dose: 1 mg Piperacillin Sod/Tazobactam (Sod 3.375 gm/ Dextrose) 50 mls @ 100 mls/hr IVPB Q8H-IV PAUL; Protocol Last Admin: 09/21/18 09:38 Dose: 100 mls/hr Ketorolac Tromethamine (Toradol Injection -) 15 mg IVPUSH Q6H PRN PRN Reason: PAIN LEVEL 6-10 Stop: 09/22/18 11:05 Last Admin: 09/19/18 23:46 Dose: 15 mg Multivitamins/Minerals/Vitamin C (Tab-A-Vit -) 1 tab PO DAILY [facility] Last Admin: 09/20/18 10:30 Dose: 1 tab Thiamine HCl (Vitamin B1 -) 100 mg PO DAILY [facility] Last Admin: 09/20/18 10:30 Dose: 100 mg - Objective Vital Signs: Vital Signs Temperature 98.4 F 09/21/18 05:50 Pulse Rate 88 09/21/18 05:50 Respiratory Rate 20 09/21/18 09:00 Blood Pressure 116/64 09/21/18 05:50 O2 Sat by Pulse Oximetry (%) 98 09/21/18 09:00 Constitutional: Yes: No Distress, Calm Cardiovascular: Yes: Regular Rate and Rhythm Respiratory: Yes: Regular, CTA Bilaterally Gastrointestinal: Yes: Normal Bowel Sounds, Soft, Other (drain in place) Musculoskeletal: Yes: WNL Extremities: Yes: WNL Neurological: Yes: Alert, Oriented Psychiatric: Yes: Alert, Oriented Labs: CBC, BMP 09/21/18 07:10 09/21/18 07:10 INR, PTT INR 1.30 (0.83-1.09) H 09/17/18 00:07 Assessment/Plan 37 yom with PMhx of asthma, prior DM (reportedly resolved with lifestyle modifications), ETOH abuse s/p detox admitted and drainage done RUL hepatic abscess asthma etoh abuse plan continue abx awaiting for cx multiple organisms rest as per the team monitor drainage
--- NOTE | 2018-09-21 15:05 | PN ---
Teaching Attending Note Name of Resident: Ya Antunez ATTENDING PHYSICIAN STATEMENT I saw and evaluated the patient. I reviewed the resident's note and discussed the case with the resident. I agree with the resident's findings and plan as documented. SUBJECTIVE:asymptomatic. denies CP, sob, fever, chills, N/V/C/D or abdominal pain OBJECTIVE: Last Vital Signs Temp Pulse Resp BP Pulse Ox 98.3 F 89 21 H 126/89 98 09/21/18 14:00 09/21/18 14:00 09/21/18 14:00 09/21/18 14:00 09/21/18 09:00 General NAD ASSESSMENT AND PLAN: 37 yo M with PMhx of asthma, prior DM (reportedly resolved with lifestyle modifications), ETOH abuse s/p detox,recent lap appendectomy admitted with RUL hepatic mass suspicious for abscess. 1. RUL hepatic abscess- s/p IR guided drain placement 09/16. clinically improved. polymicrobial. burger-sensitive Ecoli and awaiting 2nd organism. CT with contrast this AM, awaiting read. cont zosyn till cx complete. Surgery and ID on board. 2. Recent laparoscopic appendectomy- spoke with surgeon. pathology showed appendix and surgery had no complications. low risk for relation to hepatic abscess 3. remote ETOH abuse- with recent detox. no sign of withdrawal here. cont AA and outpatient support 4. Prior reported DM- A1c 6.2. cont diet control. no need for medications at this time. 5. Asthma 6. DVT ppx- lovenox.
[2018-09-22] MEDS ORDERED: PIPERACILLIN/TAZOBACTAM 3.375 GM VIAL IVPB ONE ×2 (01:34→09:13)
[2018-09-22] MEDS ORDERED: DEXTROSE 5%-WATER - 50 ML IVPB ONE ×2 (01:34→09:13)
[2018-09-22] MEDS: PIPERACILLIN/TAZOB 3.375 GM 3.375 GM in DEXTROSE 5%-WATER - 50 ML IVPB SCH ×2 (01:40→09:19)
--- NOTE | 2018-09-22 09:12 | PN ---
Progress Note (short form) - Note Progress Note: Pt reports feeling well today. States abdominal pain has resolved. Tolerating PO , voiding without issue. Has been oob. Denies cp, sob, n/v/d, calf pain/edema. Vital Signs Temp 97.6 F 09/22/18 06:00 Pulse 70 09/22/18 06:00 Resp 20 09/22/18 06:00 BP 122/64 09/22/18 06:00 Pulse Ox 98 09/21/18 21:00 Intake & Output 09/21/18 09/21/18 09/22/18 11:59 23:59 11:59 Intake Total 50 1110 100 Output Total 1 Balance 50 1110 99 Intake: IVPB 50 10 100 Oral 1100 Output: Drainage 1 Right Flank 1 Other: Voiding Method Toilet Toilet # Unmeasured Voids Void 3 3 Bowel Movement Yes No # Bowel Movements 1 CBC, BMP 09/21/18 07:10 09/21/18 07:10 Gen: awake, alert, nad Resp: unlabored Abdo: soft, nt/nd, Drain in place, dressing c/d/i. <5ml brownish drainage in reservoir A/P: 37 y/o M w/ PMhx asthma, prior DM (reportedly resolved with lifestyle modifications), ETOH abuse s/p detox admitted 09/16 with RUL hepatic mass, found to have perihepatic abscess, now s/p IR drainage on 09/17. Doing well, afebrile, vss. Cultures with Ecoli, multiple organisms F/U final cultures (Fungal, anaerobic) Continue abx per ID No surgical intervention at this time Pt should follow up with Dr Godwin in 7-10days after discharge from hospital Please call with any questions or concerns d/w attending Dr Godwin
[2018-09-22] MEDS: FOLIC ACID 1 MG TABLET (FP) PO SCH (09:18)
[2018-09-22] MEDS: THIAMINE HCL 100 MG TABLET (FP) PO SCH (09:18)
[2018-09-22] MEDS: MULTIVITAMINS (DAILY MVI) TABLET (FP) PO SCH (09:18)
[2018-09-22] MEDS: ENOXAPARIN NA (PORCINE) 40 MG/0.4 ML DISP.SYRIN SQ SCH (09:19)
[2018-09-22 09:26] VITALS: BP 108/64; PULSE 71; TEMP 98.2
--- NOTE | 2018-09-22 12:32 | PN ---
Progress Note, Physician History of Present Illness: patient doing well has been afebrile drainage tube in liver - Current Medication List Current Medications: Active Medications Acetaminophen (Tylenol -) 650 mg PO Q6H PRN PRN Reason: PAIN LEVEL 1-5 Last Admin: 09/18/18 18:29 Dose: 650 mg Enoxaparin Sodium (Lovenox -) 40 mg SQ DAILY [facility] Last Admin: 09/22/18 09:19 Dose: Not Given Folic Acid (Folic Acid -) 1 mg PO DAILY PAUL Last Admin: 09/22/18 09:18 Dose: 1 mg Piperacillin Sod/Tazobactam (Sod 3.375 gm/ Dextrose) 50 mls @ 100 mls/hr IVPB Q8H-IV PAUL; Protocol Last Admin: 09/22/18 09:19 Dose: 100 mls/hr Multivitamins/Minerals/Vitamin C (Tab-A-Vit -) 1 tab PO DAILY [facility] Last Admin: 09/22/18 09:18 Dose: 1 tab Thiamine HCl (Vitamin B1 -) 100 mg PO DAILY [facility] Last Admin: 09/22/18 09:18 Dose: 100 mg - Objective Vital Signs: Vital Signs Temperature 98.2 F 09/22/18 09:25 Pulse Rate 71 09/22/18 09:25 Respiratory Rate 18 09/22/18 09:25 Blood Pressure 108/64 09/22/18 09:25 O2 Sat by Pulse Oximetry (%) 98 09/22/18 09:00 Constitutional: Yes: No Distress, Calm Cardiovascular: Yes: Regular Rate and Rhythm Respiratory: Yes: Regular, CTA Bilaterally Gastrointestinal: Yes: Normal Bowel Sounds, Soft Musculoskeletal: Yes: WNL Extremities: Yes: WNL Neurological: Yes: Alert, Oriented Psychiatric: Yes: Alert, Oriented Labs: CBC, BMP 09/21/18 07:10 09/21/18 07:10 INR, PTT INR 1.30 (0.83-1.09) H 09/17/18 00:07 Assessment/Plan 37 yom with PMhx of asthma, prior DM (reportedly resolved with lifestyle modifications), ETOH abuse s/p detox admitted and drainage done RUL hepatic abscess asthma etoh abuse plan continue abx if patient going home can be switched to 2 gm of ceftriaxone daily for another 23 days and flagyl 500 mg tid for 4 weeks monitor drainage
[2018-09-22] MEDS ORDERED: PICC LINE 8 ML FLUSH PROTOCOL IVPUSH PRN (13:08)
--- NOTE | 2018-09-22 14:51 | PN ---
Teaching Attending Note Name of Resident: Ya Antunez ATTENDING PHYSICIAN STATEMENT I saw and evaluated the patient. I reviewed the resident's note and discussed the case with the resident. I agree with the resident's findings and plan as documented. SUBJECTIVE:asymptomatic. denies Cp, SOB, fever, chills, N/v/C/D OBJECTIVE: Last Vital Signs Temp Pulse Resp BP Pulse Ox 98.2 F 71 18 108/64 98 09/22/18 09:25 09/22/18 09:25 09/22/18 09:25 09/22/18 09:25 09/22/18 09:00 General NAD abdomen soft NT/ND +LOBO drain ASSESSMENT AND PLAN: 37 yo M with PMhx of asthma, prior DM (reportedly resolved with lifestyle modifications), ETOH abuse s/p detox,recent lap appendectomy admitted with RUL hepatic mass suspicious for abscess. 1. RUL hepatic abscess- s/p IR guided drain placement 09/16. clinically improved. Wcx polymicrobial but burger-sensitive. spoke with both ID and surgery. plan to d/c with PICC line for ceftriaxone 2g daily and flagyl po for total of 4 weeks. will have repeat CT scan in 6 weeks and be re-assessed by surgeon if drain can be pulled. bacid on discharge. d/w pt in detail about plan and appropriate follow up. pt feels comfortable hanging abx himself. Surgery and ID on board. 2. Recent laparoscopic appendectomy- spoke with surgeon. pathology showed appendix and surgery had no complications. low risk for relation to hepatic abscess 3. remote ETOH abuse- with recent detox. no sign of withdrawal here. cont AA and outpatient support 4. Prior reported DM- A1c 6.2. cont diet control. no need for medications at this time. 5. Asthma 6. DVT ppx- lovenox. 7. spoke with CM need for buttermaker helper iv abx. can d/c home today if can obtain auth for this
--- NOTE | 2018-09-22 15:27 | DS ---
Physical Exam: SUBJECTIVE: Patient seen and examined at bedside. no acute events overnight; patient states that he is feeling well. he denies any CP/SOB/N/V fevers or chills. he is no longer having abdominal tenderness. OBJECTIVE: Vital Signs Period Temp Pulse Resp BP Sys/Farfan Pulse Ox Last 24 Hr 97.6 F-98.2 F 70-86 18-20 108-124/64-82 98-98 PHYSICAL EXAM GENERAL: The patient is awake, alert, and fully oriented, in no acute distress. EYES: no scleral icterus. NECK: no JVD, no lymphadenopathy LUNGS: CTA B/L; no rales, rhonchi or wheezing HEART: Regular rate and rhythm, S1, S2 without murmur, rub or gallop. ABDOMEN: Soft, nontender, nondistended, normoactive bowel sounds, no guarding, no rebound, no hepatosplenomegaly, no masses. EXTREMITIES: 2+ pulses, warm, well-perfused, no edema. SKIN: Warm, dry, normal turgor, no rashes or lesions noted. LABS Microbiology 09/17/18 07:53 Abscess Gram Stain - Final 09/17/18 07:53 Abscess Body Fluid Culture - Final Escherichia Coli 09/17/18 07:53 Abscess Anaerobic Culture - Preliminary Bacteroides Caccae Prevotella Lisa Bacteroides Distasonis Anaero Non Spore Forming Gpbac 09/16/18 00:28 Blood - Peripheral Venous Blood Culture - Final NO GROWTH AFTER 5 DAYS INCUBATION 09/16/18 00:28 Blood - Peripheral Venous Blood Culture - Final NO GROWTH AFTER 5 DAYS INCUBATION 09/17/18 09:53 Abscess TAMIKO Preparation - Preliminary 09/17/18 09:53 Abscess Fungal Culture - Preliminary imaging AB/Pelvis CT: IMPRESSION: 1. Complex right hepatic mass suspicious for an abscess. 2. No additional evidence of acute pathology within the abdomen and pelvis. Clinical correlation and follow-up recommended. Please see above discussion. HOSPITAL COURSE: Date of Admission:[birth year]37 y/o male with NO pmh came to the ED with complaints of RUQ pain for 7 days found to have a right lower lobe hepatic abscess. He came in with a WBC count on admission was well- patient was started on zosyn and taken the next morning for IR drainage of the hepatic abscess. Patient was on ZOsyn for 5 days before being discharged on 4 weeks of ceftriaxone and flagyl with strict folllow up to see the surgeon for repeat CT scan. Patient remained afebrile throuhgout his entire stay and his WBC normalized Date of Discharge: 09/22/18 Minutes to complete discharge: 39 Discharge Summary Reason For Visit: ABSCESS OF LIVER Current Active Problems Hepatic abscess (Acute) Condition: Stable - Instructions Diet, Activity, Other Instructions: You came to the emergency room with abdominal pain and needed to get an abscess from your liver drained. Continue to care for drain as shown by the RN. You should follow up with Dr Godwin for this who will have a repeat CT scan done in approximately 6 weeks to see if the drain can be removed. Please resume all of your home medications in addition: -please take the antibiotic Ceftriaxone 2g daily for a total of 4 weeks for which you are getting a peripherally inserted catheter placed. You will complete this on 10/15. -please take the antibiotic Flagyl 500mg three times a day for 4 weeks. You will complete this on 10/15. Take bacid for 1 month to prevent developing diarrhea. -We advise that you follow up with your primary care physician within one week -We advise that you follow up with the surgeon, Dr Godwin in 7-10 days. *if you begin to have any abdominal pain, chest pain, nausea, vomiting, fevers please return to the emergency room immediately Referrals: Kalpesh Godwin MD [Staff Physician] - ON STAFF,NOT [Primary Care Provider] - Disposition: HOME - Home Medications Comprehensive Discharge Medication List: Ambulatory Orders Lactobacillus Acidophilus [Bacid -] 1 each PO DAILY #30 capsule 09/22/18 metroNIDAZOLE [Metronidazole] 500 mg PO TID 28 Days #84 tablet 09/22/18 Problem List - Problems (1) Hepatic abscess Code(s): K75.0 - ABSCESS OF LIVER (2) Alcohol dependence with uncomplicated withdrawal Code(s): F10.230 - ALCOHOL DEPENDENCE WITH WITHDRAWAL, UNCOMPLICATED This patient is new to me today: No Emergency Visit: Yes ED Registration Date: 09/16/18 Care time: The patient presented to the Emergency Department on the above date and was hospitalized for further evaluation of their emergent condition. Critical Care patient: No - Discharge Referral Referred to [facility] No
== END 2018-09-22 17:56 | disposition home or self-care (01) | DRG 279 ==
LOC: SUPCPDRO 20:43 → JER 20:43 → JERBED 23:39 → J6S 09-17 14:36
PROVIDERS: ADMIT Internal Medicine; ATTEND Internal Medicine
PROC: 0F9130Z Drainage of Right Lobe Liver with Drainage Device, Percutaneous Approach (ICD-10-PCS; principal; 2018-09-21)
PROC: 02HV33Z Insertion of Infusion Device into Superior Vena Cava, Percutaneous Approach (ICD-10-PCS; 2018-09-22)
PROC: B518ZZA Fluoroscopy of Superior Vena Cava, Guidance (ICD-10-PCS; 2018-09-22)
DX: K75.0 Abscess of liver (principal); F10.20 Alcohol dependence, uncomplicated; E11.9 Type 2 diabetes mellitus without complications; J45.909 Unspecified asthma, uncomplicated; B96.29 Other Escherichia coli [E. coli] as the cause of diseases classified elsewhere
CPT/HCPCS: 36415; 36569; 49405; 74177-TC; 76705-TC; 77001-TC-FY; 80048; 80053; 80074; 80307; 81003; 81015; 82272; 83036; 83605; 83690; 83735; 84100; 85025; 85027; 85610; 87040; 87070; 87075; 87102; 87186; 87205; 87210; 87389; 90732; 99285-25; A4358; C1729; C1751; G0009; J7030

== ENCOUNTER 2018-09-29 16:53 | Emergency (ER) | payer OTHER ==
--- NOTE | 2018-09-29 17:02 | PDOC ---
Rapid Medical Evaluation Chief Complaint: Suture/Staple Removal(Here) Time Seen by Provider: 09/29/18 17:00 Medical Evaluation: Allergies Allergy/AdvReac Type Severity Reaction Status Date / Time No Known Allergies Allergy Verified 09/29/18 16:58 09/29/18 17:02 I have performed a brief in-person evaluation of this patient. The patient presents with a chief complaint of: needs dressing change to drain. Pt s/p I&D for liver abscess last week and set to f/u w/ Dr Godwin next Tuesday. Currently receiving IV abx via PICC. H/o DM, ETOH abuse Pertinent physical exam findings: Drain/dressing in place to R flank I have ordered the following:nothing The patient will proceed to the ED for further evaluation. Discharge Disposition - Diagnosis Dressing change - Referrals - Patient Instructions - Post Discharge Activity
[2018-09-29 17:07] VITALS: BP 121/67; PULSE 75; TEMP 98.2; BMI 25.5
--- NOTE | 2018-09-29 18:13 | PDOC ---
History of Present Illness - General Chief Complaint: Wound Stated Complaint: SUTURES Time Seen by Provider: 09/29/18 17:00 History Source: Patient Exam Limitations: No Limitations - History of Present Illness Initial Comments: 09/29/18 17:56 HISTORY OF PRESENT ILLNESS: 37-year-old male with history of appendicitis status post appendectomy with resulting liver abscess status post drainage presents emergency department for dressing change of his liver drain. Patient states she has a follow-up appointment with Dr. Godwin on 10/04 for reevaluation and potential drain removal. Patient denies all complaints. No recent travel or sick contacts. PAST MEDICAL HISTORY: liver abscess SURGICAL HISTORY: appendicitis ALLERGIES: No known drug allergies REVIEW OF SYSTEMS General/Constitutional: Denies fever or chills. Denies weakness, weight change. HEENT: Denies change in vision. Denies ear pain or discharge. Denies sore throat. Cardiovascular: Denies chest pain or shortness of breath. Respiratory: Denies cough, wheezing, or hemoptysis. Gastrointestinal: Denies nausea, vomiting, diarrhea or constipation. Denies rectal bleeding. Genitourinary: Denies dysuria, frequency, or change in urination. Musculoskeletal: Denies joint or muscle swelling or pain. Denies neck or back pain. Skin and breasts: Denies rash or easy bruising. Neurologic: Denies headache, vertigo, loss of consciousness, or loss of sensation. Psychiatric: Denies depression or anxiety. Endocrine: Denies increased thirst. Denies abnormal weight change. Hematologic/Lymphatic: Denies anemia, easy bleeding, or history of blood clots. Allergic/Immunologic: Denies hives or skin allergy. Denies latex allergy. PHYSICAL EXAM General Appearance: Well-appearing, appropriately dressed. No apparent distress , no intoxication. Respiratory/Chest: Lungs CTAB. No shortness of breath, chest tenderness, respiratory distress, accessory muscle use. No crackles, rales, rhonchi, stridor , wheezing, dullness Cardiovascular: RRR. S1, S2. No JVD, murmur, bradycardia, tachycardia. Vascular Pulses: Dorsalis-Pedis (R): 2+, Dorsalis-Pedis (L): 2+ Gastrointestinal/Abdominal: Normal bowel sounds. Abdomen soft, non-distended. No tenderness or rebound tenderness. No organomegaly, pulsatile mass, guarding, hernia, hepatomegaly, splenomegaly. Lymphatic: No adenopathy, tenderness. Musculoskeletal/Extremities: Normal inspection. FROM of all extremities, normal capillary refill. Pelvis Stable. No CVA tenderness. No tenderness to extremities, pedal edema, swelling, erythema or deformity. Integumentary: Appropriate color, dry, warm. No erythema, swelling or discharge present from insertion site of liver drain. 8 [place] catheter presents with 22 cm depth. Past History - Past Medical History Allergies/Adverse Reactions: Allergies Allergy/AdvReac Type Severity Reaction Status Date / Time No Known Allergies Allergy Verified 09/29/18 16:58 Home Medications: Ambulatory Orders Lactobacillus Acidophilus [Bacid -] 1 each PO DAILY #30 capsule 09/22/18 metroNIDAZOLE [Metronidazole] 500 mg PO TID 28 Days #84 tablet 09/22/18 Anemia: No Asthma: Yes Cancer: No Cardiac Disorders: No CVA: No COPD: No CHF: No Dementia: No Diabetes: No GI Disorders: No Disorders: No HTN: No Hypercholesterolemia: No Kidney Stones: No Liver Disease: No Seizures: No Thyroid Disease: No Other medical history: hepatic abcsess - Surgical History Abdominal Surgery: No Appendectomy: Yes Cardiac Surgery: No Cholecystectomy: No Lung Surgery: No Neurologic Surgery: No Orthopedic Surgery: No - Reproductive History Testicular Surgery: No - Immunization History Immunization Up to Date: Yes - Suicide/Smoking/Psychosocial Hx Smoking History: Never smoked Have you smoked in the past 12 months: No Hx Alcohol Use: No Drug/Substance Use Hx: No Substance Use Type: Alcohol Hx Substance Use Treatment: Yes ([facility] 04/20/18) *Physical Exam - Vital Signs Last Vital Signs Temp Pulse Resp BP Pulse Ox 98.2 F 75 18 121/67 98 09/29/18 16:59 09/29/18 16:59 09/29/18 16:59 09/29/18 16:59 09/29/18 16:59 Moderate Sedation - Procedure Monitoring Vital Signs: Procedure Monitoring Vital Signs Temperature 98.2 F 09/29/18 16:59 Pulse Rate 75 09/29/18 16:59 Respiratory Rate 18 09/29/18 16:59 Blood Pressure 121/67 09/29/18 16:59 O2 Sat by Pulse Oximetry (%) 98 09/29/18 16:59 Medical Decision Making - Medical Decision Making 09/29/18 17:56 A/P: 37-year-old male here for dressing change to catheter for liver abscess drainage Physical exam is within normal limits 10 [place] catheter present to right upper quadrant. 20 cm depth Sterile Dressing change performed. Discharge home *DC/Admit/Observation/Transfer Diagnosis at time of Disposition: Dressing change - Discharge Dispostion Disposition: HOME Condition at time of disposition: Stable Decision to Admit order: No - Referrals - Patient Instructions Additional Instructions: Follow-up with Dr. Godwin at previously scheduled appointment. - Post Discharge Activity
== END 2018-09-29 18:00 | disposition home or self-care (01) ==
LOC: JERFT 16:53
DX: Z48.815 Encounter for surgical aftercare following surgery on the digestive system (principal); Z48.01 Encounter for change or removal of surgical wound dressing
CPT/HCPCS: 99281-25

== ENCOUNTER 2019-09-21 18:00 | Inpatient (IN) | payer OTHER ==
[2019-09-21 20:28] VITALS: BMI 27.3
[2019-09-21] MEDS ORDERED: diazePAM 5 MG TABLET PO SCH (22:00)
--- NOTE | 2019-09-21 22:18 | HP ---
CIWA Score Nausea/Vomitin-No Nausea/No Vomiting Muscle Tremors: 3 Anxiety: 4-Mod. Anxious/Guarded Agitation: 4-Moderately Restless Paroxysmal Sweats: 3 Orientation: 1-Uncertain about Date Tacttile Disturbances: 0-None Auditory Disturbances: 0-None Visual Disturbances: 0-None Headache: 0-None Present CIWA-Ar Total Score: 15 - Admission Criteria [facility]ASAS Guidelines: Admission for Medically Managed Detox: Requires at least one of the followin. CIWA greater than 12 2. Seizures within the past 24 hours 3. Delirium tremens within the past 24 hours 4. Hallucinations within the past 24 hours 5. Acute intervention needed for co occurring medical disorder 6. Acute intervention needed for co occurring psychiatric disorder 7. Severe withdrawal that cannot be handled at a lower level of care (continued vomiting, continued diarrhea, abnormal vital signs) requiring intravenous medication and/or fluids 8. Patient presents the following: CIWA greater than 12, Acute intervention needed for co-occurring med or psych disorder (elevated b/p and tachycardia) Admission Criteria Met: Admission criteria met Admitting History and Physical - Past Medical History Pulmonary: Yes: Asthma Endocrine: Yes: Diabetes Mellitus - Smoking History Smoking history: Never smoked Have you smoked in the past 12 months: No - Alcohol/Substance Use Hx Alcohol Use: No History of Substance Use: reports: None - Social History ADL: Independent Occupation: CPA History of Recent Travel: No Admission ROS [facility] Chief Complaint: seeking detox from alcohol Allergies/Adverse Reactions: Allergies Allergy/AdvReac Type Severity Reaction Status Date / Time No Known Allergies Allergy Verified 09/21/19 20:12 History of Present Illness: HERE FOR ALCOHOL DETOX. CLIENT IS KNOWN TO THE PROGRAM. SELF REFERRED. LAST HERE 07/2018. CLIENT REPORTS SOBRIETY SINCE TILL4 DAYS AGO HE RELAPSED. HAS BEEN DRINKING ALCOHOL DAILY. HE REPORTS APPROX 2 PINTS DAILY. LAST DRINK EARLIER TODAY. HE REPORTS A HX/O WITHDRAWAL SZ. X1 . A FEW YEARS AGO. 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 [place], UNEMPLOYED, DENIES LEGALS Exam Limitations: Intoxication (A/O X 3) - Ebola screening Have you traveled outside of the country in the last 21 days: No (N) Have you had contact with anyone from an Ebola affected area: No Have you been sick,other than usual withdrawal symptoms: No - Review of Systems Constitutional: Chills, Loss of Appetite, Night Sweats, Changes in sleep EENT: reports: No Symptoms Reported Respiratory: reports: No Symptoms reported Cardiac: reports: No Symptoms Reported GI: reports: Poor Appetite, Poor Fluid Intake : reports: No Symptoms Reported Musculoskeletal: reports: No Symptoms Reported Integumentary: reports: [place] Neuro: reports: Seizure (A FEW YEARS AGO R/T WITHDRAWAL), Tremors (WITHDRAWAL) Endocrine: reports: No Symptoms Reported Hematology: reports: No Symptoms Reported Psychiatric: reports: Orientated x3, Anxious Other Systems: Reviewed and Negative Patient History - Patient Medical History Hx Anemia: No Hx Asthma: Yes Hx Chronic Obstructive Pulmonary Disease (COPD): No Hx Cancer: No Hx Cardiac Disorders: No Hx Congestive Heart Failure: No Hx Hypertension: No Hx Hypercholesterolemia: No Hx Pacemaker: No HX Cerebrovascular Accident: No Hx Seizures: No Hx Dementia: No Hx Diabetes: No Hx Gastrointestinal Disorders: No Hx Liver Disease: No Hx Genitourinary Disorders: No Hx Sexually Transmitted Disorders: No Hx Renal Disease (ESRD): No Hx Thyroid Disease: No Hx Human Immunodeficiency Virus (HIV): No (Negative 2013) Hx Hepatitis C: No Hx Depression: No (Not on medication) Hx Suicide Attempt: No Hx Bipolar Disorder: No Hx Schizophrenia: No Other Medical History: DENIES - Patient Surgical History Past Surgical History: Yes Hx Neurologic Surgery: No Hx Cataract Extraction: No Hx Cardiac Surgery: No Hx Lung Surgery: No Hx Breast Surgery: No Hx Breast Biopsy: No Hx Abdominal Surgery: No Hx Appendectomy: Yes Hx Cholecystectomy: No Hx Genitourinary Surgery: No Hx Section: No Hx Orthopedic Surgery: No Anesthesia Reaction: No - PPD History Previous Implant?: Yes Documented Results: Positive w/o proof Implanted On Prior [facility] Admission?: No Date: 04/23/18 Results: CXR PPD to be Administered?: No - Smoking Cessation Smoking history: Former smoker Have you smoked in the past 12 months: No If you are a former smoker, when did you quit?: 10 YEARS AGO Cigars Per Day: 0 Hx Chewing Tobacco Use: No Initiated information on smoking cessation: No - Substance & Tx. History Hx Alcohol Use: Yes Hx Substance Use: Yes Substance Use Type: Alcohol Hx Substance Use Treatment: Yes ([facility]) - Substances abused Alcohol Substance route: Oral Frequency: Daily Amount used: 5 pints of vodka/1 beer. Age of first use: 7 Date of last use: 09/21/19 Admission Physical Exam [facility] - Vital Signs Vital Signs: Vital Signs - 24 hr 09/21/19 20:12 Temperature 98.6 F Pulse Rate 120 H Respiratory 16 Rate Blood Pressure 151/85 - Physical General Appearance: Yes: Mild Distress, Intoxicated, Tremorous (FELT), Sweating , Anxious HEENTM: Yes: EOMI, Normal ENT Inspection, Normocephalic, Normal Voice, CHRIST Respiratory: Yes: Chest Non-Tender, Lungs Clear, Normal Breath Sounds, No Respiratory Distress, No Accessory Muscle Use Neck: Yes: No masses,lesions,Nodules, Trachea in good position Breast: Yes: Breasts Symetrical Cardiology: Yes: Regular Rhythm, S1, S2, Tachycardia Abdominal: Yes: Normal Bowel Sounds, Non Tender, Soft, Protuberent Genitourinary: Yes: Within Normal Limits (NO C/O) Back: Yes: Normal Inspection Musculoskeletal: Yes: full range of Motion, Gait Steady Extremities: Yes: Normal Range of Motion, Non-Tender, Tremors (FELT) Neurological: Yes: Fully Oriented, Alert, Motor Strength 5/5, Depressed Affect Integumentary: Yes: Warm, Moist Lymphatic: Yes: Within Normal Limits - Diagnostic (1) Asthma, exercise induced Current Visit: Yes Status: Acute (2) History of positive PPD Current Visit: Yes Status: Acute (3) Depressed affect Current Visit: Yes Status: Acute (4) Alcohol dependence with uncomplicated withdrawal Current Visit: No Status: Acute (5) Alcohol-induced mood disorder Current Visit: No Status: Acute (6) At risk for dehydration due to poor fluid intake Current Visit: Yes Status: Acute Cleared for Admission [facility] - Detox or Rehab [facility] Level of Care: Medically Managed Detox Regimen/Protocol: Valium Claeared for Rehab Admission: No Breathalyzer - Breathalyzer Breathalyzer: 0.224 Urine Drug Screen - Test Device Lot number: [id number] Expiration date: 05/22/21 - Control Is test valid?: Yes - Results Drug screen NEGATIVE: Yes Inpatient Rehab Admission - Rehab Decision to Admit Inpatient rehab admission?: No
[2019-09-21] MEDS ORDERED: diazePAM 5 MG TABLET PO PRN (22:23)
[2019-09-21] MEDS ORDERED: MAGNESIUM CITRATE 300 ML BOTTLE PO PRN (22:23)
[2019-09-21] MEDS ORDERED: IBUPROFEN 400 MG TABLET (FP) PO PRN (22:23)
[2019-09-21] MEDS ORDERED: ACETAMINOPHEN 325 MG TABLET (FP) PO PRN ×2 (22:23)
[2019-09-21] MEDS ORDERED: METHOCARBAMOL 500 MG TABLET PO PRN (22:23)
[2019-09-21] MEDS ORDERED: BISMUTH SUBSALICYLATE 524 MG/30 ML UD PO PRN (22:23)
[2019-09-21] MEDS ORDERED: MENTHOL/PHENOL 1 EACH UD MM PRN (22:23)
[2019-09-21] MEDS ORDERED: MAG HYDROX/AL HYDROX/SIMETH 30 ML UNIT-DOSE CUP PO PRN (22:23)
[2019-09-21] MEDS ORDERED: DICYCLOMINE HCL 10 MG CAPSULE PO PRN (22:23)
[2019-09-21] MEDS ORDERED: MAGNESIUM HYDROX 2400MG/30ML ORAL SUSPENSION 30 ML CUP PO PRN (22:23)
[2019-09-21] MEDS ORDERED: hydrOXYzine PAMOATE 25 MG CAPSULE (FP) PO PRN (22:23)
[2019-09-21] MEDS ORDERED: guaiFENesin 200 MG/10 ML 10 ML UNIT-DOSE CUPS PO PRN (22:23)
[2019-09-21] MEDS ORDERED: ONDANSETRON *ODT* 4 MG TABLET SL PRN (22:23)
[2019-09-21] MEDS ORDERED: P-EPHED 60MG/TRIPROLIDI 2.5MG TABLET PO PRN (22:23)
[2019-09-21] MEDS ORDERED: LORazepam 1 MG TABLET PO PRN (22:31)
[2019-09-21] MEDS: LORazepam 2 MG TABLET PO SCH (23:48)
[2019-09-22] MEDS: LORazepam 2 MG TABLET PO SCH ×4 (06:36→22:05)
[2019-09-22] MEDS: PRENATAL VITAMINS W/ FOLIC ACID TABLET (FP) PO SCH (10:40)
[2019-09-22 10:54] LABS: ALBUMIN 3.7 g/dl (3.4-5.0); BILIRUBIN,TOTAL 0.7 mg/dL (0.2-1); BLOOD UREA NITROGEN 15.8 mg/dL (7-18); CALCIUM 8.9 mg/dL (8.5-10.1); CREATININE 0.9 mg/dL (0.55-1.3); POTASSIUM 3.4 mmol/L (3.5-5.1); TOT PROT 7.4 g/dl (6.4-8.2)
[2019-09-22 11:09] LABS: HEMATOCRIT 38.7 % (35.4-49); HEMOGLOBIN 13.2 GM/dL (11.7-16.9); MCH 29.4 pg (25.7-33.7); MEAN CELL VOLUME 86.4 fl (80-96); MEAN PLT VOLUME 7.6 fl (7.5-11.1); PLATELET COUNT 204 K/MM3 (134-434); RBC 4.48 M/mm3 (4.00-5.60); RDW 13.4 % (11.9-15.9); WHITE BLOOD COUNT 5.9 K/mm3 (4.0-10.0)
--- NOTE | 2019-09-22 14:10 | PN ---
[facility] CIWA - CIWA Score Nausea/Vomitin-Mild Nausea/No Vomiting Muscle Tremors: 3 Anxiety: 2 Agitation: 2 Paroxysmal Sweats: 2 Orientation: 1-Uncertain about Date Tacttile Disturbances: 0-None Auditory Disturbances: 0-None Visual Disturbances: 0-None Headache: 1-Very Mild CIWA-Ar Total Score: 12 [facility] Progress Note (SOAP) Subjective: pt states doing better, day #2 O: Vital Signs - 24 hr 09/21/19 09/21/19 09/22/19 20:12 23:58 03:30 Temperature 98.6 F 99.0 F Pulse Rate 120 H 109 H Respiratory 16 20 18 Rate Blood Pressure 151/85 135/85 09/22/19 09/22/19 09/22/19 06:00 09:50 13:35 Temperature 98.8 F 98.2 F 97.7 F Pulse Rate 99 H 114 H 83 Respiratory 18 18 18 Rate Blood Pressure 143/78 137/81 153/89 Laboratory Tests 09/22/19 09/22/19 07:50 07:50 WBC 5.9 RBC 4.48 Hgb 13.2 Hct 38.7 MCV 86.4 MCH 29.4 D MCHC 34.0 RDW 13.4 D Plt Count 204 D MPV 7.6 Sodium 138 Potassium 3.4 L Chloride 99 Carbon Dioxide 27 Anion Gap 12 BUN 15.8 Creatinine 0.9 Est GFR (CKD-EPI)AfAm 125.13 Est GFR (CKD-EPI)NonAf 107.97 Random Glucose 173 H Calcium 8.9 Total Bilirubin 0.7 AST 39 H ALT 56 Alkaline Phosphatase 66 Total Protein 7.4 Albumin 3.7 low potassium a/p: AUD- continue alcohol detox protocol- potassium repletion
--- NOTE | 2019-09-22 16:12 | CONSULT ---
[facility] Psychiatric Consult - Data Date of interview: 09/22/19 Admission source: [facility] Identifying data: Radmission to [facility] for this [place]born male self- referred for detoxification (VIVIANE issues : alcohol). Interviewed at [address] [place] [address]. 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 Substance Abuse History: Discussed with the patient. Refer to current [facility] report for details : Smoking history: Former smoker. Have you smoked in the past 12 months: No. If you are a former smoker, when did you quit?: 10 YEARS AGO. Cigars Per Day: 0. Hx Chewing Tobacco Use: No. Initiated information on smoking cessation: No. - Substance & Tx. History. Hx Alcohol Use: Yes. Hx Substance Use: Yes. Substance Use Type: Alcohol. Hx Substance Use Treatment: Yes ([facility]). - Substances abused. Alcohol. Substance route: Oral. Frequency: Daily. Amount used: 5 pints of vodka/1 beer. Age of first use: 7. Date of last use: 09/21/19 Medical History: Patient endorses good general health. Noted history of bronchial asthma. Psychiatric History: Patient denies history of psychiatric hospitalizations, OPD care or suicide attempts. Physical/Sexual Abuse/Trauma History: No history. Additional Comment: Negative toxicology. Mental Status Exam - Mental Status Exam Alert and Oriented to: Time, Place, Person Cognitive Function: Good Patient Appearance: Well Groomed Mood: Hopeful, Euthymic Affect: Appropriate, Normal Range Patient Behavior: Fatigued, Appropriate, Cooperative Speech Pattern: Clear Voice Loudness: Normal Thought Process: Intact, Goal Oriented Thought Disorder: Not Present Hallucinations: Denies Suicidal Ideation: Denies Homicidal Ideation: Denies Insight/Judgement: Fair Sleep: Well Appetite: Good Gait/Station: Normal Psychiatric Findings - Problem List ([place] 1, 2,3) (1) Alcohol dependence with uncomplicated withdrawal Current Visit: Yes Status: Acute - Initial Treatment Plan Initial Treatment Plan: Psychoeducation. Sleep hygiene. Detoxification. MAT services discussed with patient. AA meetings. Observation.
[2019-09-22] MEDS: POTASSIUM CHLORIDE TABS 20 MEQ TABLET.ER (FP) PO SCH (22:05)
[2019-09-22] MEDS: THIAMINE HCL 100 MG TABLET (FP) PO SCH (22:05)
[2019-09-22] MEDS: MELATONIN 5 MG TABLETS PO PRN (22:05)
[2019-09-23] MEDS: LORazepam 1 MG TABLET PO SCH ×4 (05:18→22:12)
[2019-09-23] MEDS ORDERED: diazePAM 5 MG TABLET PO SCH (06:00)
[2019-09-23] MEDS: PRENATAL VITAMINS W/ FOLIC ACID TABLET (FP) PO SCH (10:23)
[2019-09-23] MEDS: POTASSIUM CHLORIDE TABS 20 MEQ TABLET.ER (FP) PO SCH ×2 (10:23→22:12)
--- NOTE | 2019-09-23 12:42 | PN ---
[facility] CIWA - CIWA Score Nausea/Vomitin-No Nausea/No Vomiting Muscle Tremors: 2 Anxiety: 1-Mildly Anxious Agitation: 1-Slight > Activity Paroxysmal Sweats: 1-Minimal Palms Moist Orientation: 0-Oriented Tacttile Disturbances: 0-None Auditory Disturbances: 0-None Visual Disturbances: 0-None Headache: 0-None Present CIWA-Ar Total Score: 5 [facility] Progress Note (SOAP) Subjective: sweats mild shakes interrupted sleep Objective: 09/23/19 12:38 Vital Signs Temperature 98.1 F 09/23/19 09:54 Pulse Rate 115 H 09/23/19 09:54 Respiratory Rate 18 09/23/19 09:54 Blood Pressure 138/109 H 09/23/19 09:54 O2 Sat by Pulse Oximetry (%) Laboratory Tests 09/22/19 09/22/19 07:50 07:50 WBC 5.9 RBC 4.48 Hgb 13.2 Hct 38.7 MCV 86.4 MCH 29.4 D MCHC 34.0 RDW 13.4 D Plt Count 204 D MPV 7.6 Sodium 138 Potassium 3.4 L Chloride 99 Carbon Dioxide 27 Anion Gap 12 BUN 15.8 Creatinine 0.9 Est GFR (CKD-EPI)AfAm 125.13 Est GFR (CKD-EPI)NonAf 107.97 Random Glucose 173 H Calcium 8.9 Total Bilirubin 0.7 AST 39 H ALT 56 Alkaline Phosphatase 66 Total Protein 7.4 Albumin 3.7 labs pending aaox3 ambulating no acute distress kdur ordered repeated labs pending Assessment: 09/23/19 12:43 mild withdrawal sx Plan: continue detox interrupted sleep d/c in am
[2019-09-23 13:15] LABS: URINE APPEARANCE CLEAR; URINE BILIRUBIN NEGATIVE (NEGATIVE); URINE COLOR YELLOW; URINE GLUCOSE (UA) NEGATIVE (NEGATIVE); URINE KETONE NEGATIVE (NEGATIVE); URINE LEUK ESTERASE NEGATIVE (NEGATIVE); URINE NITRITE NEGATIVE (NEGATIVE); URINE PROTEIN NEGATIVE (NEGATIVE)
[2019-09-23] MEDS: MELATONIN 5 MG TABLETS PO PRN (22:12)
[2019-09-23] MEDS: THIAMINE HCL 100 MG TABLET (FP) PO SCH (22:12)
[2019-09-24] MEDS ORDERED: LORazepam 0.5 MG TABLET PO PRN
[2019-09-24] MEDS ORDERED: LORazepam 0.5 MG TABLET PO SCH (05:00)
[2019-09-24] MEDS ORDERED: diazePAM 5 MG TABLET PO ONE (06:00)
[2019-09-24 06:05] VITALS: TEMP 97.9
[2019-09-24 06:39] VITALS: BP 139/79; PULSE 90
--- NOTE | 2019-09-24 08:53 | DS ---
[facility] Detox Discharge Summary Admission Date: 09/21/19 Discharge Date: 09/24/19 - History Present History: Alcohol Dependence - Physical Exam Results Vital Signs: Vital Signs Temperature 97.9 F 09/24/19 06:00 Pulse Rate 90 09/24/19 06:38 Respiratory Rate 18 09/24/19 06:38 Blood Pressure 139/79 09/24/19 06:38 O2 Sat by Pulse Oximetry (%) Pertinent Admission Physical Exam Findings: pt arrived in withdrawals Vital Signs Temperature 97.9 F 09/24/19 06:00 Pulse Rate 90 09/24/19 06:38 Respiratory Rate 18 09/24/19 06:38 Blood Pressure 139/79 09/24/19 06:38 O2 Sat by Pulse Oximetry (%) Laboratory Tests 09/22/19 09/22/19 09/23/19 07:50 07:50 08:20 WBC 5.9 RBC 4.48 Hgb 13.2 Hct 38.7 MCV 86.4 MCH 29.4 D MCHC 34.0 RDW 13.4 D Plt Count 204 D MPV 7.6 Sodium 138 Potassium 3.4 L Chloride 99 Carbon Dioxide 27 Anion Gap 12 BUN 15.8 Creatinine 0.9 Est GFR (CKD-EPI)AfAm 125.13 Est GFR (CKD-EPI)NonAf 107.97 Random Glucose 173 H Calcium 8.9 Total Bilirubin 0.7 AST 39 H ALT 56 Alkaline Phosphatase 66 Total Protein 7.4 Albumin 3.7 Urine Color Yellow Urine Appearance Clear Urine pH 7.0 D Ur Specific Ways[place] 1.020 Urine Protein Negative Urine Glucose (UA) Negative Urine Ketones Negative Urine Blood Negative Urine Nitrite Negative Urine Bilirubin Negative Urine Urobilinogen 1.0 Ur Leukocyte Esterase Negative pt is aaox3 ambulating no acute distress no s/s of withdrawals - Treatment Hospital Course: Detox Protocol Followed, Detoxed Safely, Responded well, Discharged Condition Good, Rehab Referral Accepted - Medication Discharge Medications: Ambulatory Orders NK [No Known Home Medication] 09/21/19 - Diagnosis (1) Alcohol dependence with uncomplicated withdrawal Current Visit: Yes Status: Chronic (2) Asthma, exercise induced Current Visit: Yes Status: Chronic (3) At risk for dehydration due to poor fluid intake Current Visit: Yes Status: Acute (4) Depressed affect Current Visit: Yes Status: Acute (5) History of positive PPD Current Visit: Yes Status: Acute (6) Alcohol-induced mood disorder Current Visit: No Status: Acute (7) Hepatic abscess Current Visit: No Status: Acute (8) Postoperative ileus Current Visit: No Status: Acute (9) Anxiety Current Visit: No Status: Chronic (10) Bronchial asthma Current Visit: No Status: Chronic Qualifiers: Asthma severity: mild (11) Depression Current Visit: No Status: Suspected Qualifiers: Depression Type: unspecified Qualified Code(s): F32.9 - Major depressive disorder, single episode, unspecified - AMA Did Patient Leave Against Medical Advice: No
[2019-09-24] MEDS: PRENATAL VITAMINS W/ FOLIC ACID TABLET (FP) PO SCH (09:00)
[2019-09-24] MEDS: POTASSIUM CHLORIDE TABS 20 MEQ TABLET.ER (FP) PO SCH (09:00)
[2019-09-24 10:57] LABS: CALCIUM 9.3 mg/dL (8.5-10.1); POTASSIUM 3.6 mmol/L (3.5-5.1)
--- NOTE | 2019-09-24 12:02 | EKG ---
Test Reason : Blood Pressure : / mmHG Vent. Rate : 106 BPM Atrial Rate : 106 BPM P-R Int : 126 ms QRS Dur : 088 ms QT Int : 334 ms P-R-T Axes : 065 060 030 degrees QTc Int : 443 ms SINUS TACHYCARDIA INCOMPLETE RIGHT BUNDLE BRANCH BLOCK WHEN COMPARED WITH ECG OF 01-AUG-2018 08:59, NO SIGNIFICANT CHANGE WAS FOUND Confirmed by ABEL VALDOVINOS MD ([id number]) on 09/24/2019 12:01:41 PM Referred By: Confirmed By:ABEL VALDOVINOS MD
[2019-09-25] MEDS ORDERED: LORazepam 0.5 MG TABLET PO ONE (05:00)
== END 2019-09-24 09:05 | disposition home or self-care (01) | DRG 775 ==
LOC: YASAS 18:00 → Y6N 22:37
PROVIDERS: ADMIT Allergy & Immunology; ATTEND Allergy & Immunology
PROC: HZ2ZZZZ Detoxification Services for Substance Abuse Treatment (ICD-10-PCS; principal; 2019-09-21)
DX: F10.230 Alcohol dependence with withdrawal, uncomplicated (principal); F10.24 Alcohol dependence with alcohol-induced mood disorder; F41.9 Anxiety disorder, unspecified; F32.9 Major depressive disorder, single episode, unspecified; J45.990 Exercise induced bronchospasm; K75.0 Abscess of liver; E11.9 Type 2 diabetes mellitus without complications; Z86.69 Personal history of other diseases of the nervous system and sense organs; Z87.891 Personal history of nicotine dependence; R45.89 Other symptoms and signs involving emotional state; R76.11 Nonspecific reaction to tuberculin skin test without active tuberculosis; Z91.89 Other specified personal risk factors, not elsewhere classified; Z92.89 Personal history of other medical treatment; Y83.8 Other surgical procedures as the cause of abnormal reaction of the patient, or of later complication, without mention of misadventure at the time of the procedure; Y73.8 Miscellaneous gastroenterology and urology devices associated with adverse incidents, not elsewhere classified
CPT/HCPCS: 36415; 80048; 80053; 81003; 85027; 86593; 93005; 93010

== ENCOUNTER 2019-12-04 14:58 | Inpatient (IN) | payer OTHER ==
[2019-12-04 17:30] VITALS: BMI 27.5
--- NOTE | 2019-12-04 20:46 | HP ---
CIWA Score Nausea/Vomitin (vomiting x 3) Muscle Tremors: 4-Moderate,w/Arms Extend Anxiety: 4-Mod. Anxious/Guarded Agitation: 4-Moderately Restless Paroxysmal Sweats: 3 Orientation: 1-Uncertain about Date Tacttile Disturbances: 0-None Auditory Disturbances: 0-None Visual Disturbances: 0-None Headache: 0-None Present CIWA-Ar Total Score: 19 - Admission Criteria OASAS Guidelines: Admission for Medically Managed Detox: Requires at least one of the followin. CIWA greater than 12 2. Seizures within the past 24 hours 3. Delirium tremens within the past 24 hours 4. Hallucinations within the past 24 hours 5. Acute intervention needed for co occurring medical disorder 6. Acute intervention needed for co occurring psychiatric disorder 7. Severe withdrawal that cannot be handled at a lower level of care (continued vomiting, continued diarrhea, abnormal vital signs) requiring intravenous medication and/or fluids 8. Admitting History and Physical - Past Medical History Pulmonary: Yes: Asthma Endocrine: Yes: Diabetes Mellitus - Smoking History Smoking history: Former smoker Have you smoked in the past 12 months: No If you are a former smoker, when did you quit?: 10 YEARS AGO - Alcohol/Substance Use Hx Alcohol Use: Yes History of Substance Use: reports: None - Social History ADL: Independent Occupation: CPA History of Recent Travel: No Admission ROS [facility] Chief Complaint: Alcohol withdrawal symptoms Allergies/Adverse Reactions: Allergies Allergy/AdvReac Type Severity Reaction Status Date / Time No Known Allergies Allergy Verified 12/04/19 17:20 History of Present Illness: 39 years old male with a long history of alcohol dependence is seeking admission to detox. Patient has been admitted multiple times to detox and reports 2 years of sobriety. He has medical history of asthma, diabetes type 2 and psych. history of depression. He denies suicide attempt and suicidal ideation at this time. 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 Exam Limitations: No Limitations - Ebola screening Have you traveled outside of the country in the last 21 days: No Have you been sick,other than usual withdrawal symptoms: No Do you have a fever: No - Review of Systems Constitutional: Chills, Loss of Appetite, Malaise, Night Sweats, Changes in sleep EENT: reports: Nose Congestion Respiratory: reports: No Symptoms reported Cardiac: reports: No Symptoms Reported GI: reports: Diarrhea, Nausea, Poor Appetite, Poor Fluid Intake, Vomiting, Abdominal cramping : reports: No Symptoms Reported Musculoskeletal: reports: No Symptoms Reported Integumentary: reports: Dryness, Flushing Neuro: reports: Tremors Endocrine: reports: No Symptoms Reported Hematology: reports: No Symptoms Reported Psychiatric: reports: Mood/Affect Appropiate, Anxious, Depressed Other Systems: Reviewed and Negative Patient History - Patient Medical History Hx Anemia: No Hx Asthma: Yes (Albuterol) Hx Chronic Obstructive Pulmonary Disease (COPD): No Hx Cancer: No Hx Cardiac Disorders: No Hx Congestive Heart Failure: No Hx Hypertension: No Hx Hypercholesterolemia: No Hx Pacemaker: No HX Cerebrovascular Accident: No Hx Seizures: No Hx Dementia: No Hx Diabetes: Yes (Type 2 (not on medication)) Hx Gastrointestinal Disorders: No Hx Liver Disease: No Hx Genitourinary Disorders: No Hx Sexually Transmitted Disorders: No Hx Renal Disease (ESRD): No Hx Thyroid Disease: No Hx Human Immunodeficiency Virus (HIV): No (Negative 2013) Hx Hepatitis C: No Hx Depression: Yes (Not on medication) Hx Suicide Attempt: No (Denies suicidal ideation at this time) Hx Bipolar Disorder: No Hx Schizophrenia: No - Patient Surgical History Past Surgical History: Yes Hx Neurologic Surgery: No Hx Cataract Extraction: No Hx Cardiac Surgery: No Hx Lung Surgery: No Hx Breast Surgery: No Hx Breast Biopsy: No Hx Abdominal Surgery: No Hx Appendectomy: Yes Hx Cholecystectomy: No Hx Genitourinary Surgery: No Hx Section: No Hx Orthopedic Surgery: No Anesthesia Reaction: No - PPD History Previous Implant?: Yes Documented Results: Positive w/proof Implanted On Prior [facility] Admission?: No Date: 04/23/18 Results: CXR PPD to be Administered?: No - Reproductive History Patient is a Female of Child Bearing Age (11 -55 yrs old): No (male) - Smoking Cessation Smoking history: Former smoker Have you smoked in the past 12 months: No If you are a former smoker, when did you quit?: 10 YEARS AGO Cigars Per Day: 0 Hx Chewing Tobacco Use: No Initiated information on smoking cessation: No - Substance & Tx. History Hx Alcohol Use: Yes Hx Substance Use: No Substance Use Type: Alcohol Hx Substance Use Treatment: Yes ([facility]) - Substances abused Alcohol Substance route: Oral Frequency: Daily Amount used: liquor- 3 pints Age of first use: 6 Date of last use: 12/04/19 Admission Physical Exam [facility] - Vital Signs Vital Signs: Vital Signs - 24 hr 12/04/19 12/04/19 17:18 18:16 Temperature 98.2 F 98.2 F Pulse Rate 101 H 101 H Respiratory 18 18 Rate Blood Pressure 148/95 148/95 - Physical General Appearance: Yes: Moderate Distress, Tremorous, Sweating, Anxious HEENTM: Yes: Within Normal Limits Respiratory: Yes: Wheezing Neck: Yes: Within Normal Limits Breast: Yes: Breast Exam Deferred Cardiology: Yes: Tachycardia Abdominal: Yes: Normal Bowel Sounds, Protuberent Back: Yes: Normal Inspection Musculoskeletal: Yes: Within Normal Limits Extremities: Yes: Tremors Neurological: Yes: Within Normal Limits, Alert, Normal Mood/Affect Integumentary: Yes: Warm Lymphatic: Yes: Within Normal Limits - Diagnostic (1) History of positive PPD Current Visit: Yes Status: Chronic (2) Alcohol dependence with uncomplicated withdrawal Current Visit: Yes Status: Acute (3) Anxiety Current Visit: Yes Status: Chronic (4) Bronchial asthma Current Visit: Yes Status: Chronic Qualifiers: Asthma persistence: unspecified (5) Depression Current Visit: Yes Status: Chronic Qualifiers: Depression Type: unspecified Qualified Code(s): F32.9 - Major depressive disorder, single episode, unspecified Cleared for Admission [facility] - Detox or Rehab [facility] Level of Care: Medically Managed Detox Regimen/Protocol: Ativan Claeared for Rehab Admission: No Breathalyzer - Breathalyzer Breathalyzer: 0.263 Urine Drug Screen - Test Device Lot number: [id number] Expiration date: 09/17/21 - Control Is test valid?: Yes - Results Drug screen NEGATIVE: Yes Inpatient Rehab Admission - Rehab Decision to Admit Inpatient rehab admission?: No
[2019-12-04] MEDS ORDERED: METHOCARBAMOL 500 MG TABLET PO PRN (21:04)
[2019-12-04] MEDS ORDERED: LORazepam 1 MG TABLET PO PRN (21:04)
[2019-12-04] MEDS ORDERED: MAG HYDROX/AL HYDROX/SIMETH 30 ML UNIT-DOSE CUP PO PRN (21:04)
[2019-12-04] MEDS ORDERED: MELATONIN 5 MG TABLETS PO PRN (21:04)
[2019-12-04] MEDS ORDERED: MAGNESIUM HYDROX 2400MG/30ML ORAL SUSPENSION 30 ML CUP PO PRN (21:04)
[2019-12-04] MEDS ORDERED: MAGNESIUM CITRATE 300 ML BOTTLE PO PRN (21:04)
[2019-12-04] MEDS ORDERED: BISMUTH SUBSALICYLATE 524 MG/30 ML UD PO PRN (21:04)
[2019-12-04] MEDS ORDERED: ACETAMINOPHEN 325 MG TABLET (FP) PO PRN ×2 (21:04)
[2019-12-04] MEDS ORDERED: hydrOXYzine PAMOATE 25 MG CAPSULE (FP) PO PRN (21:04)
[2019-12-04] MEDS ORDERED: IBUPROFEN 400 MG TABLET (FP) PO PRN (21:04)
[2019-12-04] MEDS ORDERED: MENTHOL/PHENOL 1 EACH UD MM PRN (21:04)
[2019-12-04] MEDS: THIAMINE HCL 100 MG TABLET (FP) PO SCH (22:51)
[2019-12-04] MEDS: LORazepam 2 MG TABLET PO SCH (22:51)
[2019-12-05] MEDS: LORazepam 2 MG TABLET PO SCH ×4 (07:07→22:44)
--- NOTE | 2019-12-05 09:41 | PN ---
[facility] CIWA - CIWA Score Nausea/Vomitin-Mild Nausea/No Vomiting Muscle Tremors: 2 Anxiety: 2 Agitation: 2 Paroxysmal Sweats: No Perspiration Orientation: 0-Oriented Tacttile Disturbances: 1-Very Mild Itch/Numbness Auditory Disturbances: 0-None Visual Disturbances: 0-None Headache: 2-Mild CIWA-Ar Total Score: 10 BHS Progress Note (SOAP) Subjective: alert,irritable,anxious,interrupted sleep,pain in the body Objective: 12/05/19 09:40 Vital Signs Temperature 97.7 F 12/05/19 06:47 Pulse Rate 93 H 12/05/19 06:47 Respiratory Rate 18 12/05/19 06:47 Blood Pressure 114/62 12/05/19 06:47 O2 Sat by Pulse Oximetry (%) Laboratory Last Values POC Glucometer 153 UNITS (80-120) 12/05/19 07:02 12/05/19 09:41 labs pending Assessment: 12/05/19 09:41 withdrawal symptom Plan: continue detox ativan regimen
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
[2019-12-05 10:33] LABS: ALBUMIN 3.9 g/dl (3.4-5.0); BILIRUBIN,TOTAL 0.6 mg/dL (0.2-1); BLOOD UREA NITROGEN 15.8 mg/dL (7-18); CALCIUM 9.2 mg/dL (8.5-10.1); CREATININE 0.9 mg/dL (0.55-1.3); POTASSIUM 3.8 mmol/L (3.5-5.1); TOT PROT 7.8 g/dl (6.4-8.2)
[2019-12-05 10:34] LABS: HEMATOCRIT 40.5 % (35.4-49); HEMOGLOBIN 13.7 GM/dL (11.7-16.9); MCH 29.9 pg (25.7-33.7); MCHC 33.9 g/dl (32.0-35.9); MEAN CELL VOLUME 88.2 fl (80-96); MEAN PLT VOLUME 7.5 fl (7.5-11.1); PLATELET COUNT 285 K/MM3 (134-434); RBC 4.59 M/mm3 (4.00-5.60); RDW 14.5 % (11.9-15.9); WHITE BLOOD COUNT 7.2 K/mm3 (4.0-10.0)
--- NOTE | 2019-12-05 10:45 | EKG ---
Test Reason : Blood Pressure : / mmHG Vent. Rate : 094 BPM Atrial Rate : 094 BPM P-R Int : 128 ms QRS Dur : 090 ms QT Int : 366 ms P-R-T Axes : 062 062 033 degrees QTc Int : 457 ms NORMAL SINUS RHYTHM NORMAL ECG WHEN COMPARED WITH ECG OF 22-SEP-2019 00:13, NO SIGNIFICANT CHANGE WAS FOUND Confirmed by Lit Beauchamp MD ([id number]) on 12/05/2019 10:44:34 AM Referred By: Confirmed By:Lit Beauchamp MD
[2019-12-05] MEDS: PRENATAL VITAMINS W/ FOLIC ACID TABLET (FP) PO SCH (10:57)
[2019-12-05] MEDS: THIAMINE HCL 100 MG TABLET (FP) PO SCH (22:44)
[2019-12-06] MEDS: LORazepam 1 MG TABLET PO SCH ×4 (05:18→22:19)
[2019-12-06] MEDS: PRENATAL VITAMINS W/ FOLIC ACID TABLET (FP) PO SCH (11:30)
--- NOTE | 2019-12-06 13:19 | PN ---
S CIWA - CIWA Score Nausea/Vomitin-Mild Nausea/No Vomiting Muscle Tremors: 2 Anxiety: 2 Agitation: 2 Paroxysmal Sweats: No Perspiration Orientation: 0-Oriented Tacttile Disturbances: 1-Very Mild Itch/Numbness Auditory Disturbances: 0-None Visual Disturbances: 0-None Headache: 2-Mild CIWA-Ar Total Score: 10 S Progress Note (SOAP) Subjective: alert,irritable,anxious,interrupted sleep Objective: 12/06/19 13:16 Vital Signs Temperature 98.1 F 12/06/19 09:00 Pulse Rate 96 H 12/06/19 09:00 Respiratory Rate 18 12/06/19 09:00 Blood Pressure 150/94 12/06/19 09:00 O2 Sat by Pulse Oximetry (%) 12/06/19 13:17 Laboratory Last Values WBC 7.2 K/mm3 (4.0-10.0) 12/05/19 07:45 RBC 4.59 M/mm3 (4.00-5.60) 12/05/19 07:45 Hgb 13.7 GM/dL (11.7-16.9) 12/05/19 07:45 Hct 40.5 % (35.4-49) 12/05/19 07:45 MCV 88.2 fl (80-96) 12/05/19 07:45 MCH 29.9 pg (25.7-33.7) 12/05/19 07:45 MCHC 33.9 g/dl (32.0-35.9) 12/05/19 07:45 RDW 14.5 % (11.9-15.9) 12/05/19 07:45 Plt Count 285 K/MM3 (134-434) D 12/05/19 07:45 MPV 7.5 fl (7.5-11.1) 12/05/19 07:45 Sodium 141 mmol/L (136-145) 12/05/19 07:45 Potassium 3.8 mmol/L (3.5-5.1) 12/05/19 07:45 Chloride 102 mmol/L (98-107) 12/05/19 07:45 Carbon Dioxide 29 mmol/L (21-32) 12/05/19 07:45 Anion Gap 10 MMOL/L (8-16) 12/05/19 07:45 BUN 15.8 mg/dL (7-18) 12/05/19 07:45 Creatinine 0.9 mg/dL (0.55-1.3) 12/05/19 07:45 Est GFR (CKD-EPI)AfAm 124.26 12/05/19 07:45 Est GFR (CKD-EPI)NonAf 107.21 12/05/19 07:45 POC Glucometer 158 UNITS (80-120) 12/06/19 06:38 Random Glucose 136 mg/dL (74-106) H 12/05/19 07:45 Calcium 9.2 mg/dL (8.5-10.1) 12/05/19 07:45 Total Bilirubin 0.6 mg/dL (0.2-1) 12/05/19 07:45 AST 22 U/L (15-37) 12/05/19 07:45 ALT 40 U/L (13-61) 12/05/19 07:45 Alkaline Phosphatase 69 U/L (45-117) 12/05/19 07:45 Total Protein 7.8 g/dl (6.4-8.2) 12/05/19 07:45 Albumin 3.9 g/dl (3.4-5.0) 12/05/19 07:45 RPR Titer Nonreactive (NONREACTIVE) 12/05/19 07:45 12/06/19 13:17 bgm 136 Assessment: 12/06/19 13:17 withdrawal symptom Plan: continue detox ativan regimen,ncs,bgm bid,start on metformin 500 mgs po daily
[2019-12-06] MEDS: THIAMINE HCL 100 MG TABLET (FP) PO SCH (22:19)
[2019-12-07] MEDS ORDERED: LORazepam 0.5 MG TABLET PO PRN
[2019-12-07] MEDS: LORazepam 0.5 MG TABLET PO SCH ×2 (05:29→10:23)
[2019-12-07] MEDS ORDERED: metFORMIN HCL 500 MG TABLET (FP) PO SCH (07:00)
[2019-12-07 09:44] VITALS: BP 145/79; PULSE 111; TEMP 98.1
[2019-12-07] MEDS: PRENATAL VITAMINS W/ FOLIC ACID TABLET (FP) PO SCH (10:23)
--- NOTE | 2019-12-07 10:31 | DS ---
[facility] Detox Discharge Summary Admission Date: 12/04/19 Discharge Date: 12/07/19 - History Present History: Alcohol Dependence Pertinent Past History: Pt requesting to go home today. Says he is not in withdrawal. Says he needs a letter indicating his admission here for excuse from school. Reviewed labs with pt: high BS- pt will f/u PCP for eval of DM. d/w pt low carb diet - Physical Exam Results Vital Signs: Vital Signs Temperature 98.1 F 12/07/19 08:41 Pulse Rate 111 H 12/07/19 08:41 Respiratory Rate 12/07/19 08:41 Blood Pressure 145/79 12/07/19 08:41 O2 Sat by Pulse Oximetry (%) - Treatment Hospital Course: Detox Protocol Followed, Detoxed Safely - Medication Discharge Medications: Ambulatory Orders NK [No Known Home Medication] 09/21/19
[2019-12-08] MEDS ORDERED: LORazepam 0.5 MG TABLET PO ONE (05:00)
== END 2019-12-07 13:00 | disposition home or self-care (01) | DRG 775 ==
LOC: YASAS 14:58 → Y6N 21:59
PROVIDERS: ADMIT Allergy & Immunology; ATTEND Allergy & Immunology
PROC: HZ2ZZZZ Detoxification Services for Substance Abuse Treatment (ICD-10-PCS; principal; 2019-12-04)
DX: F10.230 Alcohol dependence with withdrawal, uncomplicated (principal); F32.9 Major depressive disorder, single episode, unspecified; J45.909 Unspecified asthma, uncomplicated; E11.9 Type 2 diabetes mellitus without complications; Z79.84 Long term (current) use of oral hypoglycemic drugs; R76.11 Nonspecific reaction to tuberculin skin test without active tuberculosis
CPT/HCPCS: 36415; 71046-TC-FY; 80053; 82962; 85027; 86593; 93005; 93010

== ENCOUNTER 2020-08-01 14:23 | Inpatient (IN) | payer OTHER ==
--- OUTSIDE RECORDS SUMMARY | 2020-08-01 14:39 | XMS ---
:1980 [facility] Care Team Providers Name Role Phone [facility], [facility] Unavailable Unavailable Re-disclosure Warning The records that you are about to access may contain information from federally- assisted alcohol or drug abuse programs. If such information is present, then the following federally mandated warning applies: This information has been disclosed to you from records protected by federal confidentiality rules (42 CFR part 2). The federal rules prohibit you from making any further disclosure of this information unless further disclosure is expressly permitted by the written consent of the person to whom it pertains or as otherwise permitted by 42 CFR part 2. A general authorization for the release of medical or other information is NOT sufficient for this purpose. The Federal rules restrict any use of the information to criminally investigate or prosecute any alcohol or drug abuse patient.The records that you are about to access may contain highly sensitive health information, the redisclosure of which is protected by Article 27-F of the [facility] Public Health law. If you continue you may haveaccess to information: Regarding HIV / AIDS; Provided by facilities licensed or operated by the [facility] Office of Mental Health; or Provided by the [facility] Office for People With Developmental Disabilities. If such information is present, then the following [facility] mandated warning applies: This information has been disclosed to you from confidential records which are protected by state law. State law prohibits you from making any further disclosure of this information without the specific written consent of the person to whom it pertains, or as otherwise permitted by law. Any unauthorized further disclosure in violation of state law may result in a fine or custodial sentence or both. A general authorization for the release of medical or other information is NOT sufficient authorization for further disclosure. Encounters Encounter Providers Location Date Indications Data Source(s ) Outpatient Attender: [facility] 12/11/2019 [facility] 01:51:17 PM [facility] [place]) EST Patient admitted. Insurance Providers Payer name Policy type Policy ID Covered Covered alliance party's Policy P bonnie / Coverage alliance party ID relationship to Young Inf ormation type young [employer] [id number] SP [id number] 000 [employer] [place] [id number] SP [id number] 000 MEDICAID [id number] SP [id number] [employer] [id number] SP [id number] 000 [employer] [place] [id number] SP [id number] 000 [employer] [place] [id number] SP [id number] 000
--- NOTE | 2020-08-01 15:19 | BHS.RME ---
Substance Use & Tx History - Substance Use History Alcohol Substance amount: one liter gin Frequency of use: Daily Substance route: Oral Date of Last Use: 08/01/20 Valium Substance amount: diazepam 5 mg Frequency of use: Once a month Substance route: Oral Date of Last Use: 07/31/20 (Dad gave rx for withdrawal) - Last Treatment Date of last treatment: Nov 2019 Where was last treatment: Detox Physical/Psych/Mental Status - Behavior General Behavior: Decreased activity Eye Contact: Normal - Cooperativeness Cooperativeness: Cooperative - Thinking Thought Processes: Tight Thought content: Future oriented - Physical Health Problems Is patient presently having any pain?: No Does patient presently have any injuries (include location): No Does patient currently have a fever: No CIWA Nausea/Vomitin-No Nausea/No Vomiting Muscle Tremors: 3 Anxiety: 3 Agitation: 3 Paroxysmal Sweats: No Perspiration Orientation: 0-Oriented Tacttile Disturbances: 0-None Auditory Disturbances: 1-Very Mild Visual Disturbances: 1-Very Mild Sensitivity Headache: 4-Moderately Severe CIWA-Ar Total Score: 15
--- NOTE | 2020-08-01 18:05 | HP ---
CIWA Score Nausea/Vomitin Muscle Tremors: 5 Anxiety: 4-Mod. Anxious/Guarded Agitation: 4-Moderately Restless Paroxysmal Sweats: 2 Orientation: 0-Oriented Tacttile Disturbances: 0-None Auditory Disturbances: 0-None Visual Disturbances: 0-None Headache: 4-Moderately Severe CIWA-Ar Total Score: 21 - Admission Criteria OASAS Guidelines: Admission for Medically Managed Detox: Requires at least one of the followin. CIWA greater than 12 2. Seizures within the past 24 hours 3. Delirium tremens within the past 24 hours 4. Hallucinations within the past 24 hours 5. Acute intervention needed for co occurring medical disorder 6. Acute intervention needed for co occurring psychiatric disorder 7. Severe withdrawal that cannot be handled at a lower level of care (continued vomiting, continued diarrhea, abnormal vital signs) requiring intravenous medication and/or fluids 8. Admitting History and Physical - Past Medical History Pulmonary: Yes: Asthma Endocrine: Yes: Diabetes Mellitus - Smoking History Smoking history: Former smoker Have you smoked in the past 12 months: No If you are a former smoker, when did you quit?: 10 YEARS AGO - Alcohol/Substance Use Hx Alcohol Use: Yes History of Substance Use: reports: None - Social History ADL: Independent Occupation: CPA History of Recent Travel: No Admission ROS [facility] Chief Complaint: Alcohol withdrawal symptoms Allergies/Adverse Reactions: Allergies Allergy/AdvReac Type Severity Reaction Status Date / Time No Known Allergies Allergy Verified 08/01/20 18:29 History of Present Illness: 39 years old male with a long history of alcohol dependence is seeking admission to detox. His last admission was for the period 12/04/2019 - 12/07/2019. He reports that he drinks 2 pints of Gin daily. He has medical hi story of asthma, Diabetes Mellitus type 2, psych. history of depression and he denies suicidal ideation at this time. He is unemployed, homeless and he denies any legal issues. 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 Exam Limitations: Intoxication - Ebola screening Have you traveled outside of the country in the last 21 days: No Have you had contact with anyone from an Ebola affected area: No Have you been sick,other than usual withdrawal symptoms: No Do you have a fever: No - Review of Systems Constitutional: Chills, Malaise, Night Sweats, Changes in sleep EENT: reports: No Symptoms Reported Respiratory: reports: No Symptoms reported Cardiac: reports: No Symptoms Reported GI: reports: Nausea, Poor Appetite, Poor Fluid Intake, Abdominal cramping : reports: No Symptoms Reported Musculoskeletal: reports: No Symptoms Reported Integumentary: reports: Dryness, Flushing Neuro: reports: Headache, Tremors Endocrine: reports: No Symptoms Reported Hematology: reports: No Symptoms Reported Psychiatric: reports: Anxious, Depressed Other Systems: Reviewed and Negative Patient History - Patient Medical History Hx Anemia: No Hx Asthma: Yes (Albuterol) Hx Chronic Obstructive Pulmonary Disease (COPD): No Hx Cancer: No Hx Cardiac Disorders: No Hx Congestive Heart Failure: No Hx Hypertension: No Hx Hypercholesterolemia: No Hx Pacemaker: No HX Cerebrovascular Accident: No Hx Seizures: Yes (Alcohol related seizures) Hx Dementia: No Hx Diabetes: Yes (Type 2 (not on medication)) Hx Gastrointestinal Disorders: No Hx Liver Disease: No Hx Genitourinary Disorders: No Hx Sexually Transmitted Disorders: No Hx Renal Disease (ESRD): No Hx Thyroid Disease: No Hx Human Immunodeficiency Virus (HIV): No (Negative 2020) Hx Hepatitis C: No Hx Depression: Yes (Not on medication) Hx Suicide Attempt: No (Denies suicidal ideation at this time) Hx Bipolar Disorder: No Hx Schizophrenia: No - Patient Surgical History Past Surgical History: Yes Hx Neurologic Surgery: No Hx Cataract Extraction: No Hx Cardiac Surgery: No Hx Lung Surgery: No Hx Abdominal Surgery: No Hx Appendectomy: Yes (2017) Hx Cholecystectomy: No Hx Genitourinary Surgery: No Hx Orthopedic Surgery: No Anesthesia Reaction: No - PPD History Previous Implant?: Yes (PPD Positive ) Documented Results: Positive w/o proof Implanted On Prior [facility] Admission?: No Date: 04/23/18 Results: CXR PPD to be Administered?: No - Reproductive History Patient is a Female of Child Bearing Age (11 -55 yrs old): No (Male) - Smoking Cessation Smoking history: Former smoker Have you smoked in the past 12 months: No If you are a former smoker, when did you quit?: Cigars Per Day: 0 Hx Chewing Tobacco Use: No Initiated information on smoking cessation: No - Substance & Tx. History Hx Alcohol Use: Yes Hx Substance Use: No Substance Use Type: Alcohol Hx Substance Use Treatment: Yes ([facility]) - Substances abused Alcohol Substance route: Oral Frequency: Daily Amount used: 2 pints Gin Age of first use: 7 Date of last use: 08/01/20 Admission Physical Exam [facility] - Physical General Appearance: Yes: Intoxicated, Tremorous, Irritable, Anxious HEENTM: Yes: Within Normal Limits Respiratory: Yes: Lungs Clear, Normal Breath Sounds, No Respiratory Distress Neck: Yes: Within Normal Limits Breast: Yes: Breast Exam Deferred Cardiology: Yes: Tachycardia Abdominal: Yes: Normal Bowel Sounds, Protuberent Genitourinary: Yes: Within Normal Limits Back: Yes: Normal Inspection Musculoskeletal: Yes: Within Normal Limits Extremities: Yes: Tremors Neurological: Yes: Within Normal Limits Integumentary: Yes: Within Normal Limits Lymphatic: Yes: Within Normal Limits - Diagnostic (1) Alcohol dependence with withdrawal, uncomplicated Current Visit: Yes Status: Acute (2) PPD positive Current Visit: Yes Status: Chronic (3) Bronchial asthma Current Visit: Yes Status: Chronic Qualifiers: Asthma severity: mild Asthma persistence: intermittent (4) Depression Current Visit: Yes Status: Chronic Qualifiers: Depression Type: unspecified Qualified Code(s): F32.9 - Major depressive disorder, single episode, unspecified (5) Type 2 diabetes mellitus Current Visit: Yes Status: Chronic Qualifiers: Diabetes mellitus complication status: without complication Cleared for Admission [facility] - Detox or Rehab [facility] Level of Care: Medically Managed Detox Regimen/Protocol: Ativan Claeared for Rehab Admission: No Breathalyzer - Breathalyzer Breathalyzer: 0.263 Urine Drug Screen - Test Device Lot number: [id number] Expiration date: 09/17/21 - Control Is test valid?: Yes - Results Drug screen NEGATIVE: Yes Inpatient Rehab Admission - Rehab Decision to Admit Inpatient rehab admission?: No
[2020-08-01] MEDS ORDERED: LORazepam 1 MG TABLET PO PRN (18:27)
[2020-08-01] MEDS ORDERED: ONDANSETRON *ODT* 4 MG TABLET SL PRN (18:27)
[2020-08-01] MEDS ORDERED: METHOCARBAMOL 500 MG TABLET PO PRN (18:27)
[2020-08-01] MEDS ORDERED: MAG HYDROX/AL HYDROX/SIMETH 30 ML UNIT-DOSE CUP PO PRN (18:27)
[2020-08-01] MEDS ORDERED: IBUPROFEN 400 MG TABLET (FP) PO PRN (18:27)
[2020-08-01] MEDS ORDERED: BISMUTH SUBSALICYLATE 524 MG/30 ML UD PO PRN (18:27)
[2020-08-01] MEDS ORDERED: ACETAMINOPHEN 325 MG TABLET (FP) PO PRN ×2 (18:27)
[2020-08-01] MEDS ORDERED: MENTHOL/PHENOL 1 EACH UD MM PRN (18:27)
[2020-08-01] MEDS ORDERED: MAGNESIUM HYDROX 2400MG/30ML ORAL SUSPENSION 30 ML CUP PO PRN (18:27)
[2020-08-01] MEDS ORDERED: MAGNESIUM CITRATE 300 ML BOTTLE PO PRN (18:27)
--- OUTSIDE RECORDS SUMMARY | 2020-08-01 18:37 | XMS ---
:1980 [facility] Care Team Providers Name Role Phone [facility] Unavailable Unavailable Re-disclosure Warning The [...] is protected by Article 27-F of the [facility] Public Health law. If you continue you may haveaccess to information: Regarding HIV / AIDS; Provided by facilities licensed or operated by the [facility] Office of Mental Health; or Provided by the [facility] Office for People With Developmental Disabilities. If such information is present, then the following [facility] mandated warning applies: This information has been [...] law may result in a fine or snf sentence or both. A general authorization for the release of medical or other information is NOT sufficient authorization for further disclosure. Encounters Encounter Providers Location Date Indications Data Source(s ) Outpatient Attender: [facility] 12/11/2019 [facility] 01:51:17 PM [facility] [place]) EST Patient admitted. Insurance Providers Payer name Policy type Policy ID Covered Covered alliance party's Policy P bonnie / Coverage alliance party ID relationship to Young Inf ormation type young [employer] [id number] SP [id number] 000 [employer]ALTH [employer]FF [place] [id number] SP [id number] 000 [employer]ALTH STRGY-AFF [place] [id number] SP [id number] 000 HEALTH STRGY-AFF [place] [id number] SP [id number] 000 MEDICAID [id number] SP [id number] [place] [id number] SP [id number] 000 HEALTH STRGY[employer]AFF [place] [id number] SP [id number] 000
[2020-08-01 19:09] VITALS: BMI 28.4
[2020-08-01] MEDS: MELATONIN 5 MG TABLETS PO SCH (22:22)
[2020-08-01] MEDS: LORazepam 2 MG TABLET PO SCH (22:22)
[2020-08-01] MEDS: THIAMINE HCL 100 MG TABLET (FP) PO SCH (22:22)
[2020-08-02] MEDS: LORazepam 2 MG TABLET PO SCH ×4 (06:23→22:46)
[2020-08-02] MEDS: PRENATAL VITAMINS W/ FOLIC ACID TABLET (FP) PO SCH (10:18)
[2020-08-02 11:59] LABS: HEMATOCRIT 44.8 % (35.4-49); HEMOGLOBIN 15.2 GM/dL (11.7-16.9); MCH 31.9 pg (25.7-33.7); MCHC 33.8 g/dl (32.0-35.9); MEAN CELL VOLUME 94.3 fl (80-96); MEAN PLT VOLUME 8.3 fl (7.5-11.1); PLATELET COUNT 157 K/MM3 (134-434); RBC 4.75 M/mm3 (4.00-5.60); RDW 16.5 % (11.9-15.9); WHITE BLOOD COUNT 3.7 K/mm3 (4.0-10.0)
[2020-08-02 12:06] LABS: ALBUMIN 4.1 g/dl (3.4-5.0); BILIRUBIN,TOTAL 1.4 mg/dL (0.2-1); BLOOD UREA NITROGEN 14.2 mg/dL (7-18); CREATININE 0.9 mg/dL (0.55-1.3); POTASSIUM 3.6 mmol/L (3.5-5.1); TOT PROT 8.2 g/dl (6.4-8.2)
--- NOTE | 2020-08-02 13:01 | PN ---
[facility] CIWA - CIWA Score Nausea/Vomitin-Mild Nausea/No Vomiting Muscle Tremors: 3 Anxiety: 4-Mod. Anxious/Guarded Agitation: 2 Paroxysmal Sweats: 2 Orientation: 0-Oriented Tacttile Disturbances: 0-None Auditory Disturbances: 0-None Visual Disturbances: 0-None Headache: 0-None Present CIWA-Ar Total Score: 12 S Progress Note (SOAP) Subjective: Complaints of anxiety, tremors, and sweats Objective: 08/02/20 13:00 Vital Signs 08/02/20 08/02/20 06:10 09:00 Temperature 98 F 97.6 F Pulse Rate 97 H 98 H Respiratory 20 18 Rate Blood Pressure 154/102 H 150/93 O2 Sat by Pulse 99 Oximetry (%) Laboratory Last Values WBC 3.7 K/mm3 (4.0-10.0) L 08/02/20 07:30 RBC 4.75 M/mm3 (4.00-5.60) 08/02/20 07:30 Hgb 15.2 GM/dL (11.7-16.9) 08/02/20 07:30 Hct 44.8 % (35.4-49) 08/02/20 07:30 MCV 94.3 fl (80-96) 08/02/20 07:30 MCH 31.9 pg (25.7-33.7) 08/02/20 07:30 MCHC 33.8 g/dl (32.0-35.9) 08/02/20 07:30 RDW 16.5 % (11.9-15.9) H 08/02/20 07:30 Plt Count 157 K/MM3 (134-434) D 08/02/20 07:30 MPV 8.3 fl (7.5-11.1) D 08/02/20 07:30 Sodium 137 mmol/L (136-145) 08/02/20 07:30 Potassium 3.6 mmol/L (3.5-5.1) 08/02/20 07:30 Chloride 101 mmol/L (98-107) 08/02/20 07:30 Carbon Dioxide 29 mmol/L (21-32) 08/02/20 07:30 Anion Gap 8 MMOL/L (8-16) 08/02/20 07:30 BUN 14.2 mg/dL (7-18) 08/02/20 07:30 Creatinine 0.9 mg/dL (0.55-1.3) 08/02/20 07:30 Est GFR (CKD-EPI)AfAm 124.26 08/02/20 07:30 Est GFR (CKD-EPI)NonAf 107.21 08/02/20 07:30 POC Glucometer 147 UNITS (80-120) 08/02/20 06:25 Random Glucose 176 mg/dL (74-106) H 08/02/20 07:30 Calcium 9.0 mg/dL (8.5-10.1) 08/02/20 07:30 Total Bilirubin 1.4 mg/dL (0.2-1) H 08/02/20 07:30 AST 65 U/L (15-37) H 08/02/20 07:30 ALT 97 U/L (13-61) H 08/02/20 07:30 Alkaline Phosphatase 51 U/L (45-117) 08/02/20 07:30 Total Protein 8.2 g/dl (6.4-8.2) 08/02/20 07:30 Albumin 4.1 g/dl (3.4-5.0) 08/02/20 07:30 Syphilis Serology Non-reactive (NONREACTIVE) 08/02/20 07:30 Labs noted. Assessment: 08/02/20 13:01 Patient seen and examined, alert and oriented x3, in acute respiratory distress. Full ROM, ambulatory in the unit without assistance. Skin warm to touch without lesions. Mild withdrawal symptoms. Plan: Continue detox protocol.
[2020-08-02] MEDS: MELATONIN 5 MG TABLETS PO SCH (22:46)
[2020-08-02] MEDS: THIAMINE HCL 100 MG TABLET (FP) PO SCH (22:47)
[2020-08-03] MEDS: LORazepam 1 MG TABLET PO SCH ×4 (05:32→22:01)
[2020-08-03] MEDS: PRENATAL VITAMINS W/ FOLIC ACID TABLET (FP) PO SCH (10:18)
--- NOTE | 2020-08-03 10:48 | PN ---
[facility] CIWA - CIWA Score Nausea/Vomitin-No Nausea/No Vomiting Muscle Tremors: 2 Anxiety: 3 Agitation: 2 Paroxysmal Sweats: 2 Orientation: 0-Oriented Tacttile Disturbances: 0-None Auditory Disturbances: 0-None Visual Disturbances: 0-None Headache: 0-None Present CIWA-Ar Total Score: 9 S Progress Note (SOAP) Subjective: C/O anxiety, chills, sweats, interrupted sleep and tremors. Objective: 08/03/20 10:52 Vital Signs 08/03/20 08/03/20 05:13 08:47 Temperature 98.2 F 97.7 F Pulse Rate 89 100 H Respiratory 16 16 Rate Blood Pressure 148/92 124/84 O2 Sat by Pulse 98 98 Oximetry (%) Laboratory Last Values WBC 3.7 K/mm3 (4.0-10.0) L 08/02/20 07:30 RBC 4.75 M/mm3 (4.00-5.60) 08/02/20 07:30 Hgb 15.2 GM/dL (11.7-16.9) 08/02/20 07:30 Hct 44.8 % (35.4-49) 08/02/20 07:30 MCV 94.3 fl (80-96) 08/02/20 07:30 MCH 31.9 pg (25.7-33.7) 08/02/20 07:30 MCHC 33.8 g/dl (32.0-35.9) 08/02/20 07:30 RDW 16.5 % (11.9-15.9) H 08/02/20 07:30 Plt Count 157 K/MM3 (134-434) D 08/02/20 07:30 MPV 8.3 fl (7.5-11.1) D 08/02/20 07:30 Sodium 137 mmol/L (136-145) 08/02/20 07:30 Potassium 3.6 mmol/L (3.5-5.1) 08/02/20 07:30 Chloride 101 mmol/L (98-107) 08/02/20 07:30 Carbon Dioxide 29 mmol/L (21-32) 08/02/20 07:30 Anion Gap 8 MMOL/L (8-16) 08/02/20 07:30 BUN 14.2 mg/dL (7-18) 08/02/20 07:30 Creatinine 0.9 mg/dL (0.55-1.3) 08/02/20 07:30 Est GFR (CKD-EPI)AfAm 124.26 08/02/20 07:30 Est GFR (CKD-EPI)NonAf 107.21 08/02/20 07:30 POC Glucometer 157 UNITS (80-120) 08/03/20 05:35 Random Glucose 176 mg/dL (74-106) H 08/02/20 07:30 Calcium 9.0 mg/dL (8.5-10.1) 08/02/20 07:30 Total Bilirubin 1.4 mg/dL (0.2-1) H 08/02/20 07:30 AST 65 U/L (15-37) H 08/02/20 07:30 ALT 97 U/L (13-61) H 08/02/20 07:30 Alkaline Phosphatase 51 U/L (45-117) 08/02/20 07:30 Total Protein 8.2 g/dl (6.4-8.2) 08/02/20 07:30 Albumin 4.1 g/dl (3.4-5.0) 08/02/20 07:30 Syphilis Serology Non-reactive (NONREACTIVE) 08/02/20 07:30 Labs noted. Assessment: 08/03/20 10:52 Alert and oriented x3, in no acute respiratory distress. Full ROM, ambulating in the unit without assistance. Withdrawal symptoms. Plan: Continue detox protocol.
[2020-08-03] MEDS: MELATONIN 5 MG TABLETS PO SCH (22:01)
[2020-08-03] MEDS: THIAMINE HCL 100 MG TABLET (FP) PO SCH (22:01)
[2020-08-04] MEDS ORDERED: LORazepam 0.5 MG TABLET PO PRN
[2020-08-04] MEDS: LORazepam 0.5 MG TABLET PO SCH ×4 (05:31→22:37)
[2020-08-04] MEDS: PRENATAL VITAMINS W/ FOLIC ACID TABLET (FP) PO SCH (10:05)
--- NOTE | 2020-08-04 11:50 | PN ---
[facility] CIWA - CIWA Score Nausea/Vomitin-No Nausea/No Vomiting Muscle Tremors: 2 Anxiety: 2 Agitation: 1-Slight > Activity Paroxysmal Sweats: No Perspiration Orientation: 0-Oriented Tacttile Disturbances: 0-None Auditory Disturbances: 0-None Visual Disturbances: 0-None Headache: 1-Very Mild CIWA-Ar Total Score: 6 S Progress Note (SOAP) Subjective: alert,irritable,anxious,interrupted sleep Objective: 08/04/20 14:13 Vital Signs Temperature 96.6 F L 08/04/20 12:55 Pulse Rate 93 H 08/04/20 12:55 Respiratory Rate 18 08/04/20 12:55 Blood Pressure 137/97 08/04/20 12:55 O2 Sat by Pulse Oximetry (%) 99 08/04/20 12:55 08/04/20 14:14 Laboratory Last Values WBC 3.7 K/mm3 (4.0-10.0) L 08/02/20 07:30 RBC 4.75 M/mm3 (4.00-5.60) 08/02/20 07:30 Hgb 15.2 GM/dL (11.7-16.9) 08/02/20 07:30 Hct 44.8 % (35.4-49) 08/02/20 07:30 MCV 94.3 fl (80-96) 08/02/20 07:30 MCH 31.9 pg (25.7-33.7) 08/02/20 07:30 MCHC 33.8 g/dl (32.0-35.9) 08/02/20 07:30 RDW 16.5 % (11.9-15.9) H 08/02/20 07:30 Plt Count 157 K/MM3 (134-434) D 08/02/20 07:30 MPV 8.3 fl (7.5-11.1) D 08/02/20 07:30 Sodium 137 mmol/L (136-145) 08/02/20 07:30 Potassium 3.6 mmol/L (3.5-5.1) 08/02/20 07:30 Chloride 101 mmol/L (98-107) 08/02/20 07:30 Carbon Dioxide 29 mmol/L (21-32) 08/02/20 07:30 Anion Gap 8 MMOL/L (8-16) 08/02/20 07:30 BUN 14.2 mg/dL (7-18) 08/02/20 07:30 Creatinine 0.9 mg/dL (0.55-1.3) 08/02/20 07:30 Est GFR (CKD-EPI)AfAm 124.26 08/02/20 07:30 Est GFR (CKD-EPI)NonAf 107.21 08/02/20 07:30 POC Glucometer 162 UNITS (80-120) 08/04/20 05:33 Random Glucose 176 mg/dL (74-106) H 08/02/20 07:30 Calcium 9.0 mg/dL (8.5-10.1) 08/02/20 07:30 Total Bilirubin 1.4 mg/dL (0.2-1) H 08/02/20 07:30 AST 65 U/L (15-37) H 08/02/20 07:30 ALT 97 U/L (13-61) H 08/02/20 07:30 Alkaline Phosphatase 51 U/L (45-117) 08/02/20 07:30 Total Protein 8.2 g/dl (6.4-8.2) 08/02/20 07:30 Albumin 4.1 g/dl (3.4-5.0) 08/02/20 07:30 Syphilis Serology Non-reactive (NONREACTIVE) 08/02/20 07:30 COVID-19 (LV) Not detected (Not Detected) 08/01/20 19:06 Assessment: 08/04/20 14:14 withdrawal symptom Plan: continue detox ativan regimen,life style modification on diet no concentrated sweet,elevation of liver enzymes,advise abstinence from alcohol, follow up with medical provider for follw up after discharge,discharge in am
[2020-08-04] MEDS: THIAMINE HCL 100 MG TABLET (FP) PO SCH (22:37)
[2020-08-04] MEDS: MELATONIN 5 MG TABLETS PO SCH (22:38)
[2020-08-05] MEDS ORDERED: LORazepam 0.5 MG TABLET PO ONE (05:00)
--- NOTE | 2020-08-05 09:47 | PN ---
[facility] CIWA - CIWA Score Nausea/Vomitin-No Nausea/No Vomiting Muscle Tremors: None Anxiety: 1-Mildly Anxious Agitation: 0-Normal Activity Paroxysmal Sweats: No Perspiration Orientation: 0-Oriented Tacttile Disturbances: 0-None Auditory Disturbances: 0-None Visual Disturbances: 0-None Headache: 0-None Present CIWA-Ar Total Score: 1 S Progress Note (SOAP) Subjective: alert no complaint Objective: 08/05/20 10:05 Vital Signs Temperature 97.1 F L 08/05/20 09:05 Pulse Rate 97 H 08/05/20 09:05 Respiratory Rate 18 08/05/20 09:05 Blood Pressure 138/80 08/05/20 09:05 O2 Sat by Pulse Oximetry (%) 99 08/05/20 09:05 Laboratory Last Values WBC 3.7 K/mm3 (4.0-10.0) L 08/02/20 07:30 RBC 4.75 M/mm3 (4.00-5.60) 08/02/20 07:30 Hgb 15.2 GM/dL (11.7-16.9) 08/02/20 07:30 Hct 44.8 % (35.4-49) 08/02/20 07:30 MCV 94.3 fl (80-96) 08/02/20 07:30 MCH 31.9 pg (25.7-33.7) 08/02/20 07:30 MCHC 33.8 g/dl (32.0-35.9) 08/02/20 07:30 RDW 16.5 % (11.9-15.9) H 08/02/20 07:30 Plt Count 157 K/MM3 (134-434) D 08/02/20 07:30 MPV 8.3 fl (7.5-11.1) D 08/02/20 07:30 Sodium 137 mmol/L (136-145) 08/02/20 07:30 Potassium 3.6 mmol/L (3.5-5.1) 08/02/20 07:30 Chloride 101 mmol/L (98-107) 08/02/20 07:30 Carbon Dioxide 29 mmol/L (21-32) 08/02/20 07:30 Anion Gap 8 MMOL/L (8-16) 08/02/20 07:30 BUN 14.2 mg/dL (7-18) 08/02/20 07:30 Creatinine 0.9 mg/dL (0.55-1.3) 08/02/20 07:30 Est GFR (CKD-EPI)AfAm 124.26 08/02/20 07:30 Est GFR (CKD-EPI)NonAf 107.21 08/02/20 07:30 POC Glucometer 184 UNITS (80-120) 08/05/20 05:42 Random Glucose 176 mg/dL (74-106) H 08/02/20 07:30 Calcium 9.0 mg/dL (8.5-10.1) 08/02/20 07:30 Total Bilirubin 1.4 mg/dL (0.2-1) H 08/02/20 07:30 AST 65 U/L (15-37) H 08/02/20 07:30 ALT 97 U/L (13-61) H 08/02/20 07:30 Alkaline Phosphatase 51 U/L (45-117) 08/02/20 07:30 Total Protein 8.2 g/dl (6.4-8.2) 08/02/20 07:30 Albumin 4.1 g/dl (3.4-5.0) 08/02/20 07:30 Syphilis Serology Non-reactive (NONREACTIVE) 08/02/20 07:30 COVID-19 (LV) Not detected (Not Detected) 08/01/20 19:06 Assessment: 08/05/20 10:07 detox completed,no withdrawal symptom Plan: stable for discharge today,life style diet modification,follow up with after care program [facility] as arrangement
--- NOTE | 2020-08-05 09:48 | DS ---
[facility] Detox Discharge Summary Admission Date: 08/01/20 Discharge Date: 08/05/20 - History Present History: Alcohol Dependence Additional Comments: alert,oriented x 3 ambulation on the unit lung clear on auscultation bilaterally abdomen soft,no distension,no pain detox completed no withdrawal symptom stable for discharge follow up with after care program as arrangement ,rehab at [facility] total time spending on discharge 30 minutes advise life style diet modification ,no concentrated sweet,bgm monitoring abstinence fro alcohol due to elevated liver enzymes,and follow up with medical provider for follow up liver enzymes Pertinent Past History: type 2 dm positive ppd - Physical Exam Results Vital Signs: Vital Signs Temperature 96.8 F L 08/05/20 06:14 Pulse Rate 88 08/05/20 06:14 Respiratory Rate 20 08/05/20 06:14 Blood Pressure 135/91 08/05/20 06:14 O2 Sat by Pulse Oximetry (%) 100 08/05/20 06:14 Pertinent Admission Physical Exam Findings: withdrawal sign and symptom Laboratory Last Values WBC 3.7 K/mm3 (4.0-10.0) L 08/02/20 07:30 RBC 4.75 M/mm3 (4.00-5.60) 08/02/20 07:30 Hgb 15.2 GM/dL (11.7-16.9) 08/02/20 07:30 Hct 44.8 % (35.4-49) 08/02/20 07:30 MCV 94.3 fl (80-96) 08/02/20 07:30 MCH 31.9 pg (25.7-33.7) 08/02/20 07:30 MCHC 33.8 g/dl (32.0-35.9) 08/02/20 07:30 RDW 16.5 % (11.9-15.9) H 08/02/20 07:30 Plt Count 157 K/MM3 (134-434) D 08/02/20 07:30 MPV 8.3 fl (7.5-11.1) D 08/02/20 07:30 Sodium 137 mmol/L (136-145) 08/02/20 07:30 Potassium 3.6 mmol/L (3.5-5.1) 08/02/20 07:30 Chloride 101 mmol/L (98-107) 08/02/20 07:30 Carbon Dioxide 29 mmol/L (21-32) 08/02/20 07:30 Anion Gap 8 MMOL/L (8-16) 08/02/20 07:30 BUN 14.2 mg/dL (7-18) 08/02/20 07:30 Creatinine 0.9 mg/dL (0.55-1.3) 08/02/20 07:30 Est GFR (CKD-EPI)AfAm 124.26 08/02/20 07:30 Est GFR (CKD-EPI)NonAf 107.21 08/02/20 07:30 POC Glucometer 184 UNITS (80-120) 08/05/20 05:42 Random Glucose 176 mg/dL (74-106) H 08/02/20 07:30 Calcium 9.0 mg/dL (8.5-10.1) 08/02/20 07:30 Total Bilirubin 1.4 mg/dL (0.2-1) H 08/02/20 07:30 AST 65 U/L (15-37) H 08/02/20 07:30 ALT 97 U/L (13-61) H 08/02/20 07:30 Alkaline Phosphatase 51 U/L (45-117) 08/02/20 07:30 Total Protein 8.2 g/dl (6.4-8.2) 08/02/20 07:30 Albumin 4.1 g/dl (3.4-5.0) 08/02/20 07:30 Syphilis Serology Non-reactive (NONREACTIVE) 08/02/20 07:30 COVID-19 (LV) Not detected (Not Detected) 08/01/20 19:06 Vital Signs Temperature 97.1 F L 08/05/20 09:05 Pulse Rate 97 H 08/05/20 09:05 Respiratory Rate 18 08/05/20 09:05 Blood Pressure 138/80 08/05/20 09:05 O2 Sat by Pulse Oximetry (%) 99 08/05/20 09:05 - Treatment Hospital Course: Detox Protocol Followed, Detoxed Safely, Responded well, Discharged Condition Good, Rehab Referral Accepted Patient has Accepted a Rehab Referral to: [facility] - Medication Discharge Medications: Ambulatory Orders NK [No Known Home Medication] 09/21/19 - Diagnosis (1) Alcohol dependence with uncomplicated withdrawal Current Visit: No Status: Acute (2) Type 2 diabetes mellitus Current Visit: Yes Status: Chronic Qualifiers: Diabetes mellitus complication status: without complication (3) 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
[2020-08-05 09:56] VITALS: BP 138/80; PULSE 97; TEMP 97.1
[2020-08-05] MEDS: PRENATAL VITAMINS W/ FOLIC ACID TABLET (FP) PO SCH (11:03)
== END 2020-08-05 11:31 | disposition home or self-care (01) | DRG 775 ==
LOC: YASAS 14:23 → Y6N 18:33
PROVIDERS: ADMIT Allergy & Immunology; ATTEND Allergy & Immunology
PROC: HZ2ZZZZ Detoxification Services for Substance Abuse Treatment (ICD-10-PCS; principal; 2020-08-01)
DX: F10.230 Alcohol dependence with withdrawal, uncomplicated (principal); F13.90 Sedative, hypnotic, or anxiolytic use, unspecified, uncomplicated; F17.211 Nicotine dependence, cigarettes, in remission; F32.9 Major depressive disorder, single episode, unspecified; E11.9 Type 2 diabetes mellitus without complications; J45.20 Mild intermittent asthma, uncomplicated; R74.8 Abnormal levels of other serum enzymes; R76.11 Nonspecific reaction to tuberculin skin test without active tuberculosis; Z59.0 Homelessness
CPT/HCPCS: 36415; 80053; 82962; 85027; 86780; C9803; U0003

== ENCOUNTER 2021-03-30 00:19 | Inpatient (IN) | payer OTHER ==
[2021-03-30] MEDS ORDERED: MAGNESIUM CITRATE 300 ML BOTTLE PO PRN (00:51)
[2021-03-30] MEDS ORDERED: IBUPROFEN 400 MG TABLET (FP) PO PRN (00:51)
[2021-03-30] MEDS ORDERED: MAGNESIUM HYDROX 2400MG/30ML ORAL SUSPENSION 30 ML CUP PO PRN (00:51)
[2021-03-30] MEDS ORDERED: LORazepam 1 MG TABLET PO PRN (00:51)
[2021-03-30] MEDS ORDERED: MENTHOL/PHENOL 1 EACH UD MM PRN (00:51)
[2021-03-30] MEDS ORDERED: ONDANSETRON *ODT* 4 MG TABLET SL PRN (00:51)
[2021-03-30] MEDS ORDERED: MAG HYDROX/AL HYDROX/SIMETH 30 ML UNIT-DOSE CUP PO PRN (00:51)
[2021-03-30] MEDS ORDERED: BISMUTH SUBSALICYLATE 524 MG/30 ML PO PRN (00:51)
[2021-03-30] MEDS ORDERED: ACETAMINOPHEN 325 MG TABLET (FP) PO PRN ×2 (00:51)
[2021-03-30 02:04] VITALS: BMI 25.8
[2021-03-30] MEDS: LORazepam 1 MG TABLET PO SCH ×4 (06:49→22:09)
[2021-03-30] MEDS: PRENATAL VITAMINS W/ FOLIC ACID TABLET (FP) PO SCH (10:25)
[2021-03-30] MEDS: METHOCARBAMOL 500 MG TABLET PO PRN (10:27)
[2021-03-30] MEDS: THIAMINE HCL 100 MG TABLET (FP) PO SCH (22:08)
[2021-03-30] MEDS: MELATONIN 5 MG TABLETS PO SCH (22:11)
[2021-03-31] MEDS: LORazepam 1 MG TABLET PO SCH ×4 (05:40→22:10)
[2021-03-31] MEDS: PRENATAL VITAMINS W/ FOLIC ACID TABLET (FP) PO SCH (10:39)
[2021-03-31 11:31] LABS: HEMATOCRIT 39.7 % (35.4-49); HEMOGLOBIN 13.3 GM/dL (11.7-16.9); MCH 30.1 pg (25.7-33.7); MCHC 33.4 g/dl (32.0-35.9); MEAN PLT VOLUME 8.9 fl (7.5-11.1); PLATELET COUNT 91 K/MM3 (134-434); RBC 4.41 M/mm3 (4.00-5.60); RDW 14.6 % (11.9-15.9); WHITE BLOOD COUNT 4.3 K/mm3 (4.0-10.0)
[2021-03-31 11:46] LABS: ALBUMIN 4.2 g/dl (3.4-5.0); CALCIUM 8.8 mg/dL (8.5-10.1)
[2021-03-31 11:47] LABS: BLOOD UREA NITROGEN 20.1 mg/dL (7-18)
[2021-03-31 11:50] LABS: CREATININE 0.8 mg/dL (0.55-1.3)
[2021-03-31 11:51] LABS: BILIRUBIN,TOTAL 0.8 mg/dL (0.2-1)
[2021-03-31] MEDS: METHOCARBAMOL 500 MG TABLET PO PRN (17:30)
[2021-03-31] MEDS: THIAMINE HCL 100 MG TABLET (FP) PO SCH (22:09)
[2021-03-31] MEDS: MELATONIN 5 MG TABLETS PO SCH (22:09)
[2021-04-01] MEDS ORDERED: LORazepam 0.5 MG TABLET PO PRN
[2021-04-01] MEDS: LORazepam 0.5 MG TABLET PO SCH ×2 (06:08→10:24)
[2021-04-01 09:15] VITALS: BP 136/94; PULSE 109; TEMP 97.1
[2021-04-01] MEDS: PRENATAL VITAMINS W/ FOLIC ACID TABLET (FP) PO SCH (09:36)
[2021-04-02] MEDS ORDERED: LORazepam 0.5 MG TABLET PO ONE (05:00)
== END 2021-04-01 09:31 | disposition home or self-care (01) | DRG 775 ==
LOC: YASAS 00:19 → Y3N 01:50
PROVIDERS: ADMIT Allergy & Immunology; ATTEND Allergy & Immunology
PROC: HZ2ZZZZ Detoxification Services for Substance Abuse Treatment (ICD-10-PCS; principal; 2021-03-30)
DX: F10.230 Alcohol dependence with withdrawal, uncomplicated (principal); F10.24 Alcohol dependence with alcohol-induced mood disorder; F32.9 Major depressive disorder, single episode, unspecified; F41.9 Anxiety disorder, unspecified; E11.9 Type 2 diabetes mellitus without complications; J45.20 Mild intermittent asthma, uncomplicated; R76.11 Nonspecific reaction to tuberculin skin test without active tuberculosis; R63.8 Other symptoms and signs concerning food and fluid intake; R45.89 Other symptoms and signs involving emotional state; R74.8 Abnormal levels of other serum enzymes; Z56.0 Unemployment, unspecified; Z59.0 Homelessness
CPT/HCPCS: 36415; 71046-TC-FY; 80053; 82962; 85027; 86780; C9803; U0003; U0005

== ENCOUNTER 2021-04-22 21:03 | Inpatient (IN) | payer OTHER ==
[2021-04-22] MEDS ORDERED: ONDANSETRON *ODT* 4 MG TABLET SL PRN (22:07)
[2021-04-22] MEDS ORDERED: MENTHOL/PHENOL 1 EACH UD MM PRN (22:07)
[2021-04-22] MEDS ORDERED: ACETAMINOPHEN 325 MG TABLET (FP) PO PRN ×2 (22:07)
[2021-04-22] MEDS ORDERED: IBUPROFEN 400 MG TABLET (FP) PO PRN (22:07)
[2021-04-22] MEDS ORDERED: MAG HYDROX/AL HYDROX/SIMETH 30 ML UNIT-DOSE CUP PO PRN (22:07)
[2021-04-22] MEDS ORDERED: MAGNESIUM HYDROX 2400MG/30ML ORAL SUSPENSION 30 ML CUP PO PRN (22:07)
[2021-04-22] MEDS ORDERED: METHOCARBAMOL 500 MG TABLET PO PRN (22:07)
[2021-04-22] MEDS ORDERED: MAGNESIUM CITRATE 300 ML BOTTLE PO PRN (22:07)
[2021-04-22] MEDS ORDERED: hydrOXYzine PAMOATE 25 MG CAPSULE (FP) PO PRN (22:07)
[2021-04-22] MEDS ORDERED: BISMUTH SUBSALICYLATE 524 MG/30 ML PO PRN (22:07)
[2021-04-22] MEDS ORDERED: diazePAM 5 MG TABLET PO PRN (22:11)
[2021-04-22 23:49] VITALS: BMI 25.4
[2021-04-23] MEDS: diazePAM 5 MG TABLET PO SCH ×2 (01:10→06:08)
[2021-04-23 09:36] VITALS: BP 130/84; PULSE 102; TEMP 97.1
[2021-04-23] MEDS ORDERED: PRENATAL VITAMINS W/ FOLIC ACID TABLET (FP) PO SCH (10:00)
[2021-04-23] MEDS ORDERED: THIAMINE HCL 100 MG TABLET (FP) PO SCH (22:00)
[2021-04-23] MEDS ORDERED: MELATONIN 5 MG TABLETS PO SCH (22:00)
[2021-04-24] MEDS ORDERED: diazePAM 5 MG TABLET PO SCH (06:00)
[2021-04-25] MEDS ORDERED: diazePAM 5 MG TABLET PO SCH (06:00)
[2021-04-26] MEDS ORDERED: diazePAM 5 MG TABLET PO ONE (06:00)
== END 2021-04-23 09:15 | disposition left against medical advice (07) | DRG 770 ==
LOC: YASAS 21:03 → Y3N 22:26
PROVIDERS: ADMIT Allergy & Immunology; ATTEND Allergy & Immunology
PROC: HZ2ZZZZ Detoxification Services for Substance Abuse Treatment (ICD-10-PCS; principal; 2021-04-22)
DX: F10.230 Alcohol dependence with withdrawal, uncomplicated (principal); F10.220 Alcohol dependence with intoxication, uncomplicated; E11.9 Type 2 diabetes mellitus without complications; R76.11 Nonspecific reaction to tuberculin skin test without active tuberculosis
CPT/HCPCS: C9803; U0003; U0005

== ENCOUNTER 2021-05-10 03:47 | Inpatient (IN) | payer OTHER ==
[2021-05-10 04:00] VITALS: BMI 25.8
[2021-05-10] MEDS ORDERED: LORazepam 1 MG TABLET PO PRN (04:41)
[2021-05-10] MEDS ORDERED: BISMUTH SUBSALICYLATE 524 MG/30 ML PO PRN (04:41)
[2021-05-10] MEDS ORDERED: IBUPROFEN 400 MG TABLET (FP) PO PRN (04:41)
[2021-05-10] MEDS ORDERED: MAGNESIUM CITRATE 300 ML BOTTLE PO PRN (04:41)
[2021-05-10] MEDS ORDERED: MAG HYDROX/AL HYDROX/SIMETH 30 ML UNIT-DOSE CUP PO PRN (04:41)
[2021-05-10] MEDS ORDERED: METHOCARBAMOL 500 MG TABLET PO PRN (04:41)
[2021-05-10] MEDS ORDERED: MAGNESIUM HYDROX 2400MG/30ML ORAL SUSPENSION 30 ML CUP PO PRN (04:41)
[2021-05-10] MEDS ORDERED: ONDANSETRON *ODT* 4 MG TABLET SL PRN (04:41)
[2021-05-10] MEDS ORDERED: MENTHOL/PHENOL 1 EACH UD MM PRN (04:41)
[2021-05-10] MEDS ORDERED: ACETAMINOPHEN 325 MG TABLET (FP) PO PRN ×2 (04:41)
[2021-05-10] MEDS ORDERED: hydrOXYzine PAMOATE 25 MG CAPSULE (FP) PO ONE (05:00)
[2021-05-10] MEDS ORDERED: LORazepam 2 MG TABLET ONE (05:00)
[2021-05-10] MEDS: hydrOXYzine PAMOATE 25 MG CAPSULE (FP) PO SCH ×5 (05:05→22:20)
[2021-05-10] MEDS: LORazepam 1 MG TABLET PO SCH ×4 (05:05→22:20)
[2021-05-10] MEDS: PRENATAL VITAMINS W/ FOLIC ACID TABLET (FP) PO SCH (10:15)
[2021-05-10] MEDS: MELATONIN 5 MG TABLETS PO SCH (22:20)
[2021-05-10] MEDS: THIAMINE HCL 100 MG TABLET (FP) PO SCH (22:20)
[2021-05-11] MEDS: hydrOXYzine PAMOATE 25 MG CAPSULE (FP) PO SCH ×5 (05:52→22:05)
[2021-05-11] MEDS: LORazepam 1 MG TABLET PO SCH ×4 (05:53→22:04)
[2021-05-11] MEDS: PRENATAL VITAMINS W/ FOLIC ACID TABLET (FP) PO SCH (10:15)
[2021-05-11 10:23] LABS: CALCIUM 9.4 mg/dL (8.5-10.1); HEMATOCRIT 44.1 % (35.4-49); HEMOGLOBIN 14.8 GM/dL (11.7-16.9); MCH 31.1 pg (25.7-33.7); MCHC 33.5 g/dl (32.0-35.9); MEAN CELL VOLUME 92.8 fl (80-96); MEAN PLT VOLUME 7.7 fl (7.5-11.1); PLATELET COUNT 150 10^3/uL (134-434); RBC 4.76 M/mm3 (4.00-5.60); RDW 17.4 % (11.9-15.9); WHITE BLOOD COUNT 4.6 K/mm3 (4.0-10.0)
[2021-05-11 10:24] LABS: ALBUMIN 4.3 g/dl (3.4-5.0); BLOOD UREA NITROGEN 24.7 mg/dL (7-18)
[2021-05-11 10:27] LABS: CREATININE 0.9 mg/dL (0.55-1.3)
[2021-05-11] MEDS: POTASSIUM CHLORIDE ORAL LIQUID 20 MEQ/15 ML PO SCH ×2 (13:23→22:05)
[2021-05-11] MEDS: THIAMINE HCL 100 MG TABLET (FP) PO SCH (22:05)
[2021-05-11] MEDS: MELATONIN 5 MG TABLETS PO SCH (22:05)
[2021-05-12] MEDS ORDERED: LORazepam 0.5 MG TABLET PO PRN
[2021-05-12] MEDS: hydrOXYzine PAMOATE 25 MG CAPSULE (FP) PO SCH ×2 (05:47→10:08)
[2021-05-12] MEDS: LORazepam 0.5 MG TABLET PO SCH ×2 (05:47→10:05)
[2021-05-12] MEDS: POTASSIUM CHLORIDE ORAL LIQUID 20 MEQ/15 ML PO SCH (10:05)
[2021-05-12] MEDS: PRENATAL VITAMINS W/ FOLIC ACID TABLET (FP) PO SCH (10:08)
[2021-05-12 11:39] VITALS: BP 126/91; PULSE 108; TEMP 98.6
[2021-05-13] MEDS ORDERED: LORazepam 0.5 MG TABLET PO ONE (05:00)
== END 2021-05-12 11:06 | disposition home or self-care (01) | DRG 775 ==
LOC: YASAS 03:47 → Y3N 05:20
PROVIDERS: ADMIT Allergy & Immunology; ATTEND Allergy & Immunology
PROC: HZ2ZZZZ Detoxification Services for Substance Abuse Treatment (ICD-10-PCS; principal; 2021-05-10)
DX: F10.230 Alcohol dependence with withdrawal, uncomplicated (principal); F41.9 Anxiety disorder, unspecified; F32.9 Major depressive disorder, single episode, unspecified; E11.9 Type 2 diabetes mellitus without complications; J45.20 Mild intermittent asthma, uncomplicated; R76.11 Nonspecific reaction to tuberculin skin test without active tuberculosis; Z56.0 Unemployment, unspecified; Z59.0 Homelessness
CPT/HCPCS: 36415; 71046-TC-FY; 80053; 82962; 85027; 86780; C9803; U0003; U0005

== ENCOUNTER 2022-08-11 08:21 | Inpatient (IN) | payer OTHER ==
[2022-08-11 09:28] VITALS: BMI 22.1
[2022-08-11] MEDS ORDERED: MAGNESIUM HYDROX 2400MG/30ML ORAL SUSPENSION 30 ML CUP PO PRN (09:46)
[2022-08-11] MEDS ORDERED: MAGNESIUM CITRATE 300 ML BOTTLE PO PRN (09:46)
[2022-08-11] MEDS ORDERED: BENZOCAINE/MENTHOL (CHLORASEPTIC ) LOZENGE MM PRN (09:46)
[2022-08-11] MEDS ORDERED: NALOXONE HCL (KLOXXADO) 8 MG SPRAY NS PRN (09:46)
[2022-08-11] MEDS ORDERED: BISMUTH SUBSALICYLATE 524 MG/30 ML PO PRN (09:46)
[2022-08-11] MEDS ORDERED: LOPERAMIDE HCL 2 MG CAPSULE PO PRN (09:46)
[2022-08-11] MEDS ORDERED: ACETAMINOPHEN 325 MG TABLET (FP) PO PRN ×2 (09:46)
[2022-08-11] MEDS ORDERED: IBUPROFEN 600 MG TABLET (FP) PO PRN (09:46)
[2022-08-11] MEDS ORDERED: LORazepam 1 MG TABLET PO PRN (09:46)
[2022-08-11] MEDS ORDERED: IBUPROFEN 400 MG TABLET (FP) PO PRN (09:46)
[2022-08-11] MEDS ORDERED: DICYCLOMINE HCL 10 MG CAPSULE PO PRN (09:46)
[2022-08-11] MEDS ORDERED: MAG HYDROX/AL HYDROX/SIMETH 30 ML UNIT-DOSE CUP PO PRN (09:46)
[2022-08-11] MEDS ORDERED: NICOTINE 10 MG CARTRIDGE (INHALER) IH PRN (09:46)
[2022-08-11] MEDS ORDERED: ONDANSETRON *ODT* 4 MG TABLET SL PRN (09:46)
[2022-08-11] MEDS ORDERED: ALBUTEROL SO4 HFA INHALER IH PRN (09:51)
[2022-08-11] MEDS ORDERED: LORazepam 2 MG TABLET ONE (11:18)
[2022-08-11] MEDS: LORazepam 2 MG TABLET PO SCH ×3 (11:25→22:23)
[2022-08-11] MEDS: PRENATAL VITAMINS W/ FOLIC ACID TABLET (FP) PO SCH (12:01)
[2022-08-11] MEDS: MELATONIN 5 MG TABLETS PO SCH (22:23)
[2022-08-11] MEDS: THIAMINE HCL 100 MG TABLET (FP) PO SCH (22:23)
[2022-08-12] MEDS: LORazepam 2 MG TABLET PO SCH ×4 (05:35→22:25)
[2022-08-12] MEDS: PRENATAL VITAMINS W/ FOLIC ACID TABLET (FP) PO SCH (10:26)
[2022-08-12] MEDS: METHOCARBAMOL 500 MG TABLET PO PRN ×2 (10:26→17:51)
[2022-08-12 14:19] LABS: HEMATOCRIT 38.7 % (35.4-49); HEMOGLOBIN 12.9 GM/dL (11.7-16.9); MCH 32.2 pg (25.7-33.7); MCHC 33.2 g/dl (32.0-35.9); MEAN CELL VOLUME 96.9 fl (80-96); MEAN PLT VOLUME 8.3 fl (7.5-11.1); PLATELET COUNT 177 10^3/uL (134-434); RBC 3.99 M/mm3 (4.00-5.60); RDW 16.9 % (11.9-15.9); WHITE BLOOD COUNT 2.8 K/mm3 (4.0-10.0)
[2022-08-12 14:25] LABS: EPI CELLS 10 /uL (0-25.1); HYALINE CASTS 3 /uL (0-3.1); URINE APPEARANCE CLEAR; URINE BACTERIA 26 /uL (0-1359); URINE BILIRUBIN 1+ (NEGATIVE); URINE COLOR DK YELLOW; URINE GLUCOSE (UA) 1+ (NEGATIVE); URINE KETONE TRACE (NEGATIVE); URINE LEUK ESTERASE TRACE (NEGATIVE); URINE NITRITE NEGATIVE (NEGATIVE); URINE PROTEIN 1+ (NEGATIVE); URINE RBC 19 /uL (0-23.9); URINE WBC 7 /uL (0-25.8)
[2022-08-12 16:30] LABS: ALBUMIN 4.1 g/dl (3.4-5.0); BLOOD UREA NITROGEN 12.6 mg/dL (7-18)
[2022-08-12 16:34] LABS: CREATININE 0.7 mg/dL (0.55-1.3)
[2022-08-12 16:35] LABS: BILIRUBIN,TOTAL 0.6 mg/dL (0.2-1); TOT PROT 7.6 g/dl (6.4-8.2)
[2022-08-12] MEDS: MELATONIN 5 MG TABLETS PO SCH (22:25)
[2022-08-12] MEDS: THIAMINE HCL 100 MG TABLET (FP) PO SCH (22:25)
[2022-08-12] MEDS: hydrOXYzine PAMOATE 25 MG CAPSULE (FP) PO PRN (22:27)
[2022-08-13] MEDS ORDERED: LORazepam 0.5 MG TABLET ONE ×3 (04:13→10:29)
[2022-08-13] MEDS: LORazepam 1 MG TABLET PO SCH ×4 (05:17→22:24)
[2022-08-13] MEDS: PRENATAL VITAMINS W/ FOLIC ACID TABLET (FP) PO SCH (10:31)
[2022-08-13] MEDS: hydrOXYzine PAMOATE 25 MG CAPSULE (FP) PO PRN ×2 (17:27→22:26)
[2022-08-13] MEDS: METHOCARBAMOL 500 MG TABLET PO PRN (17:29)
[2022-08-13] MEDS: THIAMINE HCL 100 MG TABLET (FP) PO SCH (22:24)
[2022-08-13] MEDS: MELATONIN 5 MG TABLETS PO SCH (22:24)
[2022-08-14] MEDS ORDERED: LORazepam 0.5 MG TABLET PO PRN
[2022-08-14] MEDS: METHOCARBAMOL 500 MG TABLET PO PRN ×3 (02:13→22:50)
[2022-08-14] MEDS: LORazepam 0.5 MG TABLET PO SCH ×4 (05:21→22:46)
[2022-08-14] MEDS: hydrOXYzine PAMOATE 25 MG CAPSULE (FP) PO PRN ×4 (05:24→22:46)
[2022-08-14] MEDS: PRENATAL VITAMINS W/ FOLIC ACID TABLET (FP) PO SCH (10:24)
[2022-08-14 11:34] LABS: HEMATOCRIT 40.5 % (35.4-49); HEMOGLOBIN 13.6 GM/dL (11.7-16.9); MCH 32.7 pg (25.7-33.7); MCHC 33.6 g/dl (32.0-35.9); MEAN CELL VOLUME 97.2 fl (80-96); MEAN PLT VOLUME 8.5 fl (7.5-11.1); PLATELET COUNT 143 10^3/uL (134-434); RBC 4.16 M/mm3 (4.00-5.60); RDW 16.2 % (11.9-15.9); WHITE BLOOD COUNT 3.8 K/mm3 (4.0-10.0)
[2022-08-14] MEDS: THIAMINE HCL 100 MG TABLET (FP) PO SCH (22:46)
[2022-08-14] MEDS: MELATONIN 5 MG TABLETS PO SCH (22:46)
[2022-08-15] MEDS ORDERED: LORazepam 0.5 MG TABLET PO ONE (05:00)
[2022-08-15] MEDS: METHOCARBAMOL 500 MG TABLET PO PRN ×2 (05:18→19:12)
[2022-08-15] MEDS: hydrOXYzine PAMOATE 25 MG CAPSULE (FP) PO PRN ×2 (05:18→19:10)
[2022-08-15] MEDS: PRENATAL VITAMINS W/ FOLIC ACID TABLET (FP) PO SCH (10:08)
[2022-08-15] MEDS: MELATONIN 5 MG TABLETS PO SCH (23:24)
[2022-08-15] MEDS: THIAMINE HCL 100 MG TABLET (FP) PO SCH (23:24)
[2022-08-16] MEDS: PRENATAL VITAMINS W/ FOLIC ACID TABLET (FP) PO SCH (09:37)
[2022-08-16 09:44] VITALS: BP 134/81; PULSE 86; RESP 16; TEMP 98
== END 2022-08-16 09:59 | disposition other institution (70) | DRG 775 ==
LOC: YASAS 08:21 → Y6N 11:23
PROVIDERS: ADMIT Allergy & Immunology; ATTEND Surgery
PROC: HZ2ZZZZ Detoxification Services for Substance Abuse Treatment (ICD-10-PCS; principal; 2022-08-11)
DX: F10.230 Alcohol dependence with withdrawal, uncomplicated (principal); D72.819 Decreased white blood cell count, unspecified; J45.990 Exercise induced bronchospasm; J45.20 Mild intermittent asthma, uncomplicated; F17.210 Nicotine dependence, cigarettes, uncomplicated; R56.9 Unspecified convulsions; E11.9 Type 2 diabetes mellitus without complications; R76.11 Nonspecific reaction to tuberculin skin test without active tuberculosis; R74.8 Abnormal levels of other serum enzymes
CPT/HCPCS: 36415; 71046-TC-FY; 80053; 81003; 82962; 83036; 84450; 84460; 85027; 86780; 87811; C9803-CS; U0003; U0005